=== PATIENT | female | born 1945 | race Caucasian/White ===

== ENCOUNTER 2017-02-19 12:04 | Inpatient (IN) ==
--- NOTE | 2017-02-19 13:15 | PROVIDER DOCUMENTATION ---
This chart was entered by Rosaura Norton Scribe, acting as scribe for Sanjeev Kaur MD. HPI-General Adult - General Chief Complaint: Fall Stated Complaint: ams Time Seen by Provider: 02/19/17 12:14 Source: patient Allergies/Adverse Reactions: Patient Allergies Allergy/AdvReac Type Severity Reaction Status Date / Time codeine AdvReac Unknown Verified 02/15/17 14:48 - History of Present Illness -Gen Adult Nature of Presenting Problems: Pt is 71 y/o F presents to the ED with fall. Pt denies pain. Pt's states she was on the side of the bed and slide off in to floor. Pt has hx of AMS for 6 mths to a year. Pt's states no LOC. Location of Pain/Injury: reports: none Pain Radiation: reports: no radiation Quality of Pain: reports: none Onset/Duration: reports: this morning Timing: reports: gone now Context/Activities at Onset: reports: light activity Modifying Factors: improves with: nothing Associated Symptoms: reports: denies symptoms Similar Symptoms Previously?: No Recently seen or treated by another doctor?: No Review of Systems - Adult - REVIEW OF SYSTEMS - ADULT Constitutional: reports: no symptoms reported Eyes: reports: no symptoms reported Ears, Nose, Mouth & Throat: reports: no symptoms reported Cardiovascular: reports: no symptoms reported Respiratory: reports: no symptoms reported Gastrointestinal: reports: no symptoms reported Genitourinary: reports: no symptoms reported Musculoskeletal: reports: no symptoms reported Integumentary: reports: no symptoms reported Neurological: reports: no symptoms reported Psychiatric: reports: no symptoms reported Endocrine: reports: no symptoms reported Hematologic/Lymphatic: reports: no symptoms reported Allergic/Immunologic: reports: no symptoms reported All Other Systems: Reviewed and Negative Past History - Adult - PAST MEDICAL HISTORY-ADULT Review of Records: reports: Nursing Assessment Review, Medications Reviewed, Social history reviewed & non-contributory. Major Childhood Illnesses: reports: denies history Cardiovascular: reports: HTN Respiratory: reports: sleep apnea Gastrointestinal: reports: denies history Obstetrical/Gynecological: reports: denies history Genitourinary: reports: kidney disease Musculoskeletal: reports: denies history Neurological: reports: dementia Endocrine/Immune: reports: Diabetes Other Conditions: reports: denies history - IMMUNIZATION STATUS Childhood Immunizations: See Nurse Assessment Flu Vaccine: See Nurse Assessment - FAMILY HISTORY Family History: reviewed, not pertinent Physical Exam-General - PHYSICAL EXAM-ADULT Initial Vital Signs Reviewed: Yes - CONSTITUTIONAL General Appearance: appears well, alert, no apparent distress - EYES Eyes: PERRL/EOMI, pink conjunctivae - HEAD, EARS, NOSE, MOUTH & THROAT HENMT: normocephalic/atraumatic, moist mucous membranes, normal ENT inspection, TMs normal, pharynx normal - NECK Neck: non-tender, full range of motion, supple, normal inspection - RESPIRATORY Respiratory: chest non-tender, lungs clear, normal breath sounds, no pleuratic chest pain, no respiratory distress, no accessory muscle use - CARDIOVASCULAR Cardiovascular: normal peripheral pulses, regular rate, rhythm, no edema, no gallop, no JVD, no murmur - GASTROINTESTINAL (ABDOMEN) Abdominal Exam: normal bowel sounds, non tender, soft, no organomegaly, no pulsatile mass - LYMPHATIC Lymphatic: no adenopathy - MUSCULOSKELETAL Back Exam: normal inspection, no CVA tenderness, no vertebral tenderness Extremity: normal range of motion, non-tender, normal gait, normal inspection, no pedal edema, no calf tenderness, normal capillary refill, pelvis stable - SKIN Integumentary: normal color, normal turgor, warm/dry - NEUROLOGIC Neurologic: grossly normal - PSYCHIATRIC Psych/Mental Status: normal mood/affect Progress - PLAN OF CARE/RESULTS Progress/Plan/Lab Results: Vital Signs - 8 hr 02/19/17 12:16 Temperature 98.1 F Pulse Rate 83 Respiratory Rate 18 Blood Pressure 135/82 O2 Sat by Pulse Oximetry 99 Departure - Departure Time of Disposition Decision: 13:15 DIAGNOSIS: Altered mental status, unspecified Disposition: HOME 01 Certified Medical Emergency: Emergent Condition: Stable This chart was documented by the indicated scribe, (Rosaura Norton Scribe) and accurately reflects the services I performed and decisions made by , Sanjeev Kaur MD, as attested by the provider's signature.
[2017-02-19 13:44] LABS: MANUAL DIFF NEEDED? NO
[2017-02-19 13:49] LABS: URINE SOURCE CATH
[2017-02-19 13:50] LABS: BASO% 0.2 % (0.0-0.8); EOS# 0.01 X1000 (0.0-0.7); EOS% 0.2 % (0.0-10.0); HEMATOCRIT 35.4 % (37.0-47.0); HEMOGLOBIN 12.5 g/dL (12.0-16.0); IMM GRAN# 0.02 X1000 (0.0-0.04); IMM GRAN% 0.4 % (0.0-0.5); LYMPH# 0.72 X1000 (1.2-3.4); LYMPH% 14.8 % (20.5-51.1); MCH 29.3 PG (27-31); MCHC 35.3 g/dL (33-37); MCV 83.1 FL (81-99); MONO# 0.31 X1000 (0.11-0.59); MONO% 6.4 % (1.7-9.3); MPV 9.9 FL (7.4-10.4); PLT 123 X1000 (130-400); RBC 4.26 XMIL (4.2-5.4)
[2017-02-19 13:55] LABS: BILIRUBIN URINE SMALL (NEGATIVE); BLOOD URINE NEGATIVE (NEGATIVE); COLOR YELLOW; GLUCOSE URINE NEGATIVE (NEGATIVE); LEUKOCYTES URINE MODERATE (NEGATIVE); NITRITE URINE NEGATIVE (NEGATIVE); PROTEIN URINE 30 mg/dL (NEGATIVE); SP GRAVITY URINE 1.019; TURBIDITY URINE CLEAR (CLEAR); URINE MICRO REVIEW NEEDED? YES; UROBILINOGEN URINE NORMAL (NORMAL)
[2017-02-19 13:58] LABS: UR EPITHELIAL CELLS >10 /HPF (<10); URINE BACTERIA NEGATIVE /HPF; URINE RBC <10 /HPF (<10); URINE WBC <10 /HPF (<10)
[2017-02-19 14:01] LABS: URINE CASTS GRANULAR PRESENT; URINE CRYSTALS NONE SEEN; URINE SMALL ROUND CELLS NONE SEEN
[2017-02-19 14:11] LABS: ALBUMIN 3.3 g/dL (3.5-5.0); CALCIUM 8.9 mg/dL (8.8-10.2); POTASSIUM 3.1 mmol/L (3.5-5.1); TOTAL BILIRUBIN 0.91 mg/dL (0.20-1.00); TOTAL PROTEIN 6.2 g/dL (6.3-8.3)
[2017-02-19 16:37] LABS: ALBUMIN 3.1 g/dL (3.5-5.0); CALCIUM 8.6 mg/dL (8.8-10.2); POTASSIUM 3.9 mmol/L (3.5-5.1); TOTAL BILIRUBIN 0.87 mg/dL (0.20-1.00)
[2017-02-19] MEDS ORDERED: NS 250 ML IV ONE (17:33)
[2017-02-19] MEDS ORDERED: TAZIDIME 1 GM in NS 50 ML IV ONE (20:00)
[2017-02-19] MEDS ORDERED: ZOFRAN IV PRN (20:37)
[2017-02-19 21:05] LABS: HEMOGLOBIN A1C 5.7 % (4.8-6.0)
--- NOTE | 2017-02-19 21:39 | HISTORY AND PHYSICAL ---
Patient of Dr. Perea. REASON FOR ADMISSION: 2-day history of confusion. HISTORY OF PRESENT ILLNESS: Ms. Diane Mccartney is a 71-year-old lady with past medical history of type 2 diabetes, chronic kidney disease stage 3B who has been followed by Dr. Finn regarding condition of chronic kidney disease, 2 days ago she had a peritoneal dialysis catheter placed in her abdomen by Dr. Fletcher Amezcua and since then reports that she has been cognitively declining. Prior to this the family reports that she has had a very slow progressive decline in her mentation but nothing compared to what she has now. They report that her appetite for the last 2 months has declined significantly up to the point that she has lost about 63 pounds. They report that she has also been having protracted nausea and occasional vomiting. Nothing in the last 12 hours. No reported diarrhea, no blood loss from any orifice. The patient is not able to give me any history because the patient's symptoms mildly diminished. She will follow commands however and she did answer my question as to whether she is in pain which she said no. Other than this no polyuria, polydipsia reported by the who patient lives with. No cardiorespiratory complaints the best of the 's knowledge. REVIEW OF SYSTEMS: Is very limited because of the patient's current sensorium. ALLERGIES: Patient allergic to codeine, sulfa, cortisone, Levaquin, SUSANNAH inhibitors, oxycodone. HOME MEDICATIONS: Not listed here or in her history and physical done 2 days ago. FAMILY HISTORY: Patient's family's noted who has myasthenia gravis, ALS, diabetes. No heart disease, cancer or kidney disease in first-degree relatives. SOCIAL HISTORY: Stopped smoking over 10 years ago. Lives with her , does not drink or use illicit drugs. SURGICAL HISTORY: Had bilateral knee surgeries and recent PD catheter placement, cholecystectomy, laparoscopic surgery. LABORATORY WORK: White count 4000, hemoglobin and hematocrit 12 and 35, platelets 123,000. Sodium is 134, bicarb is 17, anion gap 21, BUN is 35, creatinine 1.5, AST 49, ALT is 60, albumin is 3.1, protein is 30, ketones 20, leukocytes moderate with greater than 10 epithelial cells. PHYSICAL EXAMINATION: VITAL SIGNS: Blood pressure is 133/78, heart rate is 88, respirations 18, temperature 98 degrees, 97% on room air. GENERAL: She is an elderly woman who is laying in bed not in acute distress. She is slightly drowsy and only oriented to name, not to place or time. Is unable to recognize 1 of her sons. Her affect is somewhat flat and mood is difficult to assess. HEENT: Head is normocephalic, atraumatic. YAQUELIN EOMI. She is anicteric and not pale. ENT and oropharynx exam is grossly normal except for some mild oral thrush. No signs of cyanosis noted. NECK: Supple. No JVD or carotid bruit, thyromegaly. CHEST: Clear to auscultation. Good air entry all lung owens. CARDIOVASCULAR: First and sounds heard. No gallops, rubs. Rhythm is regular. ABDOMEN: Full, soft with minimal tenderness around the PermCath site which is on the right upper quadrant area. Dressings clean and dry. Bowel sounds are hypoactive. RECTAL: Deferred at this time. No mass is appreciated. EXTREMITIES: No edema, clubbing or cyanosis. NEURO: No focal deficits noted, power is about 4/5 in all extremities. No facial asymmetry. The patient has some degree of delay in responding to questions. It seems there is some mild degree of stupor. SKIN: Intact. No breakdown, lesion seen. MUSCULAR EXAM: Grossly normal. ASSESSMENT: 1. Metabolic encephalopathy ? dehydration cannot rule out underlying infection, very mild uremia. 2. Chronic kidney disease stage 3B. 3. Dehydration. 4. Type 2 diabetes. PLAN: This time will hydrate patient overnight. Dr. Perea was consulted by ER physician and he will see her tomorrow. The question is will this patient benefit from dialysis. It is to early too soon to say. However it would not hurt to at least give her 1 or 2 treatments to see if her sensorium improves. Family said this decline has been going on for 3-6 months but took a turn for the last 2 days. It is also possible that this patient has peritoneal dialysis catheter infection ? It is highly unlikely but all the same I would prudently treat her with a 1 time dose of Fortaz till a specimen can be collected by dialysis nurse tomorrow. If the patient improves with aggressive hydration overnight then part of her encephalopathy may be due to the dehydration. She is not on any documented medications, will do Accu-Cheks however and only treat blood sugars if they are less than 200 with 2 units. A1c has been ordered to see where diabetes stands at this point in time and if her dialysis fails to improve this patient's nausea and poor appetite alternative etiologies need to be explored. cc: Heather Perez MD
[2017-02-19] MEDS: HEPARIN SUBQ SCH (21:44)
[2017-02-19] MEDS: NS 1,000 ML IV SCH (21:44)
[2017-02-20] MEDS: MYCOSTATIN SUSP PO SCH ×5 (00:16→21:35)
[2017-02-20] MEDS: NS 1,000 ML IV SCH ×2 (06:30→17:51)
[2017-02-20] MEDS ORDERED: BLISTEX MEDICATED BERRY LIP BALM TOP PRN (06:57)
[2017-02-20 07:08] LABS: MANUAL DIFF NEEDED? NO
[2017-02-20 07:26] LABS: EOS# 0.04 X1000 (0.0-0.7); HEMATOCRIT 34.7 % (37.0-47.0); HEMOGLOBIN 12.1 g/dL (12.0-16.0); IMM GRAN# 0.02 X1000 (0.0-0.04); IMM GRAN% 0.5 % (0.0-0.5); LYMPH# 0.87 X1000 (1.2-3.4); LYMPH% 21.1 % (20.5-51.1); MCH 29.2 PG (27-31); MCHC 34.9 g/dL (33-37); MCV 83.8 FL (81-99); MONO# 0.21 X1000 (0.11-0.59); MONO% 5.1 % (1.7-9.3); MPV 9.9 FL (7.4-10.4); NEUT% 72.3 % (42.2-75.2); PLT 117 X1000 (130-400); RBC 4.14 XMIL (4.2-5.4)
[2017-02-20 07:37] LABS: ALBUMIN 3.1 g/dL (3.5-5.0); CALCIUM 8.6 mg/dL (8.8-10.2); POTASSIUM 2.9 mmol/L (3.5-5.1); TOTAL BILIRUBIN 0.87 mg/dL (0.20-1.00); TOTAL PROTEIN 5.9 g/dL (6.3-8.3)
[2017-02-20] MEDS: HEPARIN SUBQ SCH ×2 (09:40→21:34)
--- NOTE | 2017-02-20 11:53 | Diag Imaging Result Document ---
PROCEDURE NAME: HEAD W/O CONTRAST - 02/20/2017 CT OF THE HEAD: A CT dose reduction protocol was used. COMPARISON: None. FINDINGS: There is moderate diffuse atrophy. No intracranial mass or hemorrhage. The skull is intact. The sinuses, mastoids, and middle ears are clear. IMPRESSION: Moderate cerebral atrophy. No acute disease. MTDD
[2017-02-20 12:00] LABS: URINE CULTURE NEEDED? NO; URINE MICRO REVIEW NEEDED? NO; URINE SOURCE CATH
[2017-02-20 12:22] LABS: BILIRUBIN URINE SMALL (NEGATIVE); BLOOD URINE NEGATIVE (NEGATIVE); COLOR YELLOW; GLUCOSE URINE NEGATIVE (NEGATIVE); LEUKOCYTES URINE NEGATIVE (NEGATIVE); NITRITE URINE NEGATIVE (NEGATIVE); PROTEIN URINE 30 mg/dL (NEGATIVE); SP GRAVITY URINE 1.019; TURBIDITY URINE CLEAR (CLEAR); UROBILINOGEN URINE NORMAL (NORMAL)
[2017-02-20 12:23] LABS: UR EPITHELIAL CELLS <10 /HPF (<10); URINE BACTERIA NEGATIVE /HPF; URINE RBC <10 /HPF (<10); URINE WBC <10 /HPF (<10)
--- NOTE | 2017-02-20 13:00 | Diag Imaging Result Document ---
PROCEDURE NAME: US RENAL 2 (RETROPER) COMPLETE - 02/20/2017 RENAL ULTRASOUND: FINDINGS: Right kidney is 8.7 x 4.2 x 4.9 cm. The left is 10.1 x 4.9 x 4.6 cm. The left renal pelvis is somewhat distended. The resistive index is 0.73. This is slightly above the normal range. Compared to the previous study of 01/23/2017, dilatation of the renal pelvis was not previously present. There is some cortical scarring present on the right side particularly over the upper pole. The urinary bladder is unremarkable. IMPRESSION: Mild left hydronephrosis. Otherwise, stable since 01/23/2017.
[2017-02-20] MEDS: POTASSIUM CHLORIDE 20 MEQ/SWI 20 MEQ/100 ML IVPB IV SCH ×2 (15:33→17:51)
--- NOTE | 2017-02-20 15:55 | CONSULTATION ---
DATE OF CONSULTATION: 02/20/2017 REASON FOR CONSULTATION: Renal failure. HISTORY OF PRESENT ILLNESS: Ms. Mccartney is a 71-year-old white female who I have met on 2 occasions in my office. She was referred to me with several months of anorexia, nausea, weakness and a creatinine of 3.5. Her symptoms certainly sound uremic in origin. She underwent ultrasound as well as a 24-hour urine which disclosed a clearance of 15 mL/minute. She had asymmetrical kidneys suggestive of renal vascular disease. Having discussed her symptoms and her kidney disease, we decided to initiate peritoneal dialysis. She had a PD catheter placed on Monday. Since that time, she has had declining sensorium. She has been unable to ambulate without assistance and she has been progressively less interactive. She is currently lying in bed with eyes open but is not able to verbalize any answers to any questions. The family states that these symptoms have been somewhat progressive in nature since Monday evening. She had been able to walk on Monday but Monday she required assistance and then Monday morning she ended up on the floor having tried to get herself up while her was away at [employer] School. No shortness of breath. She has not vomited. She has had essentially no p.o. intake and she has also made essentially no urine over that period of time. PAST MEDICAL HISTORY: 1. Chronic kidney disease as above. 2. Hypertension. 3. Persistent nausea and vomiting. ALLERGIES: Sulfa, codeine, cortisone, Levaquin, SUSANNAH inhibitors. FAMILY HISTORY: Positive for diabetes, ALS. No kidney disease. SOCIAL: Former smoker. Lives with her who has some cognitive decline. PHYSICAL EXAMINATION: Vital Signs: Blood pressure 154/83, heart rate 82, respirations 16, afebrile. Generally: She is an elderly woman lying in bed. Eyes are open. She looks at me and did follow the command to protrude the tongue. Otherwise did not follow commands. Skin: Warm and dry. HEENT: Conjunctivae are pink. Pupils are equal. Extraocular movements appear intact. Tongue is midline. It is dry and beefy red. Neck: Supple. Trachea is midline. Neck veins are not visible. Heart: Regular with S4. No rubs. Lungs: Have equal breath sounds. No crackles or wheezes. Abdomen: Soft and mildly tender her incision site. Bowel sounds are normal. No organomegaly or masses. Extremities: Have no edema, clubbing, or cyanosis. LABORATORY DATA: Sodium 140, potassium 2.9, chloride 102, bicarbonate 20, BUN 31, creatinine 1.2. Hemoglobin 12.1. IMPRESSION: 1. Altered sensorium following surgery. Etiology is not obvious to me. Certainly postanesthesia effects in a patient with chronic kidney disease might cause these symptoms. However, her kidney function is improved at least based on her laboratory data. I am not sure what to think of this so I will ask Dr. Ty to see her. CT of the brain is ordered. 2. Nausea, vomiting, anorexia. Again this was attributed to uremia but her labs have improved. The family states she is making no urine at this time. We will go ahead and initiate PD with 1 L dwells and at the same time remeasure her kidney function. She will require Pham catheter. 3. Electrolytes: We will treat hypokalemia. 4. Acid-base acceptable. cc: Maulik Perea MD
[2017-02-20] MEDS ORDERED: POTASSIUM CHLORIDE 20 MEQ/SWI 20 MEQ/100 ML IVPB IV SCH (17:00)
--- NOTE | 2017-02-20 17:27 | CONSULTATION ---
DATE OF CONSULTATION: 02/20/2017 Ms. Mccartney is 71 years old. She has history of renal failure and had recent catheter placed to have peritoneal dialysis. Later in the day following that, family spoke with her by phone and found her to seem a little bit sluggish but nothing really remarkable at that point. Later, she seemed more sluggish and seemed to have trouble maintaining her attention. Mgoealiz-jm-let at the bedside reports noticing some forgetfulness for the last year, gradually worse, particularly more prominent over the last few months since Thanksgiving. There is no history of serious head injury, previous diagnosed stroke, seizure, ethanol abuse, illicit drug use. She has seemed a little bit sluggish from time to time but has never had current appearance in the past, according to the mqbvoosk-yp-nqr. Past history is remarkable for diabetes mellitus. Workup here includes lab showing creatinine has declined from 3.5 to 1.5 and then 1.2. BUN has been steady in the low 30s. Liver enzymes are mildly elevated. She has been afebrile. Systolic blood pressures have ranged 120s to 160s. Vmknjtvw-kb-vtw does not know patient's home medications. I do not find an up- to-date home medication list in the current chart. There was listed hydrocodone/acetaminophen 10/325 to use as needed for pain after her peritoneal dialysis catheter was placed 3 days ago. I do not know whether she has used that drug or not. Ofngbbrx-bn-byq reports patient had hallucinations associated with codeine in the past. Hyogjdlr-wa-jri reports patient recently returned from imaging which may have been CT scan of the head ordered without contrast earlier this morning. I do not have that CT report. On exam, Ms. Mccartney is asleep, easily awakened and she remained alert during the time that I vigorously rubbed her shoulder. When not stimulated vigorously, she seemed quickly back to sleep. When awake, she answered some questions appropriately but was very slow to respond verbally and often did not answer questions including identifying ukxpyiyd-nf-ois by name, naming the hospital, naming the day of the week. She did follow simple commands including commands which required right/left distinction and digit distinction. Her speech was limited, a little bit dysarthric but understandable. She has full visual field tested grossly by confrontational finger counting. Extraocular movements are full. Facial motility seems a little diminished bilaterally, but symmetric. Gag is intact. Tongue is midline. She has equal tone in the limbs. She demonstrated good power in each limb. Plantar response is extensor bilaterally. Reflexes are absent at the ankles, 1+ at the wrists bilaterally. She grumbled and withdrew each leg when I attempted to check reflexes at the knees bilaterally. She has bilateral leg scars consistent with previous knee replacements. She was not attentive to careful sensory testing over the limbs. I did not ask her to stand or walk. IMPRESSION: 1. Global encephalopathy, no definite focal findings, no definite evidence of increased intracranial pressure or central nervous system infection. I suspect this is a multifactorial encephalopathy with possible contribution from her relatively mild uremia. Her baseline cognitive impairment syndrome would predispose her to more significant and more protracted encephalopathy with relatively minor toxic or metabolic disturbance. I will check on the CT when that is reported. We might consider EEG and possibly LP. I do not think any of this is urgent. 2. Mild cognitive impairment versus dementia at baseline. We can consider cholinesterase inhibitor trial when practical, not urgent. Thanks for asking me to see Ms. Mccartney. cc: MD SAWYER Viera III
--- NOTE | 2017-02-20 19:36 | PROGRESS NOTE ---
DATE: 02/20/2017 SUBJECTIVE: Today I was able to see Ms Mccartney, the was in the room as well as a daughter and a friend. Briefly Ms. Mccartney has been having some nausea, vomiting for some time. This has been attributed to the fact that she has kidney disease however Neto she had a peritoneal dialysis catheter placed in and since then she has been going downhill, extremely weak, not drinking, just confused since yesterday. From what the daughter just told me after the Pham catheter was inserted in the bladder about 1000 mL of urine was removed. OBJECTIVE: Vital signs: Blood pressure is 145/94, pulse of 89, respirations 18 , temperature is 98.3 degrees. General: Ms. Mccartney 71-year-old female. She was in bed. She is extremely confused and looked dry mucus. HEENT: Anicteric and acyanotic. Neck : Supple. Chest: Good air entry bilateral. No crepitations. No rhonchi. Cardiovascular: Regular rate and rhythm. Abdomen: Soft. Mildly distended. There is no peritoneal irritation, guarding or rebound tenderness. There is a PD catheter in place and dialysis ongoing. Extremities: No pedal edema. DISTRICT RECRUITER: Patient is awake, get extremely confused and is very inattentive, keeps moving her arms all over. She does not really answer your question appropriately. She moves her extremities. LABORATORY DATA: WBC is 4.12, hemoglobin is 12.1, platelet count of 117,000. Sodium is 140, potassium is 2.9, chloride is 102, bicarb is 20, creatinine is down to 1.2, AST is 48, ALT is 59. An ultrasound of the abdomen which was done just this morning has shown mild left hydronephrosis otherwise stable. ASSESSMENT: 1. Altered mental status secondary to global encephalopathy. Patient continues to be delirious. I think the etiology is likely be a toxic metabolic encephalopathy from UTI. Neurology has been consulted. Will follow up with their further recommendations for now. Patient did have urine retention and I am concerned she probably has urinary tract infection. An ultrasound has shown a mild left hydronephrosis so I think she probably has a genuine urinary tract infection which is causing this altered mentation. I have started her on Zosyn renally dosed while we wait for urology further recommendations. 2. Mild left hydronephrosis. We have started the patient on antibiotics. We will do a renal stone search CT scan and we will consult urology to evaluate the patient. It is more concerning because patient only has a left kidney which partially functions. The right kidney is completely shut down. 3. Hypokalemia. We will replace this. Since patient is getting peritoneal dialysis we anticipate that she is going to lose more potassium so we will aggressively replace this. 4. Clinical dehydration. Patient is getting intravenous fluids. I think part of her problem of her altered mentation could also be from dehydration. 5. Mild transaminitis. Etiology is unclear. Patient is about 33.8 in body mass index. There is suspicion she could have steatohepatitis non-alcohol related. We will however do hepatitis panel to make sure there is no any underlying viral hepatitis. Whenever patient is stable enough we can do an ultrasound of the liver to have a better idea anatomical. 2. Kidney failure. Patient is currently getting 24 urine collection for better characterization of the kidney function. 3. High anion gap metabolic acidosis on presentation. This could be just all related to the infection as well as the kidney disease, with the hydration though this has slightly improved. We will continue to monitor. So in general Ms. Mccartney continues to be altered and delirious. I think this is due to a left hydronephrosis with urinary tract infection and bladder outlet obstruction disease. Pham has been inserted, has have very good urine output. We will get Urology also to see the patient because of the left hydronephrosis. Will start the patient on antibiotics and we will do a renal stone search. cc: Joel Alexander MD MTDD
[2017-02-20] MEDS: BENADRYL IV PRN (21:34)
[2017-02-20] MEDS: ZOSYN 2.25 GM/NS 2.25 GM/50 ML IVPB IV SCH (21:34)
[2017-02-21] MEDS: ZOSYN 2.25 GM/NS 2.25 GM/50 ML IVPB IV SCH ×4 (02:26→21:10)
[2017-02-21] MEDS: NS 1,000 ML IV SCH ×3 (06:53→17:36)
[2017-02-21 07:08] LABS: MANUAL DIFF NEEDED? NO
[2017-02-21 07:15] LABS: EOS# 0.04 X1000 (0.0-0.7); HEMATOCRIT 33.6 % (37.0-47.0); HEMOGLOBIN 11.5 g/dL (12.0-16.0); LYMPH# 0.68 X1000 (1.2-3.4); LYMPH% 16.8 % (20.5-51.1); MCH 28.7 PG (27-31); MCHC 34.2 g/dL (33-37); MCV 83.8 FL (81-99); MPV 9.8 FL (7.4-10.4); NEUT% 77.2 % (42.2-75.2); PLT 105 X1000 (130-400)
[2017-02-21 07:31] LABS: ALBUMIN 2.8 g/dL (3.5-5.0); CALCIUM 8.4 mg/dL (8.8-10.2); POTASSIUM 3.2 mmol/L (3.5-5.1)
[2017-02-21] MEDS: FLOMAX PO SCH (08:34)
[2017-02-21] MEDS: HEPARIN SUBQ SCH ×2 (08:34→21:11)
[2017-02-21] MEDS: MYCOSTATIN SUSP PO SCH ×4 (08:44→21:11)
[2017-02-21 10:18] LABS: INR 1.01; PROTIME 10.6 Seconds (9.2-11.7)
[2017-02-21 10:36] LABS: RBC 4.01 XMIL (4.2-5.4)
--- NOTE | 2017-02-21 11:45 | PROGRESS NOTE ---
DATE: 02/21/2017 Ms. Mccartney looks about the same to me. This morning, I met and son. They confirmed cjihsdyk-jh-szy's report that forgetfulness has been ongoing, worse in recent months. However, she has never had current appearance in the past. She took only 1 recent dose of her hydrocodone/acetaminophen for pain and that did not seem to have any adverse effects. She did have hallucinations and a period of agitation following codeine in the remote past. She has not had any other new medication. We reviewed discussion of possibility that her baseline cognitive impairment would predispose her to relatively protracted encephalopathy with any metabolic disturbance. Her recent laboratory work does not show significant uremia. ASSESSMENT AND PLAN: I am optimistic that she will improve with time. If not, we will consider further neurologic workup. Would consider adding cholinesterase inhibitor at some point, not urgent Thanks for asking me to see Ms. Mccartney. cc: Lefty Ty III, MD MTDD
--- NOTE | 2017-02-21 12:20 | PROGRESS NOTE ---
DATE: 02/21/2017 SUBJECTIVE: She is really about the same. Eyes are open, but she really does not fix on me. She does make some purposeful movement, but mostly thrashes. OBJECTIVE: Vital Signs: Blood pressure 144/77, heart rate 79, respirations 20, afebrile. Intake 100 mL. Output 3 L. General: On physical exam, no acute distress. Skin: Warm and dry. Eyes: Conjunctivae are pink. Pupils are equal. Neck: Neck veins are not visible. Trachea is midline. Heart: Regular. Lungs: Have equal breath sounds. No crackles or wheezes. Abdomen: Soft and nontender. Bowel sounds are present. Mildly tender at surgical sites. No guarding or rebound. Extremities: Have no edema, clubbing, or cyanosis. IMPRESSION: 1. Delirium. Etiology is not obvious. Appreciate the help of consultants. 2. Urinary retention. Improved with Pham catheter. 3. New left-sided hydronephrosis. Evaluated by Dr. Everett. CT results are pending. 4. Chronic kidney disease. Her kidney function is really excellent and we will not use any further peritoneal dialysis. cc: Maulik Perea MD
[2017-02-21 13:12] LABS: UR PROTEIN 30.7 mg/dL
--- NOTE | 2017-02-21 14:18 | PROGRESS NOTE ---
DATE: 02/21/3027 SUBJECTIVE: Today Ms. Mccartney continues to be the same. She is still altered and very fidgety and is extremely inattentive. OBJECTIVE: Vital signs: Blood pressure is 144/77, pulse of 79, respiration is 20, temperature is 97.9 degrees. General: Ms. Mccartney is a 71-year-old female. She was in bed. She did not seem to be in any distress. HEENT: Mucosa is dry. Anicteric. Chest: Clear. Cardiovascular: Regular rate and rhythm. Abdomen: Soft. There is a peritoneal dialysis catheter in place. Bowel sounds are present. INGOT STRIPPER: Patient is awake, but non focalizing and extremely inattentive. She is able to follow some basic commands but she continues to be confused. LABORATORY DATA: WBC is 4.04, hemoglobin is 11.5, platelet count of 105,000. Chemistry is reviewed. Sodium is 3.2, bicarb is 20, BUN is 22, creatinine is 1.1, phosphorus is 1.5, and calcium is 8.4. ASSESSMENT: 1. Acute altered mental status with no focalizing signs. I think this is probably a toxic metabolic encephalopathy from infection versus severe dehydration. Patient is getting treatment for both. 2. Clinical dehydration. We will continue on IV hydration. 3. Mild left hydronephrosis. Patient had a CT scan of the kidneys with stone search protocol, we are still pending the report on this, and Urology has also been consulted. We will continue the patient on the current IV antibiotics whereas we are awaiting the Urology recommendations and also the urine culture. 4. Hypokalemia. We will continue to replace this. 5. Steatohepatitis. So in general Ms. Mccartney remains the same. Mentation has not really improved and her hydration status continues to be poor. We would therefore continue with the IV fluids, the current antibiotics, and will be pending the CT report on the left hydronephrosis that was picked up on the ultrasound. I understand the peritoneal dialysis has been withheld for now. cc: Joel Alexander MD
--- NOTE | 2017-02-21 16:08 | Diag Imaging Result Document ---
PROCEDURE NAME: RENAL STONE SEARCH - 02/21/2017 CT UROGRAM WITHOUT CONTRAST: COMPARISON: There are no previous CT examinations FINDINGS: There is a tiny amount of pleural fluid present on the right. There is minimal atelectasis in the lung bases particularly the left posterior costophrenic sulcus. There is a small amount of ascites. The spleen is not enlarged. The adrenal glands are not enlarged. There has apparently been previous cholecystectomy. The pancreas is slightly atrophic in appearance. There is fullness in the left renal pelvis. There is considerable cortical scarring on the right side. The left ureter is not distended. There is no evidence of ureterolithiasis. There is a Pham catheter in the bladder which is completely empty. There are numerous pelvic phleboliths. There is a peritoneal dialysis catheter in the pelvis to the right of the urinary bladder. There is no evidence of bowel obstruction. There may be some mucosal thickening in the ascending colon. There are fairly large segments of the descending colon and sigmoid which are completely nondistended. No significant adenopathy is present. There is some gas around the point at which the peritoneal dialysis catheter penetrates the abdominal fascia anteriorly over the upper pelvis. The significance of this finding is not entirely clear. Otherwise, there is no evidence of free intra-abdominal gas. There is no evidence of appendicitis. 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 There are spondylotic changes in the lumbar spine. IMPRESSION: Possibility of right-sided colitis cannot be excluded. No evidence of obstructing lesion in the left ureter on this noncontrast study.
[2017-02-22] MEDS: NS 1,000 ML IV SCH (04:18)
[2017-02-22] MEDS: ZOSYN 2.25 GM/NS 2.25 GM/50 ML IVPB IV SCH ×4 (04:18→21:57)
[2017-02-22 06:50] LABS: HEMATOCRIT 33.1 % (37.0-47.0); HEMOGLOBIN 11.1 g/dL (12.0-16.0); MCH 28.5 PG (27-31); MCHC 33.5 g/dL (33-37); MCV 85.1 FL (81-99); MPV 9.4 FL (7.4-10.4); RBC 3.89 XMIL (4.2-5.4)
[2017-02-22 07:01] LABS: ALBUMIN 2.6 g/dL (3.5-5.0); CALCIUM 7.8 mg/dL (8.8-10.2); POTASSIUM 3.1 mmol/L (3.5-5.1); TOTAL BILIRUBIN 1.15 mg/dL (0.20-1.00)
[2017-02-22] MEDS: FLOMAX PO SCH (08:06)
[2017-02-22] MEDS: HEPARIN SUBQ SCH ×2 (08:06→21:57)
[2017-02-22] MEDS: MYCOSTATIN SUSP PO SCH ×3 (08:06→22:01)
[2017-02-22] MEDS: VITAMIN D PO SCH (08:07)
[2017-02-22] MEDS ORDERED: STERILE WATER IV SCH (10:38)
[2017-02-22] MEDS ORDERED: SODIUM BICARBONATE IV SCH (10:38)
--- NOTE | 2017-02-22 11:03 | PROGRESS NOTE ---
DATE: 02/22/2017 SUBJECTIVE: The patient is really unchanged with mentation. Her eyes are open. She does not make eye contact. The family is at the bedside and state that she has periods where she will focus in and communicate, and then she will kind of zone back out. She has been unable to eat. OBJECTIVE: Vital Signs: Temperature 99.2 degrees, pulse 71, respiratory rate 18, blood pressure 144/73, intake 800 mL, output 1 L. General: This is an elderly female, resting in bed. She is awake but is not oriented. She really makes no indication that she is aware that anyone is there except to painful stimuli. It appears that her legs are painful to touch. HEENT: Normocephalic, atraumatic. Her oral mucosa is very dry. YAQUELIN. Neck: Supple. There is no JVD. Cardiovascular: Regular rate and rhythm. There is no murmur appreciated. Pulmonary: She has equal excursion. She is clear. Abdomen: Soft, with positive bowel sounds. : She has a Pham catheter with yellow urine noted. Extremities: Perhaps trace pretibial edema. She does wince and moan to palpation of extremities. Integumentary: Skin is thin, warm, and dry. Laboratory Data: WBC of 3.5, hemoglobin 11.1. Sodium 136, potassium 3.1, CO2 19, BUN 17, creatinine 1.1, albumin 2.6, calcium 7.8. She had a 24 hour urine that indicated creatinine clearance of greater than 100% and 614 mg of proteinuria. She had a renal CT completed yesterday afternoon that indicated the possibility of right-sided colitis but no obstruction, lesion in the left ureter. She has minimal atelectasis. No other acute findings. ASSESSMENT AND PLAN: 1. Delirium. Again, unclear etiology. We have been able to rule out that her renal function is contributing to this at this point. Continue to follow with the help of the consultants. 2. Urinary retention, improved with Pham catheter with perhaps left-sided hydronephrosis shown on ultrasound. Dr. Everett consulted. 3. Chronic kidney disease. Her 24 hour urine indicated that she has normal renal function once her urinary retention has been eliminated. She will no longer need peritoneal dialysis. We will consider having this removed at an appropriate time. Seen, data reviewed, discussed with Chery Rios on 02/22/17. I agree with the above assessment and plan of care. rg Dictated by AMEENA Deal for Maulik Perea MD cc: Maulik Perea MD [facility]
--- NOTE | 2017-02-22 11:23 | PROGRESS NOTE ---
DATE: 02/22/2017 Ms. Mccartney is sleeping peacefully now. Family reports she had been more alert, responding more appropriately, saying some understandable words earlier today. She had seemed more alert and attentive in the night, and had greater volume of speaking but speech was mumbled and hard to understand overnight. I continue to believe this is a global encephalopathy, likely toxic/metabolic with baseline cognitive impairment as the reason for the protracted recovery. I do not have any new suggestion today. Thanks for allowing me to follow Ms. Mccartney. cc: Lefty Ty III, MD
[2017-02-22 11:24] LABS: HEPATITIS PROFILE ACUTE SEE COMMENTS
[2017-02-22] MEDS ORDERED: D50W SYRINGE ONE (11:44)
[2017-02-22] MEDS ORDERED: D50W SYRINGE IV PRN (11:47)
--- NOTE | 2017-02-22 11:50 | CONSULTATION ---
DATE OF CONSULTATION: 02/21/2017 CONSULTING PHYSICIAN: Dr. Alexander. REASON FOR CONSULTATION: Left hydronephrosis, urinary retention. HISTORY OF PRESENT ILLNESS: A 71-year-old female with previous urologic history of glomerulonephritis which reportedly caused significant scarring in the right kidney. She has chronic kidney disease and recently underwent peritoneal dialysis catheter placement by general surgery. She had performed dialysis per family for a couple of days without difficulties. The family then reported the patient has reported persistent nausea, vomiting, loss of taste, as well as altered mentation. She was brought into the emergency room and admitted. She reportedly has not voided in several days, and Pham catheter was placed with 1 L of urine return. She had renal ultrasound 02/20/2017 which showed mild left hydronephrosis. The patient is currently not responding; hence the history was obtained per family. PAST SURGICAL HISTORY: Bilateral knee replacements, cholecystectomy, peritoneal dialysis catheter placement. PAST MEDICAL HISTORY: Chronic kidney disease, diabetes mellitus. ALLERGIES: Codeine. SOCIAL HISTORY: Per family, former smoker, no alcohol or drug use. FAMILY HISTORY: No history of malignancies. REVIEW OF SYSTEMS: Unobtainable secondary to patient's mental status. PHYSICAL EXAMINATION: Vital Signs: T 97.6 degrees, P 84, BP 149/74. General: No acute distress. HEENT: Normocephalic, atraumatic. Cardiovascular: Regular rhythm. Abdomen: Nontender, nondistended. : Bladder is nontender to palpation. Lymphatic: No groin lymphadenopathy noted. Dermatologic: No obvious skin rashes. PERTINENT LABORATORY DATA: White cell count of 4000, hematocrit of 34, creatinine of 1.1. PERTINENT IMAGES: Renal ultrasound on 02/20/2017 revealing mild left hydronephrosis, CT of abdomen and pelvis and renal stone search on 02/21/2017 revealing cortical scarring of the right kidney and mild left hydronephrosis. ASSESSMENT: A 71-year-old female with chronic kidney disease, who recently underwent peritoneal dialysis, catheter placement, and is now admitted with significant alteration mental status. I have explained to the patient that her hydronephrosis was likely related to urinary retention. CT scan did not show evidence of stones or sizable lesions. We discussed conservative approach with keeping Pham catheter in for 2-3 days, and then repeat renal ultrasound at which point the hydronephrosis will likely decline or resolve. I am not quite certain why she had urinary retention, but it likely has something to do with her mental status alteration. PLAN: 1. Keep Pham catheter in to gravity drainage for now. 2. Will plan to repeat renal ultrasound in a couple of days. Thank you for the consultation. cc: Hilton Everett MD
[2017-02-22 12:06] LABS: ALLEN TEST YES; BE -1.2 mmoll (-3.0-3.0); BLOOD TYPE ARTERIAL; DRAW SITE R RADIAL; METHB 1.8 % (0.0-1.5); O2(CT) 15.7 mL/dL (15.0-23.0); PCO2(98.6) 25 mmHg (35-45); PO2(98.6) 92 mmHg (60-100); SAMPLE BLOOD; SAO2 99.3 % (95.0-100.0); THB 11.6 g/dL (11.5-17.4); pH(98.6) 7.52 (7.35-7.45)
[2017-02-22 12:07] LABS: MODALITY ROOM AIR
--- NOTE | 2017-02-22 17:36 | PROGRESS NOTE ---
DATE: 02/22/2017 SUBJECTIVE: Today, Ms. Mccartney continues to be the same to me; however, the son and the at the bedside think that she probably showed a little bit of improvement in terms of her responses and interactiveness. OBJECTIVE: Vital signs: Blood pressure is 143/67, pulse of 73, respirations 20, temperature 98.4 degrees. General: Ms. Mccartney is a 71-year-old female. She was in bed. She was not in any distress. HEENT: Mucosa is slightly dry. Anicteric and acyanotic. Neck: Supple. Chest: Good air entry bilaterally. No crepitations. Abdomen: Soft. There is a peritoneal dialysis catheter in place. Bowel sounds are present. ACTUARY: Patient seems to be drowsy, but easily arousable. Does not follow any commands. Will only move extremities. Extremities: Patient will also groan and moan and then go back to sleep. LABORATORY DATA: WBC is 3.53, hemoglobin is 11.1, platelet count is 77,000. Chemistry is reviewed. Sodium is 146, potassium is 3.1, chloride is 109, bicarb is 19, creatinine is 1.1. Patient's 24 urine collection was normal. ASSESSMENT: 1. Altered mental status with no focalizing signs. We think this is due to toxic metabolic encephalopathy on top of baseline cognitive decline, however, patient has not shown any remarkable improvement in the 24 hour period. I would therefore go ahead and investigate her more thoroughly, including doing B12, folate levels. We will also do RPR, human immunodeficiency virus. We will do antinuclear antibody and sedimentation rate, C-reactive protein for inflammatory etiologies. We will do a thyroid stimulating hormone and cortisol level for metabolic, endocrine, and I will order magnetic resonance imaging of the brain to be done tomorrow if there is no improvement. If all these investigations come out to be normal, I would go ahead and do a lumbar puncture since this seems to be acute onset. Patient is already on antibiotics. We will plan to continue with the same. 2. Clinical dehydration. We will continue with IV fluids. 3. Mild left hydronephrosis. A computed tomography scan was negative. Neurology has seen the patient and the thought process is probably from the urine retention which caused the mild hydronephrosis, and the plan is to repeat an ultrasound in a couple of days. 4. Urinary retention. The patient had a Pham catheter which was easily evacuated. In the context of urinary retention, altered mental status, there is always the concern for normal pressure hydrocephalus. However, a computed tomography scan did not show any enlargement of the ventricles. We would, however, do an magnetic resonance imaging tomorrow morning to give us a better detailed anatomy of the brain. 5. Hypokalemia, resolved. 6. Transaminitis, improving. We think it is probably related to steatohepatitis. When we are doing the renal ultrasound, we would actually do a complete abdomen to also capture the liver. PLAN: In general the blood cultures have been negative. Urine culture has been negative. To my evaluation, I do not think Ms. Mccartney has shown any remarkable sensorium improvement. She continues to be stuporous. I am now getting more concerned since there has not been any improvement. I will therefore investigate her further to rule out any endocrinopathy or any inflammatory noninfectious. We will do magnetic resonance imaging to have a better anatomy of the brain and the structures and will pursue a lumbar puncture if there is no any remarkable improvement. Because of the mild gap acidosis, we had changed the patient's fluid to actually D5 with bicarbonate. However, her arterial blood gas actually shows pH of 7.52 which is extremely alkalotic, so I would discontinue the bicarb part of the fluid and only put her on D5 half-normal saline and recheck on her labs for tomorrow morning. I did explain all these changes to the son and the father who were both in the room and they were in agreement. CRITICAL TIME SPENT: 45. cc: Joel Alexander MD
[2017-02-22] MEDS: D5 1/2 NS 1,000 ML IV SCH (22:00)
[2017-02-23] MEDS: ZOSYN 2.25 GM/NS 2.25 GM/50 ML IVPB IV SCH ×2 (04:42→10:16)
[2017-02-23 07:13] LABS: HEMATOCRIT 30.9 % (37.0-47.0); HEMOGLOBIN 10.3 g/dL (12.0-16.0); MCH 28.3 PG (27-31); MCHC 33.3 g/dL (33-37); MCV 84.9 FL (81-99); MPV 9.9 FL (7.4-10.4); PLT 63 X1000 (130-400); RBC 3.64 XMIL (4.2-5.4)
[2017-02-23 07:19] LABS: RETIC% 0.21 % (0.8-2.1); RETIC-HE 24.7 PG (28.2-36.6)
[2017-02-23 07:44] LABS: ALBUMIN 2.7 g/dL (3.5-5.0); CALCIUM 7.6 mg/dL (8.8-10.2); POTASSIUM 2.7 mmol/L (3.5-5.1)
[2017-02-23 07:51] LABS: TOTAL IRON 118 ug/dL (49-151); UNBOUND IRON < 10 ug/dL (112-346)
[2017-02-23 07:52] LABS: FERRITIN 320 ng/mL (13-150)
[2017-02-23] MEDS ORDERED: FOLIC ACID 1 MG in NS 50.0 ML IV ONE (09:00)
[2017-02-23] MEDS ORDERED: M.V.I.-12 10 ML, FOLIC ACID 1 MG, MAGNESIUM SULFATE 1 GM, THIAMINE 100 MG in NS 1,000 ML IV ONE (09:00)
--- NOTE | 2017-02-23 09:13 | Diag Imaging Result Document ---
PROCEDURE NAME: MRI BRAIN W W/O CONTRAST - 02/22/2017 MRI BRAIN WITHOUT AND WITH INTRAVENOUS CONTRAST: COMPARISON: Head CT 02/20/2017. FINDINGS: There is no area of restricted diffusion. At the superior right parietal lobe, there is a small minimally enhancing round nodule based at the dura mater. This measures about 8 mm maximally. This is isointense to noble matter. No intracranial hemorrhage. The pituitary is very atrophic. No abnormal signal within the brain matter itself. IMPRESSION: 1. Mild cerebral atrophy. 2. Small right superior parietal meningeal-based nodule compatible with a small meningioma. 3. Global atrophy of the pituitary.
[2017-02-23 09:21] LABS: LYMPHS 44 % (21-51); MONO 2 % (1-9)
[2017-02-23 09:35] LABS: INR 1.04; PROTIME 10.9 Seconds (9.2-11.7)
[2017-02-23] MEDS: VITAMIN D PO SCH (10:17)
[2017-02-23] MEDS: FLOMAX PO SCH (10:17)
[2017-02-23] MEDS: CYANOCOBALAMIN IM SCH (10:17)
--- NOTE | 2017-02-23 11:00 | PROGRESS NOTE ---
DATE: 02/23/2017 SUBJECTIVE: Ms. Mccartney has continued to be a little bit more alert and attentive for brief periods of time day by day in the last few days. Son at the bedside reports for 10 or 15 minutes overnight, she communicated and spoke in words that could be understood, but not clear that she was responding to what was said to her. Also, son reports that just after her period of increased alertness, she grabbed the bed rails and had some shaking diffusely for several minutes. That shaking gradually improved in the night and has not happened this morning. She has had further workup including brain MRI reported to show mild cerebral atrophy, pituitary atrophy, small right parietal extraaxial nodule consistent with meningioma measuring 8 mm. LABORATORY WORK: Today sed rate is 84, cortisol 21.5, RPR nonreactive. Creatinine is down to 1.0. B12 is borderline at 214 with no previous B12 levels reported for comparison. MCV has consistently been 83-85 range this admission. Her anemia has been gradually worse, hemoglobin 13.2 last week, 10.3 today. Hepatitis profile was all nonreactive a few days ago. Vital signs: She continues afebrile. Blood pressures have ranged 120s to 150s systolic over the last several days. ASSESSMENT AND PLAN: I do not have any new thoughts from neurologic standpoint. She has baseline cognitive impairment and a protracted global encephalopathy showing some evidence of recovery in recent days. cc: Lefty Ty III, MD [facility]
--- NOTE | 2017-02-23 13:09 | PROGRESS NOTE ---
DATE: 02/23/2017 SUBJECTIVE: Today, Ms. Mccartney continues to be altered. According to the son, there are episodes where she seems to be a little bit more lucid and she has been having these jerky intermittent movements every now and then. As a matter of fact, during the encounter, there was an episode where I witnessed it myself. It lasted for less than a minute, where she was just shaking the right-sided upper extremity. During the episode, she was not able to respond and then, after the convulsive episode, she would just go to sleep in a postictal fashion, and I think this is a seizure. OBJECTIVE: Vital Signs: Blood pressure is 121/68, pulse of 73, respirations 18, temperature is 98.7 degrees. General: Ms Mccartney is a is a 71-year-old female. She is in bed. She is not in any distress. HEENT: Mucosa is slightly dry, but anicteric and acyanotic. Neck: Supple. Chest: Good air entry bilaterally. Cardiovascular: Regular rate and rhythm. Abdomen: Soft. Extremities: No pedal edema. Central Nervous System: Patient is extremely drowsy, will groan and moan to painful stimulation, and will move extremities on painful stimulation. LABORATORY DATA: WBC is 3.17, hemoglobin is 10.3, platelet count of 63,000. Chemistry: Sodium is 143, potassium is 2.9, chloride is 104, bicarbonate is 21, creatinine is 1.0, phosphorus is 1.6, calcium 7.6. Vitamin D is 5. B12 is 214. Folate is 2.0. C-reactive protein is high. ASSESSMENT: 1. Altered mental status with no focal signs. This is likely due to global encephalopathy. Etiology is not clear. The patient has high inflammatory markers and I am not sure if there is any inflammatory noninfectious etiology or a subacute or chronic type of infection that is driving her altered mentation. We would go ahead and order a lumbar puncture since the MRI was not very convincing. 2. Multivitamin and mineral deficiencies. The patient is extremely deficient in B12, folate, and vitamin D. We will replace all these, since this can also compound whatever she is going through now. Of note, her TSH and cortisol levels were normal. 3. Hypokalemia. We will replace this. 4. Clinical seizures. The patient has been having intermittent jerky movements. There was an episode that I witnessed myself that lasted less than a minute where the right side was just going with a rhythmic jerking movement. The patient was nonresponsive during the episode and, immediately after, she was just out of it and sleeping. I think this is a form of seizure, but I am not sure that is what is driving her to come to the hospital. I think there might be something underlying which is causing her medical problem and seizure just happens to be part of the whole syndrome. We will, however, load her with Keppra 1000 mg and schedule her b.i.d. Neurology is also on board and will follow up with their further recommendations. 5. Mild left hydronephrosis. This has been taken care of. 6. Urinary retention. Patient has Pham catheter and she is doing a whole lot better. 7. Transaminitis, also improving. 8. Pancytopenia, likely nutritional. We will keep a very close eye on this. We might end up having to consult Heme/Onc, but we will wait on that for today. So, in general, I think Ms. Mccartney continues to be stable, but with no clear diagnosis. We are still pending evaluation from Neurology and Nephrology today. We are going to do an LP. We are going to correct all her nutritional deficiencies and we will start the patient on IV Keppra until she is evaluated by Neurology. We will also order tests on the CSF. I have already spoken with Dr. Brewer on the LP request. I have spoken extensively to the son and the of the patient, who were both in the room at the time of the encounter. cc: Joel Alexander MD
--- NOTE | 2017-02-23 13:28 | Diag Imaging Result Document ---
PROCEDURE NAME: LUMBAR PUNCT W/FLURO GUIDE - 02/23/2017 FLUOROSCOPIC GUIDED LUMBAR PUNCTURE: COMPARISON: None. TECHNIQUE: The patient was placed prone on the fluoroscopy table. Overlying skin was prepped and draped in sterile fashion. Anesthesia was achieved with injection of 5 mL of 1% lidocaine. Using intermittent fluoroscopic guidance, the spinal needle was advanced at the L2-L3 space. Finally, some clear CSF was visible. However, there was profound CSF hypotension, and the only way CSF could be obtained was with gentle syringe aspiration. In an attempt to obtain greater CSF flow, the needle was advanced somewhat, and there was some bleeding as a result. One fairly clear and 2 very bloody tubes of CSF were obtained. The needle was withdrawn intact. The patient reported no symptoms from the procedure and was observed to be in the same condition as prior to the procedure. IMPRESSION: Successful fluoroscopic-guided lumbar puncture. There is profound CSF hypotension, with no discernible opening pressure.
[2017-02-23] MEDS: KEPPRA 1,000 MG in NS 100 ML IV SCH ×2 (13:50→23:27)
[2017-02-23 13:55] LABS: GLUCOSE CSF 53 mg/dL (39-75)
[2017-02-23 14:10] LABS: APPEARANCE RED
[2017-02-23 14:11] LABS: DIFF NEEDED? YES; RBC BF 5340 /cumm; WBC BF 15 /cumm
[2017-02-23] MEDS ORDERED: NS 250 ML ONE (15:06)
--- NOTE | 2017-02-23 16:20 | PROGRESS NOTE ---
DATE: 02/23/2017 SUBJECTIVE: The patient continues with altered mental status. Apparently, she had an episode that appeared to be a seizure previously today with some postictal drowsiness witnessed by the primary. OBJECTIVE: Vital Signs: Temperature 98.7 degrees, pulse 76, respiratory rate 18, blood pressure 121/68, intake 900 mL, output 1.8 L. General: This is a elderly female, resting in bed. Her eyes are open, but she does not really interact to anything aside from painful stimuli. She again had an episode of jerking, immediately followed by and significant decrease in mental status and drowsiness. HEENT: Normocephalic, atraumatic. Her oral mucosa is dry. Neck: Supple. Trachea midline. Cardiovascular: Regular rate and rhythm. There is no murmur or gallop appreciated. Pulmonary: She has equal excursion. She is on 2 L nasal cannula. Abdomen: Soft, positive bowel sounds. : She has a Pham catheter. Extremities: No pretibial edema. Does withdraw to pain. LABORATORY DATA: WBC 3.1, hemoglobin 10.3, hematocrit 30.9, platelet count of 63,000. Sodium 143, potassium 2.7, chloride 104. CO2 21, BUN 14, creatinine 1. She had an elevated CRP of 62.4. ASSESSMENT AND PLAN: 1. Altered mental status secondary to global encephalopathy with unclear etiology. The patient to undergo a lumbar puncture today. Those results are not available yet. She is being followed by Primary and Neurology. 2. Previous acute kidney injury, acute renal failure requiring dialysis. Patient has no longer required dialysis since she has had a Pham catheter placed and after she has had an episode of dialysis. We will leave her peritoneal dialysis catheter in place unless it becomes apparent that this needs to be removed. We will continue to follow along on a daily basis if we can be of further assistance. Seen, data reviewed, discussed with Chery Rios on 02/24/16. I agree with the above assessment and plan of care. rg Dictated by AMEENA Deal for Maulik Perea MD cc: Maulik Perea MD [facility]
[2017-02-23] MEDS: POTASSIUM CHLORIDE 20 MEQ/SWI 20 MEQ/100 ML IVPB IV SCH ×2 (16:28→18:44)
[2017-02-23 16:53] LABS: MONOS 58 %; POLYS 42 %
--- NOTE | 2017-02-23 18:27 | PROGRESS NOTE ---
DATE: 02/23/2017 ADDENDUM: The patient had some more episodes of shaking. Son took a bedside cell phone video and I viewed that with him this afternoon. This shows apparent partial seizure with right hemisphere features, left arm jerking, head turned, groaning rhythmically for less than a minute with spontaneous resolution. Son reports this behavior is similar to what he had witnessed overnight. Her EEG this afternoon shows generalized slowing with nothing definitely focal and no definite epileptiform discharge. Her MRI this morning was unremarkable. She has been started on levetiracetam 1000 mg IV q.12 hours. I discussed with family the possibility that she has had seizures and, in that case, we can hope that seizure medicine will be effective and that whatever part of her trouble is due to seizure, both ictal and postictal state, will improve. I encouraged him to continue to be patient. Further plans will depend on her clinical course. Thanks for allowing me to follow Ms. Mccartney. cc: Lefty Ty III, MD
[2017-02-23] MEDS: D5 1/2 NS 1,000 ML IV SCH (20:38)
[2017-02-23] MEDS: ZOSYN 4.5 GM/NS 4.5 GM/100 ML IVPB IV SCH ×2 (20:39→23:26)
--- NOTE | 2017-02-23 22:16 | EEG REPORT ---
DATE: 02/23/2017 EEG #[id number] COMMENT: This is a digitally recorded EEG on a 71-year-old patient with baseline dementia, persistent poor responsiveness, recent behavior raising question of seizure. FINDINGS: The record is composed of polymorphic and rhythmic theta and delta activity occurring symmetrically across the frontal and central regions. There is poorly sustained 6-8 Hz. rhythm centrally and posteriorly, but no posterior dominant rhythm identified. There is some movement artifact and some response to photic stimulation but there was no definite epileptiform discharge identified. There was no spontaneous variation to correlate with drowsing and sleep. INTERPRETATION: Abnormal EEG because of generalized slowing. CORRELATION: This is indicative of a diffuse encephalopathy and is nonspecific. The absence of epileptiform discharges on a single EEG does not exclude a clinical diagnosis of seizures. cc: MD Joel Viera III, MD
[2017-02-24] MEDS: TYLENOL PO PRN ×2 (00:41→06:46)
[2017-02-24] MEDS: ZOSYN 4.5 GM/NS 4.5 GM/100 ML IVPB IV SCH ×4 (04:00→22:24)
[2017-02-24 07:45] LABS: AGAP 13; ALBUMIN 2.4 g/dL (3.5-5.0); BUN 15 mg/dL (8-22); CALCIUM 7.7 mg/dL (8.8-10.2); CHLORIDE 107 mmol/L (98-107); COSMO 286; SODIUM 143 mmol/L (136-145); TCO2 23 mmol/L (25-35)
[2017-02-24 07:46] LABS: ALBUMIN 2.6 g/dL (3.5-5.0); DIRECT BILIRUBIN 0.5 mg/dL (0.00-0.20); TOTAL BILIRUBIN 0.99 mg/dL (0.20-1.00); TOTAL PROTEIN 4.5 g/dL (6.3-8.3)
[2017-02-24 08:14] LABS: HEMATOCRIT 29.3 % (37.0-47.0); HEMOGLOBIN 9.9 g/dL (12.0-16.0); MCH 28.5 PG (27-31); MCHC 33.8 g/dL (33-37); MCV 84.4 FL (81-99); MPV 10.2 FL (7.4-10.4); RBC 3.47 XMIL (4.2-5.4)
[2017-02-24] MEDS: CYANOCOBALAMIN IM SCH (08:26)
[2017-02-24] MEDS: VITAMIN D PO SCH (08:27)
[2017-02-24] MEDS: FLOMAX PO SCH (08:27)
[2017-02-24 10:02] LABS: HIV ANTIBODY SCREEN SEE COMMENTS
[2017-02-24] MEDS: KEPPRA 1,000 MG in NS 100 ML IV SCH ×2 (10:45→23:39)
--- NOTE | 2017-02-24 12:57 | PROGRESS NOTE ---
DATE: 02/24/2017 Ms. Mccartney is much more awake and alert. She has had some more appropriate conversation with family. She seems to be tolerating levetiracetam. She has not had definite recognized clinical seizure since starting levetiracetam. I do not have any new suggestion today from a neurologic standpoint. Thanks for asking me to see Ms. Mccartney. cc: Lefty Ty III, MD
[2017-02-24] MEDS: D5 1/2 NS 1,000 ML IV SCH (13:44)
[2017-02-24] MEDS: POTASSIUM CHLORIDE 20 MEQ/SWI 20 MEQ/100 ML IVPB IV SCH ×2 (13:45→15:41)
--- NOTE | 2017-02-24 13:45 | PROGRESS NOTE ---
DATE: 02/24/2017 SUBJECTIVE: She is more alert today. She does interact with the family and follows simple commands. OBJECTIVE: Vital Signs: Blood pressure 139/6, heart rate 73, respirations 18, and afebrile. Intake 1.7 L, output 900 mL. General: An elderly woman in no distress. Skin: Warm and dry. She has some ecchymosis on her abdomen. HEENT: The pupils are equal. The conjunctivae are pink. Neck: The neck veins are not distended. Heart: Regular, without gallops. Lungs: Equal breath sounds without crackles. Abdomen: Obese and soft. Bowel sounds are present. Extremities: No edema, clubbing or cyanosis. ASSESSMENT AND PLAN: 1. Acute delirium. Improved. She has been thoroughly evaluated without a clear cause other than dementia. She was treated with low-dose Keppra last evening and is better today. We will allow Dr. Ty to help us decide what her needs are going forward. 2. Chronic kidney disease. Her creatinine is now 0.9. I discussed catheter removal with the family. I would rather wait and let her acute illness resolve before we consider putting her back through another operation. cc: Maulik Perea MD
[2017-02-24] MEDS: FOLIC ACID 1 MG in NS 50 ML IV SCH (15:32)
--- NOTE | 2017-02-24 16:15 | PROGRESS NOTE ---
DATE: 02/24/2017 Today Ms. Mccartney refers to be doing a little better. According to the and the son in the room they say she is responding a little bit more and her sensorium is improving. OBJECTIVE: Vital signs: Blood pressure is 139/63, pulse of 73, respirations 18, temperature is 98.4 degrees. General: Ms. Mccartney is a 71-year-old female. She is in bed, not in any remarkable distress. HEENT: Mucosa is pink and moist. Anicteric. Acyanotic. Neck: Supple. Chest: Good air entry bilaterally. No crepitations. No rhonchi. Cardiovascular: Regular rate and rhythm. Abdomen: Soft, nontender. Extremities: No pedal edema. TRANSACTION PROCESSOR: Patient is more alert. She is more conversational. Every now and then she will be inattentive but she will follow some basic commands. LABORATORY DATA: WBC is. 4.94, hemoglobin is 9.3, platelet count of 53,000. Chemistries reviewed and potassium is 3.0. Phosphorus is 2.0. Calcium is 7.7. Vitamin D is ridiculously low. Transaminitis is improved. ASSESSMENT: 1. Altered mental status. No focal signs (delirium likely on top of dementia). So far all investigations have been have been negative including the LP was non suggestive of anything. There was a little bit of proteins in the LP however patient's tap was slightly traumatic and this could easily explain the findings of protein as well. 2. Multivitamin and mineral deficiencies (vitamin B12, folate and vitamin D deficiency). All have been replaced. Patient is doing a little better. 3. Hypokalemia. Will continue to replace this. 4. Seizures. The patient has not had any more seizures since Keppra was started. Neurology is following. The EGD was nonconclusive. 5. Mild left hydronephrosis. 6. Urine retention on admission. This has been resolved with Pham catheter. 7. Pancytopenia likely nutritional. Platelets have gone even lower. We did consult Dr. Morrissey from Heme-Onc standpoint to evaluate the patient. So in general I think Ms. Mccartney is gradually improving. We really do not know what might have caused her acute altered mentation however I think this is delirium on top of dementia. We will give her some time to see if she would recover. Blood cultures and everything has been negative. If by tomorrow there is no growth anywhere in terms of infectious perez I would discontinue the antibiotics. We will continue aggressively to replenish all her vitamin and mineral deficiencies. Job#: cc: Joel Alexander MD
--- NOTE | 2017-02-24 16:35 | CONSULTATION ---
DATE OF CONSULTATION: 02/24/2017 REQUESTING PHYSICIAN: Dr. Alexander. REASON FOR CONSULTATION: Pancytopenia. CHIEF COMPLAINT/HISTORY OF PRESENT ILLNESS: Patient is a 71-year-old female, with change in mental status, unable to provide history. History is obtained from her family members and from the chart. I have been consulted for pancytopenia. She was in her usual state of health until a week prior to admission. Apparently she had a peritoneal dialysis catheter placed and the very next day she started to have change in mental status. At admission her hemoglobin and white count was normal. Platelets were 123. Zosyn was started on that day. During the course her platelets have trended down and are currently 53,000. White count trended down a little, however is normal today. Hemoglobin has trended down to 9.9. No evidence of bleeding. Her ESR and C-reactive protein are significantly elevated and her reticulocyte count is very poor. Zosyn has been adjusted to her creatinine clearance. PAST MEDICAL HISTORY: Chronic kidney disease, diabetes. PAST SURGICAL HISTORY: Peritoneal dialysis catheter placement, cholecystectomy , bilateral knee surgery. SOCIAL HISTORY: Patient lives with her . She quit smoking over 10 years ago. Denies alcohol or substance abuse. FAMILY HISTORY: Positive for myasthenia gravis, diabetes, and ALS. ALLERGIES: Positive for codeine, sulfa, Levaquin, SUSANNAH inhibitors, oxycodone. CURRENT MEDICATIONS: B12, vitamin D, Keppra, Zofran, Zosyn, Flomax. She received multiple vitamin and folic acid yesterday. REVIEW OF SYSTEMS: Could not be obtained. PHYSICAL EXAMINATION: General Appearance: Patient is an elderly female who is confused. Vital Signs: Temperature 98.4 degrees, pulse 73, blood pressure 139/63. HEENT: Eyes : EOMI. PERRLA. Anicteric. Mucous membranes are slightly moist. Cardiac Exam: Regular rate and rhythm. Normal S1, S2. Chest: Clear to auscultation. Abdomen: Protuberant, soft, nontender , without hepatosplenomegaly or masses. Extremities: edema mild. Neurological: Moving all 4 extremities. No focal neurological deficit. She is awake but not oriented. She appears confused. Lymph node survey: Negative. LABORATORY DATA: White count 4.9, hemoglobin 9.9, hematocrit 29, MCV 84, platelets 53,000, MPV 10. Last ANC 3.1. ALC 0.68. ESR 84. Retic count 0.2. PT 10.9. D-dimer 1.36. Fibrinogen 391. BUN 15, creatinine 0.9. Ferritin 320, percent sat less than 10. LFTs were abnormal but now normalized. C-reactive protein 62. Folate less than 2, B12 214. Hepatitis and HIV profile negative. ASSESSMENT AND PLAN: 1. Pancytopenia: It appears that she had mild thrombocytopenia on admission. However during the admission thrombocytopenia has worsened and she developed worsening anemia. For a short time, she developed leukopenia which has recovered at this time. She has significant B12 and folic acid deficiency. Replete these. Reticulocyte count is very low, suggesting a decreased production/suppression type of a process. I will continue to follow with you. 2. Change in mental status: Infectious versus metabolic. She is on Zosyn since admission. 3. Chronic kidney disease: She recently had peritoneal dialysis placed. cc: Terrell Morrissey MD MTDD
[2017-02-24] MEDS ORDERED: M.V.I.-12 10 ML, FOLIC ACID 1 MG, MAGNESIUM SULFATE 1 GM, THIAMINE 100 MG in NS 1,000 ML IV ONE (20:00)
[2017-02-24] MEDS: TYLENOL PR PRN (22:34)
[2017-02-24] MEDS: BENADRYL IV PRN (23:44)
[2017-02-25] MEDS: ZOSYN 4.5 GM/NS 4.5 GM/100 ML IVPB IV SCH ×4 (03:27→20:59)
[2017-02-25 06:40] LABS: MANUAL DIFF NEEDED? NO
[2017-02-25 06:47] LABS: EOS# 0.17 X1000 (0.0-0.7); EOS% 2.8 % (0.0-10.0); HEMATOCRIT 31.5 % (37.0-47.0); HEMOGLOBIN 10.5 g/dL (12.0-16.0); LYMPH# 1.27 X1000 (1.2-3.4); LYMPH% 20.9 % (20.5-51.1); MCH 28.2 PG (27-31); MCHC 33.3 g/dL (33-37); MCV 84.7 FL (81-99); MONO# 0.39 X1000 (0.11-0.59); MONO% 6.4 % (1.7-9.3); MPV 10.5 FL (7.4-10.4); NEUT% 69.9 % (42.2-75.2); PLT 50 X1000 (130-400); RBC 3.72 XMIL (4.2-5.4)
[2017-02-25 07:05] LABS: ALBUMIN 2.6 g/dL (3.5-5.0); CALCIUM 8.4 mg/dL (8.8-10.2); POTASSIUM 3.1 mmol/L (3.5-5.1)
[2017-02-25] MEDS: VITAMIN D PO SCH (09:38)
[2017-02-25] MEDS: D5W 1,000 ML IV SCH (09:38)
[2017-02-25] MEDS: CYANOCOBALAMIN IM SCH (09:38)
[2017-02-25] MEDS: FLOMAX PO SCH (09:38)
[2017-02-25] MEDS: KEPPRA 1,000 MG in NS 100 ML IV SCH ×2 (10:58→22:24)
[2017-02-25] MEDS: LEXAPRO PO SCH ×2 (11:46→21:06)
[2017-02-25] MEDS ORDERED: POTASSIUM PHOSPHATE 20 MMOL in NS 250 ML IV ONE (12:00)
--- NOTE | 2017-02-25 12:06 | PROGRESS NOTE ---
DATE: 02/25/2017 SUBJECTIVE: Today Ms. Mccartney continues to be the same. According to the family members, she has not been interacting as much as yesterday. OBJECTIVE: Vital signs: Blood pressure is 116/30, pulse of 99. General exam: Ms. Mccartney is a 71-year-old, female. She is in bed, looks very dazed and nonfocalizing. HEENT: Mucosa is slightly dry. Anicteric. Acyanotic. Neck: Supple. Chest: Good air entry bilateral. No crepitations. No rhonchi. Cardiovascular: Regular rate and rhythm. Abdomen: Soft. GENERAL MERCHANDISE MANAGER: Patient is alert, is nonfocalizing. Extremities: Moves extremities equally, but does not respond. LABORATORY DATA: 1. WBC is 6.07, hemoglobin is 10.5, platelet count of 50. 2. Chemistry is reviewed. Sodium is 141, potassium is 3.1, chloride is 100, bicarbonate is 23, creatinine is 1.0. ASSESSMENT: 1. Altered mental status. No focalizing signs. I think this is delirium on top of baseline cognitive impairment. The patient so far had lumbar puncture studies that have completely been negative. 2. Multivitamin and mineral deficiencies (B 12, folate and vitamin D). Will continue replacing this. 3. Hypokalemia/hypophosphatemia. Will replace that. 4. Seizures the patient has been on Keppra. Has not had any more convulsive picture. 5. Mild left hydronephrosis. Urology has evaluated the patient. 6. Urine retention on admission. Folate is in place. 7. Pancytopenia, likely nutritional. Patient has been evaluated by Hematology/ Oncology. 8. Hypernatremia. I think this is from the fluid, so will change it to D 5 for just free water needs. 9. Depression. PLAN: Today I had an extensive conversation with the 2 brothers and then the . According to them, the patient has been declining to eat for some time, and there is the concern that she probably could be having major depression, which I think it is possible taking into consideration that most of the studies for organic dysfunction have been completely negative. I will start the patient on mirtazapine, which is an antidepressive that will help with her appetite and also escitalopram. We will continue replacing her electrolytes and mineral deficiencies, and consult psych on Monday for evaluation. cc: Joel Alexander MD MTDD
[2017-02-25] MEDS: FOLIC ACID 1 MG in NS 50 ML IV SCH (13:38)
--- NOTE | 2017-02-25 16:07 | PROGRESS NOTE ---
DATE: 02/25/2017 SUBJECTIVE: She is really not any better. She does open her eyes occasionally but she is nonverbal. The family states that she was more verbal yesterday but she has also been very agitated through the night. OBJECTIVE: Vital Signs: Blood pressure 116/30, heart rate 99, respiration 18, afebrile. Intake and output: Intake 600 mL. Output 500 mL. General: No acute distress. Skin: Warm and dry. HEENT: Conjunctivae are pink. Heart: Regular. Lungs: Clear. Abdomen: Soft. Bowel sounds are present. Extremities: Have no edema, clubbing, or cyanosis. LABORATORY DATA: Sodium 146, potassium 3.1, chloride 111, bicarbonate 23, BUN 11, creatinine 1.0. IMPRESSION: Chronic kidney disease. Excellent kidney function at baseline. Unfortunately I do not have anything else to add. I will follow peripherally. cc: Maulik Perea MD
--- NOTE | 2017-02-25 18:06 | PROGRESS NOTE ---
DATE: 02/25/2017 SUBJECTIVE: Ms. Mccartney's family reports she is marginally better while listening to gospel music but otherwise there is no change in her mental condition. She is still nonresponsive on my rounds. OBJECTIVE: Vital Signs: T 98 degrees, P 99, BP 116/30. General: No acute distress. Abdomen: Nontender, nondistended. Pulmonary: Bilateral breath sounds. Genitourinary: Pham catheter in place draining straw-colored urine. PERTINENT LABS: Hematocrit is 32, creatinine is 1.0. ASSESSMENT: This is a 71-year-old female with poorly functioning right kidney who has hydronephrosis of left kidney which is likely due to urinary retention. I discussed with the family continuing Pham catheter for another couple of days and then perform a renal ultrasound with the catheter in to see if the hydronephrosis has resolved which I expect it will. There are no other urologic issues at this time. PLAN: 1. Keep Pham catheter in to gravity drainage for now. 2. We will plan on ordering a renal ultrasound on 02/27/2017 to assess for hydronephrosis status. 3. We will follow. cc: Hilton Everett MD
[2017-02-25] MEDS: REMERON PO SCH (21:05)
[2017-02-25] MEDS: MELATONIN PO SCH (21:06)
[2017-02-26] MEDS: ZOSYN 4.5 GM/NS 4.5 GM/100 ML IVPB IV SCH (04:25)
[2017-02-26] MEDS: D5W 1,000 ML IV SCH ×2 (04:25→16:49)
--- NOTE | 2017-02-26 08:48 | PROGRESS NOTE ---
DATE: 02/26/2017 SUBJECTIVE: Ms. Mccartney is reportedly doing about the same per family. PHYSICAL EXAMINATION: Vital Signs: T 98.3 degrees, P 91, BP 129/93. General: No acute distress. Abdomen: Nontender, nondistended. : Pham catheter in place draining straw-colored urine. PERTINENT LABORATORY DATA: White cell count of 6000. Creatinine is 1 from yesterday. ASSESSMENT AND PLAN: A 71-year-old female with poorly functioning right kidney and left hydronephrosis, likely due to retention. PLAN: 1. Continue Pham catheter to gravity drainage for now. 2. We will order renal ultrasound for tomorrow to evaluate hydronephrosis status. cc: Hilton Everett MD
[2017-02-26] MEDS: FLOMAX PO SCH (09:52)
[2017-02-26] MEDS: VITAMIN D PO SCH (09:52)
[2017-02-26] MEDS: LEXAPRO PO SCH (09:52)
[2017-02-26 10:10] LABS: HEMATOCRIT 33.6 % (37.0-47.0); HEMOGLOBIN 11.4 g/dL (12.0-16.0); MCH 28.4 PG (27-31); MCHC 33.9 g/dL (33-37); MCV 83.8 FL (81-99); MPV 10.6 FL (7.4-10.4); RBC 4.01 XMIL (4.2-5.4)
[2017-02-26] MEDS: KEPPRA 1,000 MG in NS 100 ML IV SCH ×2 (10:37→22:26)
[2017-02-26 10:59] LABS: POTASSIUM 3.3 mmol/L (3.5-5.1)
--- NOTE | 2017-02-26 11:47 | PROGRESS NOTE ---
DATE: 02/26/2017 CHIEF COMPLAINT/HISTORY OF PRESENT ILLNESS: Family reports that the patient has not been waking up. Continued mental status changes. The only difference over the last day is that she is not pulling her clothes off. OBJECTIVE: Vital signs: Afebrile, pulse 101, blood pressure 145/87. HEENT: Mucous membranes appear moist. Cardiac Exam: Regular rate and rhythm. Normal S1, S2. Chest: Clear to auscultation. Abdomen: Protuberant. Mild tenderness in the right lower quadrant. Extremities: Without edema. She is moving all 4 extremities. LABS: White count 8.7, hemoglobin 11.4, platelets 53,000, MPV 10.6. HIT antibody is negative. ASSESSMENT AND PLAN: 1. Pancytopenia: The patient's white count has normalized. Hemoglobin is trending up. Platelet counts are stable at this time. Continue B12 and folic acid supplementation. HIT antibody is negative. Anticipate this coming week, her platelet should improve. 2. Change in mental status: Infectious versus metabolic. She continues on antibiotics. 3. Chronic kidney disease: Status post peritoneal dialysis placement. 4. Deep vein thrombosis prophylaxis: Place on SCDs. cc: Terrell Morrissey MD
[2017-02-26] MEDS: POTASSIUM CHLORIDE 20 MEQ/SWI 20 MEQ/100 ML IVPB IV SCH ×2 (13:41→15:47)
[2017-02-26] MEDS: FOLIC ACID 1 MG in NS 50 ML IV SCH (13:41)
--- NOTE | 2017-02-26 13:41 | PROGRESS NOTE ---
DATE: 02/26/2017 SUBJECTIVE: Today Ms. Mccartney continues to be stable. She is actually not very communicative today. She slept most of the day yesterday and this morning has also been sleeping. From the family members, she has actually not been taking her p.o. medications and not very cooperative either. OBJECTIVE: Vital signs: Blood pressure is 145/87, pulse of 101, respirations 20, temperature 97.1 degrees. Patient is saturating 100% on room air. General: Ms. Mccartney is a 71-year-old female. She is in bed, not seemingly distressed. HEENT: Mucosa is pink and moist. Anicteric. Acyanotic. Neck: Supple. Chest: Good air entry bilaterally. No crepitations. No rhonchi. Cardiovascular: Regular rate and rhythm. Abdomen: Soft, nontender. No hepatosplenomegaly. MANAGER REHAB: Patient is sleepy, easily arousable. Not focalizing and very inattentive. Moves all extremities. LABORATORY DATA: WBC is 8.73, hemoglobin is 11.5, platelet count is 53,000, slightly improved from yesterday. Chemistry: Sodium is 141, potassium is 3.3, chloride is 105, bicarb is 21, creatinine is 1.1. ASSESSMENT: 1. Altered mental status. No focalizing signs. We think this is delirium on top of baseline cognitive impairment. So far all studies have been negative. We think there is an underlying severe depression. We will consult psych to evaluate the patient. 2. Multivitamin and mineral deficiencies. We will continue replacing this. 3. Hypokalemia. We will replace that. 4. Seizures. The patient is on Keppra and there has not been any more clinical convulsive episodes. 5. Mild left hydronephrosis. Urology is on board. Will do a repeat ultrasound tomorrow to follow up on that. 6. Pancytopenia, likely nutritional. Continue with adequate nutritional support. 7. Hypernatremia. The patient is currently on D5 and this has been corrected. 8. Severe depression. I think the patient probably has an underlying psychiatric issue. We will therefore consult psychiatry to evaluate the patient. We have her now on mirtazapine and escitalopram. However, she is not taking any oral medications. I am not quite sure if she would benefit from electroconvulsive therapy. cc: Joel Alexander MD MTDD
[2017-02-26] MEDS: REMERON PO SCH (22:27)
[2017-02-27] MEDS: MELATONIN PO SCH ×2 (01:42→22:08)
[2017-02-27] MEDS: REMERON PO SCH ×2 (01:43→22:07)
[2017-02-27 06:33] LABS: MANUAL DIFF NEEDED? NO
[2017-02-27] MEDS: D5W 1,000 ML IV SCH (06:33)
[2017-02-27 06:56] LABS: BASO% 0.1 % (0.0-0.8); EOS# 0.15 X1000 (0.0-0.7); EOS% 1.8 % (0.0-10.0); HEMATOCRIT 32.7 % (37.0-47.0); HEMOGLOBIN 10.9 g/dL (12.0-16.0); IMM GRAN# 0.08 X1000 (0.0-0.04); LYMPH% 19.6 % (20.5-51.1); MCH 28.1 PG (27-31); MCHC 33.3 g/dL (33-37); MCV 84.3 FL (81-99); MONO# 0.75 X1000 (0.11-0.59); MONO% 9.2 % (1.7-9.3); MPV 12.1 FL (7.4-10.4); NEUT% 68.3 % (42.2-75.2); PLT 66 X1000 (130-400); RBC 3.88 XMIL (4.2-5.4)
[2017-02-27 07:08] LABS: ALBUMIN 2.4 g/dL (3.5-5.0); CALCIUM 9.1 mg/dL (8.8-10.2); POTASSIUM 3.4 mmol/L (3.5-5.1); TOTAL BILIRUBIN 0.47 mg/dL (0.20-1.00); TOTAL PROTEIN 4.9 g/dL (6.3-8.3)
[2017-02-27] MEDS: VITAMIN D PO SCH (10:00)
[2017-02-27] MEDS: FLOMAX PO SCH (10:00)
[2017-02-27] MEDS: LEXAPRO PO SCH (10:00)
[2017-02-27] MEDS: POTASSIUM CHLORIDE 20 MEQ/SWI 20 MEQ/100 ML IVPB IV SCH ×2 (10:13→12:12)
[2017-02-27] MEDS: KEPPRA 1,000 MG in NS 100 ML IV SCH ×2 (14:08→22:07)
--- NOTE | 2017-02-27 14:42 | Diag Imaging Result Document ---
PROCEDURE NAME: US RENAL 2 (RETROPER) COMPLETE - 02/27/2017 BILATERAL RENAL ULTRASOUND: COMPARISON: 02/20/2017. FINDINGS: Right kidney measures 8.4 x 3.1 x 3.7 cm in size. There is apparent mild cortical scarring or thinning on the right. The left kidney measures 11.7 x 4.3 x 4.9 cm in size. There is no hydronephrosis identified. The mild left hydronephrosis which was seen on the previous exam is not seen on this exam. There is no renal mass or renal stone identified. The urinary bladder is decompressed by a Pham catheter, but shows no obvious lesion. IMPRESSION: Mild cortical scarring or thinning on the right. No other visible renal abnormality. The mild left hydronephrosis which was seen on the previous exam appears to have resolved.
--- NOTE | 2017-02-27 15:33 | PROGRESS NOTE ---
DATE: 02/27/2017 SUBJECTIVE: Today, Ms. Mccartney continues to be the same. Actually, she is less responsive than yesterday. I think she seems to understand what is going on. She just does not feel like responding. She would move very actively to painful to painful stimulation. OBJECTIVE: Vital signs: Blood pressure is 130/61, pulse 99, respirations 18, temperature 97.9 degrees. General: Ms. Mccartney is a 71-year-old female. She is in bed, not seemingly distressed. HEENT: Mucosa is slightly dry. Anicteric. Acyanotic. Neck: Supple. Chest: Clear. Cardiovascular: Regular rate and rhythm. No murmurs, no rubs. No gallops. Abdomen: Soft. Extremities: No pedal edema. Central Nervous System: Patient has the eyes closed. She will open it to painful stimulation. She does not focalize. She would try to shy her eyes away from us. She would move very actively to painful stimulation in both lower extremities. LABORATORY DATA: WBC is 8.16, hemoglobin is 10.9, platelet count is 66,000, which is coming up. Sodium is 139, potassium is 3.4, chloride is 105, bicarbonate is 19. Creatinine is 1.1. ASSESSMENT AND PLAN: 1. Altered mental status. No focalizing sign. So far, MRI and all other workup has been completely negative. I think patient does have some underlying severe depression. We consulted [facility]. 2. Multivitamin and mineral deficiencies. (Vitamin B12, vitamin D, and folate all deficient.) Will continue to replace this accordingly. 3. Hypokalemia. We will replace this. 4. Suspected seizures. The patient is on Keppra. There have not been any more rhythmic convulsive movements since the patient was started on Keppra. 5. Mild left hydronephrosis. An ultrasound has been done today. We are still pending the official report. However, the patient does not have any white count, so we did discontinue the antibiotics. 6. Pancytopenia, likely nutritional. This is gradually improving. 7. Suspected severe depression. I actually spoke with the interviewer from [facility] today, and they plan to come and see her and give us some recommendations. I think at this point, Ms. Mccartney is actually not wanting to respond. She will open her eyes when you stroke her feet bottoms for Babinski, and then she would immediately close her eyes and go back to sleep. I think she is severely depressed, but she does not want to take the p.o. medications either. We will try and see if we can get an NG tube down for her medications, and also for nutritional purposes, since she has not had anything eating since she got admitted. If we are unsuccessful to put in an NG tube, then we might have to start her on some peripheral nutrition. cc: Joel Alexander MD
[2017-02-27] MEDS: FOLIC ACID 1 MG in NS 50 ML IV SCH (15:45)
--- NOTE | 2017-02-27 17:41 | Diag Imaging Result Document ---
PROCEDURE NAME: CHEST/ABD TUBE PLACEMENT - 02/27/2017 PORTABLE EXAM FOR FEEDING TUBE PLACEMENT: TIME: 1645 hours FINDINGS: The tip of the feeding tube is at the expected location of the mid stomach. IMPRESSION: Tip of feeding tube at mid stomach.
--- NOTE | 2017-02-27 18:37 | PROGRESS NOTE ---
DATE: 02/27/2017 SUBJECTIVE: Per family, Ms. Mccartney's mental status is unchanged. She does not appear to be in obvious distress. OBJECTIVE: Vital Signs: Temperature 97.9 degrees, pulse 99, blood pressure 130/61, she had recorded urine output of 750 mL. General: No acute distress. Abdomen: Nontender, nondistended. : Pham draining straw-colored urine. PERTINENT LABORATORY DATA: White cell count of 8000. Creatinine is 1.1 which is stable. PERTINENT IMAGES: Renal ultrasound obtained today revealed resolution of her left hydronephrosis. ASSESSMENT: A 71-year-old female with urinary retention, poorly functioning right kidney, left hydronephrosis due to retention, which has now improved after decompressing the bladder. I have discussed with the patient's family that she would benefit from Pham catheter while her mental status is such. I have discussed with them the slightly increased risk of urinary infections with indwelling Pham catheter as well as a decreased risk of kidney deterioration if she stayed in urinary retention. PLAN: 1. Keep Pham catheter in for now. 2. Catheter may be removed per family wishes or primary team as there is a better disposition for the patient. 3. Please call if questions. cc: Hilton Everett MD
--- NOTE | 2017-02-27 18:57 | PROGRESS NOTE ---
DATE: 02/27/2017 SUBJECTIVE: Ms. Mccartney was transiently much more alert and attentive following starting levetiracetam 3 days ago. After that, she seemed more inattentive at times. now reports she has had some periods of agitation. She was very alert, according to , when NG was placed. She has had some tremulousness, but has not witnessed a elier seizure. I do not have any new suggestion today. We might consider increasing the levetiracetam dose if she does not improve. That decision will be easier if she has elier seizure. Also, we might consider repeating her electroencephalogram later and we might consider prolonged electroencephalogram. Thanks for allowing me to follow Ms. Mccartney. cc: Lefty Ty III, MD
[2017-02-27] MEDS: TYLENOL PR PRN (22:07)
[2017-02-27] MEDS: BENADRYL IV PRN (22:07)
[2017-02-27] MEDS ORDERED: STERILE WATER INJ. INJ PRN (22:44)
[2017-02-27] MEDS: GEODON IM PRN (23:11)
[2017-02-28] MEDS: ATIVAN IV PRN ×2 (01:10→21:25)
[2017-02-28 06:21] LABS: MANUAL DIFF NEEDED? NO
[2017-02-28 06:36] LABS: BASO% 0.1 % (0.0-0.8); EOS# 0.05 X1000 (0.0-0.7); EOS% 0.7 % (0.0-10.0); HEMATOCRIT 29.3 % (37.0-47.0); HEMOGLOBIN 9.7 g/dL (12.0-16.0); IMM GRAN# 0.09 X1000 (0.0-0.04); IMM GRAN% 1.2 % (0.0-0.5); LYMPH# 1.35 X1000 (1.2-3.4); LYMPH% 17.6 % (20.5-51.1); MCH 28.1 PG (27-31); MCHC 33.1 g/dL (33-37); MCV 84.9 FL (81-99); MONO# 0.77 X1000 (0.11-0.59); MONO% 10.1 % (1.7-9.3); MPV 11.8 FL (7.4-10.4); NEUT% 70.3 % (42.2-75.2); PLT 83 X1000 (130-400); RBC 3.45 XMIL (4.2-5.4)
[2017-02-28 06:44] LABS: MAGNESIUM 1.3 mg/dL (1.5-2.7); POTASSIUM 3.3 mmol/L (3.5-5.1)
--- NOTE | 2017-02-28 08:26 | Diag Imaging Result Document ---
PROCEDURE NAME: CHEST/ABD TUBE PLACEMENT - 02/28/2017 PORTABLE CHEST AND ABDOMEN: COMPARISON: 02/27/2017. FINDINGS: The nasogastric tube has been pulled back. The tip now overlies the mid chest. It does not extend into the stomach. The lungs remain clear. IMPRESSION: Nasogastric tube is malpositioned. The result of this was called to the patient's nurse at 7:42 a.m..
[2017-02-28] MEDS: FLOMAX PO SCH (11:20)
[2017-02-28] MEDS: VITAMIN D PO SCH (11:21)
[2017-02-28] MEDS: LEXAPRO PO SCH (11:21)
[2017-02-28] MEDS: KEPPRA 1,000 MG in NS 100 ML IV SCH ×2 (11:44→23:14)
[2017-02-28] MEDS: CLINIMIX E 4.25%-5% SOLUTION 1,000 ML IV SCH ×2 (11:58→21:20)
[2017-02-28] MEDS: GEODON IM PRN (12:37)
--- NOTE | 2017-02-28 14:56 | PROGRESS NOTE ---
DATE: 02/28/2017 Ms. Mccartney is restless right now, restrained at the wrists, moving her arms and legs, turning her head left and right, grumbling but not communicating otherwise. When I put my hand on her shoulder and held her hand with my other hand, she was still and seemed to pay attention, but she did not follow commands or communicate. IMPRESSION: 1. Baseline cognitive impairment, well compensated before recent illness. This predisposes her to relatively more prominent and more protracted toxic or metabolic encephalopathy. 2. Behavior last week consistent with seizure, improved, possibly stopped after adding levetiracetam. 3. Recent dehydration and renal failure. Her chemistry profile looks remarkably good now. Residual metabolic encephalopathy may still be present, but I would have expected better recovery if there is no other problem. I think it would be reasonable to consider giving her a cholinesterase inhibitor , but that is not urgent and any benefit will likely not occur right away. Next thought would be to add low-dose neuroleptic medicine to see if we can help keep her more calm. I believe that [facility] has been consulted and I will defer neuroleptic decision. Regarding possible seizure, I would continue levetiracetam but consider switching to a different drug if she seems to be having any adverse personality effect with levetiracetam. If she has clinical evidence of seizure , we can consider switching to a different seizure medicine. Thanks for allowing me to follow Ms. Mccartney. cc: MD SAWYER Viera III
[2017-02-28] MEDS: LIPOSYN 20% 250 ML IV SCH (15:26)
[2017-02-28] MEDS: FOLIC ACID 1 MG in NS 50 ML IV SCH (15:27)
[2017-02-28] MEDS ORDERED: HALDOL IV PRN (16:14)
[2017-02-28] MEDS ORDERED: MAGNESIUM SULFATE 2 GM/S.W.I. 2 GM/50 ML IVPB IV ONE (16:30)
--- NOTE | 2017-02-28 16:39 | PROGRESS NOTE ---
DATE: 02/28/2017 Today Ms. Mccartney continues to be pretty much altered. I understand she had a lot of agitation yesterday. Continues to kind of close her eyes very tight and does not want to interact. OBJECTIVE: Vital signs: Blood pressure is 147/79, pulse is 113, respiration 18, temperature is 97.9 degrees. General: Ms. Mccartney is a 71-year-old female. She is in bed. She did not seem to be in any distress. HEENT: Mucosa is slightly dry. Anicteric. Acyanotic. Neck: Supple. Chest: Good air entry bilaterally. No crepitations. Cardiovascular: Regular rate and rhythm. Abdomen: Soft. FARMER CASH GRAIN: Patient continues to have the eyes closed. She will move all her extremities very actively but will not open her eyes. She would do it very intermittently and just shy away. LABORATORY DATA: WBC 7.66, hemoglobin is 9.7, platelet count is 83,000, which is progressively improving. Chemistry is reviewed, completely unremarkable except for potassium of 3.3, magnesium is 1.3. Will replace that. ASSESSMENT: 1. Altered mental status. No focalizing sign. MRI, LP and all other studies have been unremarkable. Patient does have an underlying cognitive decline. 2. Multivitamin and mineral deficiency (vitamin B12, vitamin D and folate deficient). 3. Hypokalemia and hypomagnesemia. Will replace. 4. Seizures. Patient is on Keppra. This seems to have improved. 5. Mild left hydronephrosis on presentation. This was evaluated by Urology. A followup ultrasound yesterday has actually shown that this is resolved. 6. Pancytopenia likely due to nutritional deficiencies. 7. Suspected severe depression. Patient has been evaluated by [facility] and I understand that they do not plan to admit her there because the patient has so many comorbidities and they would prefer the patient goes to a different institution where she would have that complexity of care taken care of. We will be making arrangement to see if we can get her to a different place.. 8. Nutritional needs. The patient removed her NG tube. We will therefore have to for now do a peripheral type of nutrition with Clinimix and lipid infusion. cc: Joel Alexander MD
[2017-02-28] MEDS: D5W 1,000 ML IV SCH ×3 (17:05→23:14)
[2017-02-28] MEDS: POTASSIUM CHLORIDE 20 MEQ/SWI 20 MEQ/100 ML IVPB IV SCH ×2 (21:20→23:14)
[2017-02-28] MEDS: REMERON PO SCH (21:21)
[2017-02-28] MEDS: MELATONIN PO SCH (21:23)
[2017-02-28] MEDS: BENADRYL IV PRN (21:25)
[2017-03-01] MEDS: CLINIMIX E 4.25%-5% SOLUTION 1,000 ML IV SCH ×2 (06:25→17:26)
[2017-03-01 07:26] LABS: MANUAL DIFF NEEDED? NO
[2017-03-01 08:06] LABS: ALBUMIN 2.4 g/dL (3.5-5.0); CALCIUM 9.1 mg/dL (8.8-10.2); MAGNESIUM 1.9 mg/dL (1.5-2.7); POTASSIUM 3.9 mmol/L (3.5-5.1); TOTAL BILIRUBIN 0.4 mg/dL (0.20-1.00); TOTAL PROTEIN 4.7 g/dL (6.3-8.3)
--- NOTE | 2017-03-01 08:32 | PROGRESS NOTE ---
DATE: 03/01/2017 Ms. Mccartney is more animated this morning, still restless, moving all limbs, turning her head [id number]. When I called her name, she paused, regarded me, spoke to me with some dysarthric speech, but I could understand some of her words. She did not follow commands. I do not have any new thoughts or new suggestions. I would consider adding low- dose neuroleptic medicine but, again, will defer that to [facility] team. She does seem a little bit less agitated, a little bit more attentive, maybe just a little bit improved overall today. Thanks for allowing me to follow Ms. Mccartney. cc: MD SAWYER Viera III
[2017-03-01] MEDS: LEXAPRO PO SCH (08:36)
[2017-03-01] MEDS: FLOMAX PO SCH (08:36)
[2017-03-01] MEDS: VITAMIN D PO SCH (08:37)
[2017-03-01 08:52] LABS: BASO% 0.1 % (0.0-0.8); EOS% 1.5 % (0.0-10.0); HEMOGLOBIN 9.9 g/dL (12.0-16.0); IMM GRAN# 0.05 X1000 (0.0-0.04); IMM GRAN% 0.7 % (0.0-0.5); LYMPH# 1.04 X1000 (1.2-3.4); LYMPH% 15.2 % (20.5-51.1); MCH 28.3 PG (27-31); MCV 85.7 FL (81-99); MONO# 0.68 X1000 (0.11-0.59); MONO% 9.9 % (1.7-9.3); MPV 11.1 FL (7.4-10.4); NEUT% 72.6 % (42.2-75.2); PLT 144 X1000 (130-400)
[2017-03-01] MEDS: LIPOSYN 20% 250 ML IV SCH (14:28)
[2017-03-01] MEDS: KEPPRA 1,000 MG in NS 100 ML IV SCH ×2 (14:31→22:01)
[2017-03-01] MEDS: HALDOL IV PRN ×2 (15:09→22:08)
[2017-03-01] MEDS: FOLIC ACID 1 MG in NS 50 ML IV SCH (16:03)
[2017-03-01] MEDS: GEODON IM PRN (16:08)
--- NOTE | 2017-03-01 16:20 | PROGRESS NOTE ---
DATE: 03/01/2017 SUBJECTIVE: Today Ms. Mccartney to me has really not changed in any way. She continues to be completely altered. Every now and then she will be slightly boisterous and fidgety, but she is completely nonfocalizing and she is not responding to any verbal commands. OBJECTIVE: Vital signs: Blood pressure is 141/74, pulse of 94, respirations 18 , temperature 97.6 degrees. General: Ms. Mccartney is a 71-year-old female. She is in bed. She is not in any distress. HEENT: Mucosa is pink and moist. Anicteric. Acyanotic. Neck: Supple. Chest: Good air entry bilateral. No crepitations. Cardiovascular: Regular rate and rhythm. Abdomen: Soft, nontender. Bowel sounds are present. Extremities: No pedal edema. MACHINE INKER : Patient is awake, but has the eyes closed. Will open when you stimulate her. She will continue moving all her extremities. She will not focalize on you and she will not respond to anything that you say. LABORATORY DATA: WBC 6.86, hemoglobin is 9.9, platelet count of 144. Sodium is 143, potassium is 3.9, chloride is 108, bicarbonate is 20, creatinine is 1.0. ASSESSMENT: 1. Altered mental status. No focalizing sign. It seems like an acute delirium. So far, MRI, lumbar puncture and all electrolyte cultures have all been negative. 2. Multivitamin and mineral deficiencies (B 12, vitamin D and folate deficiency) . We will continue giving intravenous folate. The patient had 3 injections back-to- back of vitamin B 12, so I think she is Pham repleted. There is no way we will be able to replace her vitamin D since she is not taking anything by mouth. 3. Hypokalemia, hypomagnesemia. This has been repleted. 4. Seizures. The patient is currently on Keppra and has not had any more seizures. 5. Pancytopenia likely due to nutritional deficiencies. This has resolved. 6. Suspected severe depression. [facility] actually saw the patient through their screeners, and the recommendation of the staff with Dr. Michele is that patient has a lot of issues going on and they will not be able to take her in [facility]. I tried reaching out to [place] early on today. Dr. Jacobs is apparently the psychiatrist commercial litigation paralegal , and he will not even allow that I talked to him. The reason is they do not do inpatient to inpatient; they will rather have the patient in the emergency room and then have them consulted. I reached out to [facility]. The inpatient female psych is on diversion. We will continue looking for places for inpatient psych to admit the patient. 7. Nutritional needs: We will continue using the PICC line for Clinimix with lipid infusion. PLAN: So, in general, Ms. Mccartney continues to be altered. To me, she has not shown any remarkable improvement after 10 days in the hospital. She continues to be boisterous, nonresponsive to verbal commands. Occasionally I understand from the family that she would say 1 or 2 things, but then she just goes back like the memory wax and wane, very typical with delirium. We would continue looking for psych inpatient institution that will be able to evaluate her and cater for her psych needs. Until then we will continue following recommendations from neurology on board. cc: Joel Alexander MD MTDD
[2017-03-01] MEDS: M.V.I.-12 10 ML, FOLIC ACID 1 MG, MAGNESIUM SULFATE 1 GM, THIAMINE 100 MG in NS 1,000 ML IV SCH (17:05)
[2017-03-01] MEDS: MELATONIN PO SCH (22:02)
[2017-03-01] MEDS: REMERON PO SCH (22:02)
[2017-03-01] MEDS: ATIVAN IV PRN (22:48)
[2017-03-02] MEDS: GEODON IM PRN (01:41)
[2017-03-02] MEDS: CLINIMIX E 4.25%-5% SOLUTION 1,000 ML IV SCH ×3 (01:42→13:44)
[2017-03-02 07:23] LABS: MANUAL DIFF NEEDED? NO
[2017-03-02 07:36] LABS: BASO% 0.1 % (0.0-0.8); EOS# 0.09 X1000 (0.0-0.7); EOS% 1.3 % (0.0-10.0); HEMATOCRIT 26.2 % (37.0-47.0); HEMOGLOBIN 8.7 g/dL (12.0-16.0); IMM GRAN# 0.03 X1000 (0.0-0.04); IMM GRAN% 0.4 % (0.0-0.5); LYMPH# 0.71 X1000 (1.2-3.4); LYMPH% 10.5 % (20.5-51.1); MCH 28.6 PG (27-31); MCHC 33.2 g/dL (33-37); MCV 86.2 FL (81-99); MONO# 0.55 X1000 (0.11-0.59); MONO% 8.1 % (1.7-9.3); NEUT% 79.6 % (42.2-75.2); PLT 180 X1000 (130-400); RBC 3.04 XMIL (4.2-5.4)
[2017-03-02] MEDS: HALDOL IV PRN ×2 (07:39→21:01)
[2017-03-02 07:59] LABS: AGAP 12; BUN 26 mg/dL (8-22); CALCIUM 8.7 mg/dL (8.8-10.2); CHLORIDE 109 mmol/L (98-107); COSMO 293; POTASSIUM 4.2 mmol/L (3.5-5.1); SODIUM 143 mmol/L (136-145); TCO2 22 mmol/L (25-35)
--- NOTE | 2017-03-02 08:08 | PROGRESS NOTE ---
DATE: 03/02/2017 Ms. Mccartney continues restless, spontaneously moving all limbs, pulling at her wrist restraints, turning head left and right, grumbling and moaning but not communicating otherwise. When I held her hand and rubbed her forehead, she was quiet, still, calm. She has had some low doses of lorazepam and ziprasidone, and has just now received haloperidol. This is in attempt to control her restless agitation. I discussed at length with family concerns for sedation and possibility that there will not be satisfactory medication for this condition. They have been very patient. I do not have any new suggestion today. cc: Lefty Ty III, MD
[2017-03-02] MEDS: LEXAPRO PO SCH (11:41)
[2017-03-02] MEDS: VITAMIN D PO SCH (11:41)
[2017-03-02] MEDS: KEPPRA 1,000 MG in NS 100 ML IV SCH (12:49)
[2017-03-02] MEDS: LIPOSYN 20% 250 ML IV SCH (12:49)
[2017-03-02] MEDS: FOLIC ACID 1 MG in NS 50 ML IV SCH (13:45)
--- NOTE | 2017-03-02 16:03 | PROGRESS NOTE ---
DATE: 03/02/2017 SUBJECTIVE: Today, Ms. Mccartney continues to be the same. I did not actually see any improvement. She continues to be nonverbal and completely agitated and noninteractive. OBJECTIVE: Vital signs: Blood pressure is 163/94, pulse of 115, respirations 16, temperature 97.6 degrees. General: Ms. Mccartney is a 71-year-old, female. She is in bed. She does not seem to be in any distress. HEENT: Mucosa is pink and slightly dry. Anicteric. Acyanotic. Neck: Supple. Chest: Good air entry bilateral. No crepitations. Cardiovascular: Regular rate and rhythm. Abdomen: Soft. Extremities: No pedal edema. Central Nervous System: Patient is awake. She will clench her eyes very closely together so I open it. She is very agitated moving side to side and nonverbal. LABORATORY DATA: WBC is 6.79, hemoglobin is 8.7, platelet count is 180,000. Resolved. Chemistry completely normal. ASSESSMENT: 1. Altered mental status with no focalizing sign. So far investigations have been unremarkable. 2. Multivitamin and mineral deficiencies (B12, vitamin D and folate), we will continue replacing this. 3. Seizures. This was witnessed in the hospital. Patient is on Keppra. There have not been any more seizures since. 4. Pancytopenia likely due to nutritional deficiencies. This has improved remarkably. 5. Suspected severe depression. PLAN: This morning I spoke extensively with her and son on the phone about Ms. Mccartney and the fact that we do not seem to be getting anywhere. They did give me a number to call for possible transfer and that number was [phone]. This was a senior treatment program in [place]. I did call. They were happy to review Ms. Mccartney, however, they did ask if Ms. Mccartney had Power of Physician Allergist Immunologist. If not, then she will not be able to cross state lines because this is considered involuntary admission. I went to discuss his with the day and apparently they do not have any Power of Physician Allergist Immunologist so we cannot use that facility. I also got a number to call, [facility] at [phone], which I did call but this unit will only take people less than 65 years old. They do not cater to senior citizens. I was given a number for [facility] at [phone]. I did call and the nurse brazer controlled atmospheric furnace did ask me to call Ms. Zamora. I tried a number they gave me for Ms. Zamora several times, , and nobody would pick of the phone, it goes straight to a fax line. As it stands we still do not have any clear disposition for Ms. Mccartney. We are going to titrate up her Haldol to see if we can get her a little bit more calm so she does not hurt herself in the restraints. cc: Joel Alexander MD MTDD
[2017-03-02] MEDS: M.V.I.-12 10 ML, FOLIC ACID 1 MG, MAGNESIUM SULFATE 1 GM, THIAMINE 100 MG in NS 1,000 ML IV SCH (17:00)
[2017-03-02] MEDS: REMERON PO SCH (20:59)
[2017-03-02] MEDS: MELATONIN PO SCH (20:59)
[2017-03-03] MEDS: KEPPRA 1,000 MG in NS 100 ML IV SCH ×3 (00:20→22:17)
[2017-03-03] MEDS: CLINIMIX E 4.25%-5% SOLUTION 1,000 ML IV SCH ×3 (00:20→22:16)
[2017-03-03] MEDS: ATIVAN IV PRN ×3 (01:40→22:24)
[2017-03-03] MEDS: GEODON IM PRN (03:49)
[2017-03-03 06:29] LABS: MANUAL DIFF NEEDED? NO
[2017-03-03 06:43] LABS: BASO% 0.1 % (0.0-0.8); EOS# 0.07 X1000 (0.0-0.7); HEMATOCRIT 26.3 % (37.0-47.0); HEMOGLOBIN 8.5 g/dL (12.0-16.0); IMM GRAN# 0.04 X1000 (0.0-0.04); IMM GRAN% 0.6 % (0.0-0.5); LYMPH# 0.65 X1000 (1.2-3.4); LYMPH% 9.5 % (20.5-51.1); MCH 27.9 PG (27-31); MCHC 32.3 g/dL (33-37); MCV 86.2 FL (81-99); MONO% 10.2 % (1.7-9.3); MPV 10.5 FL (7.4-10.4); NEUT% 78.6 % (42.2-75.2); PLT 220 X1000 (130-400); RBC 3.05 XMIL (4.2-5.4)
[2017-03-03 07:02] LABS: AGAP 13; ALBUMIN 2.5 g/dL (3.5-5.0); ALKALINE PHOSPHATASE 91 U/L (32-104); BUN 28 mg/dL (8-22); CALCIUM 8.9 mg/dL (8.8-10.2); CHLORIDE 109 mmol/L (98-107); COSMO 292; GOT 13 U/L (10-30); GPT 24 U/L (10-36); POTASSIUM 4.1 mmol/L (3.5-5.1); SODIUM 143 mmol/L (136-145); TCO2 21 mmol/L (25-35); TOTAL BILIRUBIN 0.43 mg/dL (0.20-1.00); TOTAL PROTEIN 4.8 g/dL (6.3-8.3)
--- NOTE | 2017-03-03 09:48 | PROGRESS NOTE ---
DATE: 03/03/2017 Ms. Mccartney is squirming, moving all limbs, moaning and groaning but not communicating. She did not follow simple commands. She did cease her movement and groaning briefly when stimulated tactilely. I do not see anything new neurologically. I had lengthy discussion with family at the bedside and then in the hallway regarding uncertain diagnosis. There is clear history of forgetfulness going on for at least a year , more likely a few years. She has a past history of major depression and that may have been more prominent in recent months. We discussed the concept of cerebral reserve and the likelihood that her baseline cognitive impairment predisposes her to more protracted and more significant encephalopathy with any toxic or metabolic disturbance. She has seemed to get temporary benefit with haloperidol, recent 5 mg dose. We discussed the possibility that this dose, if repeated, might eventually be associated with excessive sedation and we will be careful with that. Again, we might consider cholinesterase inhibitor trial electively. I reviewed the results of workup thus far with family. I do not think we need to repeat any of her neurologic workup. We might consider repeating EEG and brain imaging later. We might consider empirically increasing her levetiracetam dose, but current behavior does not look like seizure and is certainly not what we had seen on the cell phone video earlier this admission. That more typical seizure behavior stopped immediately after levetiracetam was added. No new suggestions today. Thanks for allowing me to follow Ms. Mccartney. cc: MD SAWYER Viera III
[2017-03-03] MEDS: LEXAPRO PO SCH (10:47)
[2017-03-03] MEDS: VITAMIN D PO SCH (10:48)
[2017-03-03] MEDS: LIPOSYN 20% 250 ML IV SCH (12:00)
[2017-03-03] MEDS: FOLIC ACID 1 MG in NS 50 ML IV SCH (14:15)
[2017-03-03] MEDS: M.V.I.-12 10 ML, FOLIC ACID 1 MG, MAGNESIUM SULFATE 1 GM, THIAMINE 100 MG in NS 1,000 ML IV SCH (16:49)
--- NOTE | 2017-03-03 17:36 | PROGRESS NOTE ---
DATE: 03/03/2017 SUBJECTIVE: Today Ms. Mccartney continues to be the same. I did not really see any remarkable improvement. OBJECTIVE: Vital signs: Blood pressure is 139/98, pulse of 111, respiration is 16, temperature is 98.2 degrees. General: Ms. Mccartney 71-year-old female. She is in bed. HEENT: Mucosa is slightly dry. Anicteric. Acyanotic. Cardiovascular: Regular rate and rhythm. Abdomen: Soft. Extremities: No pedal edema. MATCHER OFFBEARER: Patient is alert, is boisterous, is inattentive, agitated. She is in 2-point restraint. She will not follow any commands. LABORATORY DATA: WBC 6.83, hemoglobin is 8.5, platelet count of 222,000. Chemistries reviewed. Completely unremarkable. ASSESSMENT: 1. Altered sensorium with no focalizing signs. Investigations so far including MRI, EEG, blood cultures all have been completely negative. 2. Multivitamin and mineral deficiencies (vitamin B12, vitamin D and folate). Will continue replacing this. 3. Seizures. This was witnessed in hospital. Patient is on Keppra. Has not had any more seizures at least no convulsive seizure. 4. Pancytopenia on presentation likely due to nutritional deficiency. This is improved. 5. Suspected severe depression with agitation and behavioral disturbances. We have been trying every day to get the patient to inpatient psych however every effort has been futile. So this morning I spoke again extensively with the son and the who were at the bedside with the patient. They gave me a number to reach out to Dr. Estrella who is a psychiatrist in [place]. I did call him. We spoke at length. At the end of the conversation he said from his evaluation Ms. Mccartney was not qualify to their inpatient services. They do only voluntary admission and it sounds like Ms. Mccartney would be an involuntary admission. Also he did mention that there is no bed available at this point. I called very early this morning to [facility] again to see of we will be able to get the patient to get admitted on hospitalist service so that psych can be consulted. However the launch operator told me point blank that the hospitalist would not take the patient because is psych. I insisted I wanted to talk to the hospitalist crew person, about 20 minutes later the operated called me back and told me that Dr. Sher who is crew person will not take the patient and will not talk to me because the patient has nothing medical they could offer and all that the patient needs is psych and they will not take the patient for psych. I did reach out again to [facility] at [phone], spoke with the nurse crew person, she did request certain documents to be faxed to her including history and physical, progress notes, labs, LP results, culture results, MRI report and list of current medications to be faxed with attention to Christin. I communicated this to the oncology social work and she is currently working on that. At this point I do not really know what will be the way going forward since everywhere seems to refuse the patient. I have been in constant communication with patient advocate Ms. Nunez and Vanessa Zamora with regards to the patient and her disposition as well. cc: Joel Alexander MD MTDD
[2017-03-04] MEDS: REMERON PO SCH ×2 (03:00→23:28)
[2017-03-04] MEDS: MELATONIN PO SCH ×2 (03:00→23:28)
[2017-03-04] MEDS: LIPOSYN 20% 250 ML IV SCH ×3 (04:12→19:02)
[2017-03-04 06:41] LABS: BASO% 0.4 % (0.0-0.8); EOS# 0.08 X1000 (0.0-0.7); EOS% 1.2 % (0.0-10.0); HEMOGLOBIN 8.2 g/dL (12.0-16.0); IMM GRAN# 0.03 X1000 (0.0-0.04); IMM GRAN% 0.4 % (0.0-0.5); LYMPH% 10.4 % (20.5-51.1); MANUAL DIFF NEEDED? YES; MCH 28.4 PG (27-31); MCHC 32.8 g/dL (33-37); MCV 86.5 FL (81-99); MONO# 0.77 X1000 (0.11-0.59); MONO% 11.4 % (1.7-9.3); MPV 10.1 FL (7.4-10.4); NEUT% 76.2 % (42.2-75.2); PLT 252 X1000 (130-400); RBC 2.89 XMIL (4.2-5.4)
[2017-03-04 06:51] LABS: LYMPHS 16 % (21-51); MONO 8 % (1-9)
[2017-03-04 06:55] LABS: AGAP 12; BUN 29 mg/dL (8-22); CALCIUM 8.5 mg/dL (8.8-10.2); CHLORIDE 107 mmol/L (98-107); COSMO 287; MAGNESIUM 2.1 mg/dL (1.5-2.7); POTASSIUM 4.1 mmol/L (3.5-5.1); SODIUM 140 mmol/L (136-145); TCO2 21 mmol/L (25-35)
[2017-03-04] MEDS: LEXAPRO PO SCH (08:20)
[2017-03-04] MEDS: VITAMIN D PO SCH (08:20)
[2017-03-04] MEDS: CLINIMIX E 4.25%-5% SOLUTION 1,000 ML IV SCH ×2 (08:20→16:13)
[2017-03-04] MEDS: KEPPRA 1,000 MG in NS 100 ML IV SCH ×2 (11:28→22:15)
[2017-03-04] MEDS: ATIVAN IV PRN ×3 (11:28→22:00)
--- NOTE | 2017-03-04 12:35 | Diag Imaging Result Document ---
PROCEDURE NAME: CHEST-PORTABLE - 03/04/2017 SINGLE FRONTAL RADIOGRAPH OF THE CHEST: COMPARISON: 02/28/2017. FINDINGS: The left PICC line is stable. The malpositioned NG tube seen on the previous study has been removed. No new consolidations are appreciated. There is no definite pleural fluid collection. Cardiac silhouette is stable. IMPRESSION: Interval removal of the NG tube. Otherwise, the lungs are clear with no definite acute pathology.
[2017-03-04 13:07] LABS: URINE MICRO REVIEW NEEDED? NO; URINE SOURCE CATH
[2017-03-04 13:09] LABS: BILIRUBIN URINE NEGATIVE (NEGATIVE); BLOOD URINE SMALL (NEGATIVE); COLOR YELLOW; GLUCOSE URINE NEGATIVE (NEGATIVE); LEUKOCYTES URINE LARGE (NEGATIVE); NITRITE URINE NEGATIVE (NEGATIVE); PH URINE 6.5; PROTEIN URINE TRACE mg/dL (NEGATIVE); SP GRAVITY URINE 1.011; TURBIDITY URINE HAZY (CLEAR); UROBILINOGEN URINE NORMAL (NORMAL)
[2017-03-04 13:11] LABS: UR EPITHELIAL CELLS <10 /HPF (<10); URINE BACTERIA 4+ /HPF; URINE WBC TNTC /HPF (<10)
--- NOTE | 2017-03-04 15:30 | PROGRESS NOTE ---
DATE: 03/04/2017 SUBJECTIVE: Today, Ms. Mccartney continues to be completely agitated and non-interactive. OBJECTIVE: Vital Signs: Blood pressure is 132/45, pulse of 94, respiration is 16, temperature is 99.4 degrees. The patient had a temperature of a 100.2 degrees yesterday at about 2120. General: Ms. Mccartney is a 71-year-old female. She is in bed, continues to be very boisterous and inattentive, non cooperative. Chest was clear. Cardiovascular: Regular rate and rhythm. Abdomen is soft. Extremities: No pedal edema. COMMUNITY AMBASSADOR: The patient is stuporous. She will open her eyes to very painful stimulation but then will just go back to sleep, not very cooperative. LABORATORY DATA: WBC is 6.79, hemoglobin is 8.2, platelet count of 252,000. Chemistries reviewed and completely unremarkable. We did a urinalysis because of the fever. So far, it shows large leukocytes, numerous WBC, about 10-20. RBC 10-20. There is also 4+ bacteria. The urine has been daily. Of course, the patient has a catheter. ASSESSMENT: 1. Continue altered mentation with no focalizing signs. We will continue with symptomatic therapy. 2. Multivitamin and mineral deficiencies (vitamin B12 or folate and vitamin D). We will continue to replace. 3. Seizures, witnessed in the hospital. The patient is on Keppra. There has not been anymore convulsive episodes. 4. Pancytopenia, improved. 5. Suspected severe depression with agitation and behavioral disturbances. We will be using Haldol and other antipsychotic for symptoms control. 6. Abnormal urinalysis. I am not quite sure if this is significant for any infection because the patient continues to be altered. We will go ahead and start her on ceftriaxone to cover for possible urinary tract infections. 7. Of note, chest x-ray has been completely normal. 8. Diarrhea. The patient continues to have significant diarrhea. Her Clostridium difficile on 03/01/2017 was completely negative. We will order stool cultures and repeat the Clostridium difficile today. cc: Joel Alexander MD
[2017-03-04] MEDS: FOLIC ACID 1 MG in NS 50 ML IV SCH (16:08)
[2017-03-04] MEDS: ROCEPHIN 1 GM/NS 1 GM/50 ML IVPB IV SCH (16:49)
[2017-03-04] MEDS: M.V.I.-12 10 ML, FOLIC ACID 1 MG, MAGNESIUM SULFATE 1 GM, THIAMINE 100 MG in NS 1,000 ML IV SCH (16:59)
[2017-03-05] MEDS: CLINIMIX E 4.25%-5% SOLUTION 1,000 ML IV SCH ×2 (03:46→14:07)
[2017-03-05] MEDS: ATIVAN IV PRN (05:32)
[2017-03-05 08:03] LABS: AGAP 11; ALKALINE PHOSPHATASE 96 U/L (32-104); BUN 31 mg/dL (8-22); CALCIUM 8.7 mg/dL (8.8-10.2); CHLORIDE 109 mmol/L (98-107); COSMO 287; GOT 13 U/L (10-30); GPT 17 U/L (10-36); LIPASE 40 U/L (13-60); MAGNESIUM 2.2 mg/dL (1.5-2.7); POTASSIUM 4.1 mmol/L (3.5-5.1); SODIUM 140 mmol/L (136-145); TCO2 20 mmol/L (25-35); TOTAL BILIRUBIN 0.41 mg/dL (0.20-1.00); TOTAL PROTEIN 5.2 g/dL (6.3-8.3)
[2017-03-05 08:05] LABS: BASO% 1.1 % (0.0-0.8); EOS# 0.17 X1000 (0.0-0.7); EOS% 2.8 % (0.0-10.0); HEMATOCRIT 25.6 % (37.0-47.0); HEMOGLOBIN 8.2 g/dL (12.0-16.0); IMM GRAN# 0.02 X1000 (0.0-0.04); IMM GRAN% 0.3 % (0.0-0.5); LYMPH# 1.14 X1000 (1.2-3.4); LYMPH% 18.4 % (20.5-51.1); MANUAL DIFF NEEDED? YES; MCH 28.1 PG (27-31); MCV 87.7 FL (81-99); MONO# 0.79 X1000 (0.11-0.59); MONO% 12.8 % (1.7-9.3); MPV 10.4 FL (7.4-10.4); NEUT% 64.6 % (42.2-75.2); PLT 284 X1000 (130-400); RBC 2.92 XMIL (4.2-5.4)
[2017-03-05 08:44] LABS: EOS 2 % (1-10); LYMPHS 16 % (21-51); MONO 10 % (1-9)
[2017-03-05] MEDS ORDERED: BENADRYL IV ONE (10:52)
[2017-03-05] MEDS ORDERED: HALDOL IV ONE (10:52)
[2017-03-05] MEDS: LEXAPRO PO SCH (11:13)
[2017-03-05] MEDS: VITAMIN D PO SCH (11:13)
[2017-03-05] MEDS: KEPPRA 1,000 MG in NS 100 ML IV SCH ×2 (11:13→22:19)
[2017-03-05] MEDS: FOLIC ACID 1 MG in NS 50 ML IV SCH (14:07)
--- NOTE | 2017-03-05 15:24 | PROGRESS NOTE ---
DATE: 03/05/2017 SUBJECTIVE: Today Ms. Mccartney continues to be the same. No significant improvement in her medical condition. OBJECTIVE: Vital signs: Blood pressure is 129/59, pulse of 103, respirations temperature is 98.9 degrees. General: Ms. Mccartney 71-year-old female. She is in bed, continues to be very boisterous she is in 2-point restraint. HEENT: Mucosa is slightly dry. Anicteric. Acyanotic. Neck: Supple. Chest: Clear. Cardiovascular: Regular rate and rhythm. Abdomen: Soft. There is a peritoneal catheter in place. Extremities: No pedal edema. MAINTENANCE PAINTER: Patient is extremely stuporous, nonverbal and extremely inattentive, keeps moving from side to side. Does not follow any commands. LABORATORY DATA: 1. WBC is 6.18, hemoglobin is 8.2, platelet count is 284,000. There are no bands on the peripheral smear. Chemistry is reviewed. Completely unremarkable. 2. Microbiology: Urine culture yesterday started to grow a gram-negative angy. Patient is already on IV ceftriaxone. ASSESSMENT: 1. Altered mental status with no focalizing signs (delirium on top of possible Alzheimer's). The patient continues to be extremely boisterous and confused. We will use Haldol 4 mg stat and 4 mg q.6 as needed for agitation. 2. Multivitamin and mineral deficiencies (vitamin B 12, folate, and vitamin D). We will continue replacing that. 3. Seizures witnessed in hospital. Patient is on Keppra. There have not been any more convulsive episodes. 4. Suspect severe depression with agitation and behavioral disturbances. We will use Haldol. 5. Gram-negative angy urinary tract infection. Patient is already on ceftriaxone. We are going to discontinue the Pham catheter. 6. Diarrhea, improved, so far the stool white blood cell count is few, Clostridium difficile is negative. PLAN: So in general, Ms. Mccartney continues to be the same. There have not been any changes in her medical condition. We are going to discontinue the Pham catheter. We are going to continue with the current ceftriaxone. We will be pending a gram-negative angy in the urine, Infectious Disease and sensitivity. We will be awaiting the family members to see if they have any other place they would want her to go. cc: Joel Alexander MD
[2017-03-05] MEDS: M.V.I.-12 10 ML, FOLIC ACID 1 MG, MAGNESIUM SULFATE 1 GM, THIAMINE 100 MG in NS 1,000 ML IV SCH (18:16)
[2017-03-05] MEDS: ROCEPHIN 1 GM/NS 1 GM/50 ML IVPB IV SCH (18:19)
[2017-03-05] MEDS: LIPOSYN 20% 250 ML IV SCH (19:44)
[2017-03-05] MEDS: REMERON PO SCH (22:19)
[2017-03-05] MEDS: MELATONIN PO SCH (22:20)
[2017-03-05] MEDS: HALDOL IV PRN (23:25)
[2017-03-06] MEDS: CLINIMIX E 4.25%-5% SOLUTION 1,000 ML IV SCH ×2 (00:05→08:58)
[2017-03-06] MEDS ORDERED: ATIVAN IV ONE (03:39)
[2017-03-06] MEDS ORDERED: HALDOL IV ONE (07:53)
--- NOTE | 2017-03-06 08:19 | PROGRESS NOTE ---
DATE: 03/06/2017 Ms. Mccartney looks about the same. She is turning her head left and right, pulling at her wrist restraints, moaning and groaning, not interacting with family, not attentive to me, not following commands, not speaking. I do not see definite focal neurologic feature. There is no meningismus. Review of workup shows that she had generalized slowing on EEG on 02/23/2017. Brain MRI on 02/22/2017 with and without contrast showed some atrophy, previously known small right superior parietal meningioma but no evidence of infarction, no bleeding, nothing focal. Family had cell phone video typical of seizure and she was started on levetiracetam. She seems to be tolerating levetiracetam 1000 mg IV q.12 hours. She has not had any more clinical behavior typical of seizure. Her agitation has been temporarily improved with lorazepam and with haloperidol. I will order her another dose of haloperidol 5 mg IV this morning, which has been the dose she received recently. I discussed again with family difficulty managing delirium, agitated confusion in the setting of pre-existing dementia. I hope she will improve. cc: MD SAWYER Viera III
[2017-03-06] MEDS: VITAMIN D PO SCH (08:43)
[2017-03-06] MEDS: LEXAPRO PO SCH (08:43)
[2017-03-06] MEDS: KEPPRA 1,000 MG in NS 100 ML IV SCH ×2 (11:29→23:28)
[2017-03-06] MEDS: FOLIC ACID 1 MG in NS 50 ML IV SCH (13:23)
[2017-03-06] MEDS: HALDOL IV PRN (14:50)
[2017-03-06 15:29] LABS: CHLORIDE 105 mmol/L (98-107); POTASSIUM 4.1 mmol/L (3.5-5.1); SODIUM 137 mmol/L (136-145)
[2017-03-06 15:45] LABS: AGAP 16; BUN 34 mg/dL (8-22); COSMO 286; TCO2 17 mmol/L (25-35)
[2017-03-06 15:46] LABS: GOT 17 U/L (10-30); MAGNESIUM 2.1 mg/dL (1.5-2.7); PREALBUMIN 10.4 mg/dL (20-40); TRIGLYCERIDES 96 mg/dL (35-135)
[2017-03-06] MEDS: LIPOSYN 20% 500 ML IV SCH (17:19)
[2017-03-06] MEDS: TPN ELECTROLYTES 20 ML, MAGNESIUM SULFATE 4 MEQ, POTASSIUM CHLORIDE 30 MEQ, SODIUM PHOS... IV SCH ×8 (17:19)
[2017-03-06] MEDS: ROCEPHIN 1 GM/NS 1 GM/50 ML IVPB IV SCH (17:26)
--- NOTE | 2017-03-06 21:20 | PROGRESS NOTE ---
DATE: 03/06/2017 SUBJECTIVE: I saw Ms. Mccartney early in the morning about 9:00 in the morning. The son was there, the daughter in law was there, the was there and a very close [employer] member was also in the room. Ms. Mccartney continued to be completely delirious and nonfocalizing and nonverbal. OBJECTIVE: Vital signs: Her blood pressure is 160/134, pulse 114, temperature is 98.1, respirations 21. General: Ms. Mccartney is a 71-year-old female. She was in bed. Very agitated. No distress. Mucosa is slightly dry. Anicteric and acyanotic. Neck: Neck is supple. Chest: Good air entry bilaterally. No crepitations. No rhonchi. Abdomen: Soft. There is peritoneal catheter in place. CRANE MAN: Patient continues to be extremely stuporous, boisterous, nonverbal and combative. She is in 2-point restraint. However, occasionally when the bapt[employer] member talks to her, she will be calm and be attentive, but continues to be nonverbal. She would do this only with the baptist member, not even the son or the or the daughter in law. LABORATORY DATA: Chemistry: Sodium is 137, potassium is 4.1, chloride is 105, bicarb is 17, chloride is 116, BUN is 34, creatinine is fine. Glucose is okay. ASSESSMENT: 1. Acute delirium with possible underlying cognitive decline. Patient has been very delirious since she came to the hospital. She has been here for 15 days. Workup has included MRI, CT scan, lumbar puncture which have been completely normal. We have not had any success in trying to get her anywhere with psychiatric inpatient. 2. Multivitamin and mineral deficiency. We will continue to replace vitamin B12 , folate, and vitamin D. 3. Seizures witnessed in hospital. The patient is on Keppra. We will continue with this. There have not been any more convulsive episodes in the hospital. 4. Escherichia coli urinary tract infection. This just came up just about 3 days ago and I think it was because patient had a Pham catheter in so long, so we had to remove the catheter and we are going to continue with the current IV ceftriaxone. 5. Diarrhea. This is improved. All the cultures have been negative and Clostridium difficile is negative. 6. Suspected severe depression with agitation and behavioral disturbance. We will continue with the Haldol and Ativan. PLAN: So in general, Ms. Mccartney got admitted to the hospital on 02/19/2017 apparently because she was having she was having some confusion, some nausea and vomiting. From the history, Ms. Mccartney had stopped eating about 2 weeks prior. She had recently gotten a peritoneal dialysis catheter because they thought she probably has some kidney disease that was contributing to her altered mentation. However, during the hospital course, patient has had every test done and everything is normal, relatively unremarkable to explain her altered mentation. We have consulted [facility] but they would not take her because the patient is not ambulatory and it is the same story with all the other places that we have consulted, even in [place]. Patient is non ambulatory, they will not take her. Today the family members wanted a another Neurology opinion, so I consulted Dr. Toney, the new neurologist who will also review the patient and her investigations and see if she can give us some different recommendations. Right from day 1, patient has been seen by Neurology, Dr. Ty. I think the plan going forward now is get LTAC to review the patient and see if they will admit her because she is still getting IV antibiotics for the urinary tract infection and total parenteral nutrition. I think in the LTAC the patient might be able to get a psychiatric evaluation or if they deem she needs to be inpatient, patient can be sent to [facility] or any other facility with inpatient psychiatric. This has been a very tough case. Administration, Case Management and Patient Advocate have all been involved in the care. cc: MD SAWYER Clark
[2017-03-06] MEDS: MELATONIN PO SCH (23:28)
[2017-03-06] MEDS: REMERON PO SCH (23:28)
[2017-03-07] MEDS: HALDOL IV PRN (00:36)
[2017-03-07] MEDS: GEODON IM PRN (03:23)
[2017-03-07 06:56] LABS: CALCIUM 9.3 mg/dL (8.8-10.2); MAGNESIUM 2.2 mg/dL (1.5-2.7)
[2017-03-07] MEDS: LEXAPRO PO SCH (09:03)
[2017-03-07] MEDS: VITAMIN D PO SCH (09:03)
[2017-03-07] MEDS: KEPPRA 1,000 MG in NS 100 ML IV SCH ×2 (10:29→23:26)
--- NOTE | 2017-03-07 13:49 | CONSULTATION ---
DATE OF CONSULTATION: 03/06/2017 REASON FOR CONSULTATION: The patient is seen in consultation at the request of Dr. Alexander for a second neurologic opinion regarding altered mental status. HISTORY OF PRESENT ILLNESS: The patient is a 71-year-old female with a history of type 2 diabetes, renal disease, and kidney disease, who was admitted on 02/19/2017 for altered mental status. The history is taken from the family, who are all at bedside, as the patient is unable to provide this history. The overall picture they have given to me is that for the last year or so the patient has been forgetful and telling the same story more than once over a weekend and minor things with her memory that they all noticed but did not think much of it. Other than this, around Thanks she was still otherwise normal. Her sister did pass away just after Thanks which was stressful. Around Christmastime last year the patient began to lose her appetite. Because of her history of chronic renal issues for many years the family thought it was related to this. In October she was actually referred to a psychiatric therapist for the 1st time. During this time the patient's was also hospitalized with sepsis. The family reports that at the beginning of November all of the patient' s medications were discontinued and they report this was because they needed to be discontinued for 2 weeks before some kidney testing was performed. The patient never restarted her home medications since this time. It sounds like there was some confusion about when she was to restart her home medications after testing and she never started them. The last couple of months have been the worst for the patient. She has essentially stopped eating altogether, has not felt well, has had a significant weight loss , has had dizziness and her confusion has notably worsened. She underwent peritoneal dialysis catheter placement and two days later she was found on the floor next to her bed with a glazed over look to her face. She was not attentive to the person who had discovered her there. Rather she was looking off and seemingly talking with her aunt. She was taken to the hospital at this time and admitted. Since admission the family reports there was an attempt at peritoneal dialysis to see if this would help her altered mental status, but they report that the procedure was aborted and she has not had it since. On admission her BUN was 35 and her creatinine was 1.5. During her hospitalization her BUN and creatinine have been either normal or only very mildly elevated. She has been evaluated for mild left hydronephrosis, which was felt to be secondary to urinary retention and a Pham catheter was placed. She was also evaluated for pancytopenia and it was noted that she had mild thrombocytopenia on admission but worsened during the admission initially and she developed a worsening anemia as well, as well as transiently developing leukopenia. She was noted to be deficient in B12 and folic acid and repleted. Her reticulocyte count was low. Head CT on admission was negative for acute findings but showed moderate atrophy. MRI with and without contrast on 02/22 showed mild atrophy and a small right superior parietal meningeal based nodule compatible with a small meningioma. It also showed global atrophy of the pituitary per report. She had an EEG showing generalized theta delta slowing. She has had a lumbar puncture on 02/23. Per the family, on 02/22 she started to have periods of shaking. One of the events was captured on cell phone and I have reviewed this video. The family says it would last maybe 10 or 15 seconds and that she had numerous of those events within a short period of time, maybe a couple of hours. She got a 1st dose of Keppra and within a couple of hours she woke up, per the family, and this was the most awake they had seen her since the day of admission. She was able to eat small bites of food. She was talking to her family and they thought that this was what the issue was and that they would be discharged in the next couple of days. Unfortunately, she gradually worsened over the evening and continued to worsen until she has plateaued at her current state now since this past . Her current state consists of writhing, moaning, turning her head side to side, not talking to the family. They say she does this almost constantly but tires out and falls asleep. They say that having dirty diapers increases her agitation. She was evaluated by [facility] via telemedicine video and they reportedly thought this was extreme depression and that she needed psychiatric care and possibly ECT, per the family. Dr. Ty has been seeing the patient since admission has felt that she likely has had an undiagnosed at least mild cognitive impairment for the last 2 years and possibly Alzheimer's dementia over the last year and that she has an agitated delirium in the setting of her dementia. However, it seems as though her mental status would have cleared by now. Around early February she had received low doses of Ativan and ziprasidone and around March 02 Haldol was started. This is because she was so agitated. It looks like on 02/25 Remeron and escitalopram were also started. The family states that they do not notice a huge change with these medications but perhaps there is a tiny bit of improvement. PAST MEDICAL HISTORY: 1. In the the patient apparently had depression and possible hospitalization for treatment. The details are not clear to the family even. 2. Scarlet fever reported by the family. 3. Type 2 diabetes. They reported she was on metformin they believe before her medications were discontinued. 4. Recurrent UTIs. 5. Bilateral knee replacement. 6. Kidney disease with recent peritoneal dialysis catheter placement just prior to admission. 7. No history of head injury. 8. Normal per the family that they know of. 9. No known family history of seizures or strokes. No seizures previously herself. 10. Cholecystectomy SOCIAL HISTORY: She is . Lives with her . Her son has lived with her. She has a son and [id number] who live in [place] who are here visiting. She stopped smoking over 10 years ago. No alcohol or illicit drug use. FAMILY HISTORY: No history of strokes or seizures. Positive for diabetes. ALLERGIES: To codeine, sulfa, cortisone, Levaquin, SUSANNAH inhibitors, and oxycodone per the chart. MEDICATIONS: Current, reviewed in the chart. Notable for ceftriaxone, escitalopram, Haldol, Keppra 1 g IV q.12 hours, mirtazapine, Zofran, ziprasidone, folic acid. REVIEW OF SYSTEMS: Could not be obtained due to patient's mental status change. PHYSICAL EXAMINATION: Vital Signs: Reviewed in the chart. General: She is clearly agitated, lying in bed, with wrist restraints. Her head is turning side to side. She is writhing, moving all extremities, and moaning loudly. HEENT: Normocephalic. Anicteric. Dry mucous membranes. Neck: Supple. She moans loudly anytime I manipulate any of her extremities or her neck. Cardiovascular: Slightly tachycardic rate. Regular rhythm. No murmur appreciated. Lungs: Appeared to be clear anteriorly. Abdomen: Soft. Multiple bandages are present. Neurologic: Mental status: She is awake. She is not oriented, not attentive. She is writhing and moaning and turning her head side to side. When I initially approached her closely and called her name, her face which had tensed up appeared to relax briefly and her writhing briefly reduced for a moment. Cranial nerves: Her pupils are equal, round, reactive to light, 3.5 to 2 OU. Her face was symmetric. Could not appreciate dolls eyes but very difficult to assess. She was not resisting passive eye opening, though she was moaning more when I was performing this. Motor exam: Normal bulk and tone. She is at least against gravity in all of her extremities. The tone exam was somewhat limited because she would actively tense up at times when manipulating her extremities. Reflexes: There is no clonus. There is no Orellana's. It appeared her plantar responses were flexor bilaterally, although she withdrew quite a bit on testing. Her reflexes were reduced and unobtainable in the lower extremities. In the upper extremities, her right upper extremity was reduced compared to her left upper extremity throughout. Coordination, cerebellar, and gait testing was unable to assess due to patient's mental status. Sensory exam: She withdrew to pain in all 4 extremities, though it was delayed. PERTINENT DIAGNOSTICS: Head CT 02/20: No acute findings. Moderate atrophy was reported. MRI with and without contrast 02/22 reported mild atrophy, a small right superior parietal meningeal- based nodule compatible with a small meningioma, global atrophy of the pituitary. I am unable to see these pictures of the head CT or MRI at this time. EEG showed generalized theta delta slowing. Renal ultrasound showed mild left hydronephrosis. B12 was 214. Folate was less than 2. TSH and cortisol were normal. BUN has been normal to up to mid 30s. Creatinine has been normal to around 1.5. Her white blood cell count was transiently low. She did develop anemia as well as thrombocytopenia. CSF studies showed a white cell count 15, red blood cells 5,340, PMN 42%, mononuclear cells 58%. Glucose 53, protein 440. CSF AFB was negative. Oligoclonal banding was sent out to [facility] and the interpretation was that the serum bands were 7, the CSF bands were 9, and the interpretation was a difference of 2; normal is less than 4. This was deemed a negative study. VDRL was negative. HSV 1 and 2 were negative. Lactate was 68. One milliliter thin prep of her CSF was sent for cytology and read as negative. Also of note, her JOSE MIGUEL was negative. Complement was normal. HIV was negative. Hepatitis panel negative. Serum RPR was negative. Her AST and ALT are within normal limits. Alkaline phosphatase within normal limits. Ammonia within normal limits. CRP on 02/23 was 62 and high. A new urinalysis shows current UTI which is felt to be due to the Pham catheter placement. ASSESSMENT AND PLAN: This is a 71-year-old female with a history of chronic kidney disease, type 2 diabetes, and possibly a remote history of inpatient admission for depression many years ago who was admitted after being found down on the floor confused on 02/19. Family has reported at least 1 year or so of memory and recall issues that they felt were mild. They report loss of appetite since [place] which has gradually worsened especially in the last couple of months to where she is barely eating anything. There has been a weight loss noted as well. She had a peritoneal dialysis catheter placed 2 days prior to admission as this mental status change and loss of appetite was felt to be related to uremia. Since admission she has had new onset of possible seizures and her mental status apparently improved significantly after administration of Keppra, though this was only a transient improvement and since that time has continued to significantly decline. 1. Encephalopathy. Specific cause is unclear. Her home medications need to be cleared up because family all report she has stopped them all since early November. She has had extensive workup thus far. Notably: brain imaging has not revealed any acute process though mild atrophy and a small meningioma in the right superior parietal region was noted; CSF is not clearly normal: it has 15 whites in setting of 5340 reds, lymphocytic predominance, notably elevated protein of 440. I have spoken to the lab. A second cell count and diff was not performed. There is no remaining CSF in the lab for testing. She has had only one mild fever 03/03/17 but otherwise normal. More recently she has been started on psychiatric medications to control the agitation; family thinks it might help slightly. Notably, she may have developed new onset seizures and is being treated with keppra, though the seizures are not definitely confirmed. I do agree with Dr. Ty that this could be a previously undiagnosed dementia such as AD over the last couple of years in a patient that now has an agitated delirium protracted due to her lower reserve, though the extent it has been ongoing is concerning. I think other medical etiologies should be excluded first. A few things come to mind- I suggest further evaluation for ATHLETIC AGENT infection to include viral etiologies. Her age along with her h/o appetite loss and weight loss are concerning for underlying malignancy. She is older, but an autoimmune encephalitis is in the differential. These possible new onset seizures since hospitalized are also concerning for underlying medical illness in light of her protracted and progressive encephalopathy. Suggest asking ID to evaluate her further, in particular, her CSF studies, and get their thoughts. A repeat LP with large volume to reevaluate basic studies including obtaining cell count and diff in both tubes 1 and 4, protein, glucose , viral studies (enterovirus, arboviruses, VZV, CMV, EBV), listeria, lyme. Consider CSF cytology and flow cytometry. Consider CSF paraneoplastic panel and CSF NMDA-receptor antibodies, AMPA-receptor antibodies. Serum paraneoplastic panel, serum NMDA and AMPA. If felt indicated, consider cancer evaluation. Consider holding the psychiatric medications if no major improvement has been seen using them. If all results are still unrevealing, then I suppose this could be psychiatric as [facility] has reportedly suggested, and perhaps the previous "seizures" were non-epileptic events. I cannot tell with confidence from the video presented. Thank you for this consultation. cc: Myra Toney MD [facility]
[2017-03-07] MEDS: LIPOSYN 20% 500 ML IV SCH (14:38)
[2017-03-07] MEDS: TPN ELECTROLYTES 20 ML, MAGNESIUM SULFATE 4 MEQ, POTASSIUM CHLORIDE 30 MEQ, SODIUM PHOS... IV SCH ×8 (14:38)
[2017-03-07] MEDS: FOLIC ACID 1 MG in NS 50 ML IV SCH (14:38)
[2017-03-07] MEDS: ROCEPHIN 1 GM/NS 1 GM/50 ML IVPB IV SCH (15:31)
--- NOTE | 2017-03-07 16:03 | PROGRESS NOTE ---
DATE: 03/07/2017 SUBJECTIVE: Ms. Diane Mccartney is a 71-year-old female who is currently very agitated and has right wrist restraints in, is nonverbal. She moans and groans and does not follow commands. She will focus on who is speaking. OBJECTIVE: Vital Signs: Temperature is 98.1 degrees, heart rate 106, respiratory rate is 21, blood pressure 121/87, O2 saturation 98% on room air. General: Ms. Diane Mccartney is a 71-year- old female, very agitated and is nonverbal. Cardiovascular: S1, S2. Tachycardic rate and rhythm. No rubs, gallops, murmurs. Pulmonary: Clear to auscultation. Bilateral breath sounds. No accessory muscle use or work of breathing noted. GI: Soft, nontender, nondistended. Positive bowel sounds x4. Extremities: Lower extremities trace edema. There are +2 dorsalis and radial pulses. Neurologic: Will not follow commands but will open eyes to verbal stimuli and focus on speaker. She mumbles and grumbles and moves all extremities equally. LABORATORY DATA: No current CBC. Sodium is 138, potassium 4.0, BUN 30, creatinine is 1.0, glucose 144, phosphorus is 4.1, magnesium 2.2. IMAGING: None. ASSESSMENT AND PLAN: 1. Acute delirium with possible underlying cognitive decline. She has been very delirious since she has been to the hospital and has been here for 16 days now. MRI, CAT scan, lumbar puncture have all been normal. A 2nd opinion neurology consult has been obtained with diagnosis of encephalopathy with unclear calls with recommendations of having ID re-evaluate CSF studies. Consider holding psych medications. 2. Encephalopathy, unknown cause. 3. Vitamin and mineral deficiency. Continue with vitamin B12, folate, and vitamin D. 4. Seizures, witnessed in the hospital. Continue on Keppra. Neurology considered this to be possibly progression in encephalopathy. 5. Escherichia coli urinary tract infection. Pham catheter had been removed. Continue ceftriaxone. 6. Diarrhea which has improved. Negative for Clostridium difficile. 7. Suspected severe depression with agitation and behavioral disturbance. She has been on Haldol and Ativan for this. Dictated by AMEENA Alvarado for Javy Hollis MD cc: AMEENA Alvarado MD
--- NOTE | 2017-03-07 16:54 | PROGRESS NOTE ---
DATE: 03/07/2017 SUBJECTIVE: Ms. Mccartney was admitted on 02/19/2007. She is a 71 year old with a 2-day history of confusion, type 2 diabetes mellitus, chronic kidney disease stage III-B, being followed by Dr. Perea regarding condition of chronic kidney disease. Two days ago had peritoneal dialysis and a catheter placed in abdomen by Dr. Amezcua. The patient reports she has been cognitively declining prior to that. Family reports she has a very slow progress, progressive decline in her mentation, but nothing compared to what she is doing now. Reported that her appetite for the last 2 months declined significantly up to the point that she lost 63 pounds. They report that she has been having protracted nausea, occasional vomiting, but nothing in the last 12 hours. During admission, no reported diarrhea, no blood loss from any orifice. The patient was not able to give much history. 1. The patient was admitted for metabolic encephalopathy, chronic kidney disease stage III-B, dehydration, and type 2 diabetes. She has been here since that time. She has had a renal ultrasound and, where we are at the present time is that her encephalopathy is really not improved, still has delirium, still agitated. She has required restraints. They have done MRI, CT scan, lumbar puncture with unremarkable findings. 2. Multivitamin, mineral deficiency, and they are replacing vitamin B 12, folate, and vitamin D 3. 3. Seizure witnessed in the hospital. Patient put on Keppra. The EEG was unremarkable, except diffuse slowing which is nonspecific, but empirically she is on Keppra. 4. Escherichia coli urinary tract infection. This came up just about 3 days ago. The patient has a Pham catheter in, so we are treating her with ceftriaxone. 5. Diarrhea or loose stool, negative for Clostridium. 6. Suspected severe depression and behavior disturbance. She is admitted to the hospital on 02/19/2017. Apparently the patient has been having trouble having some confusion and nausea and vomiting. From the history, Ms. Mccartney stopped eating about 2 weeks ago, recently gotten peritoneal dialysis catheter because they thought she probably had some kidney disease with the kidney disease contributing to her altered mental status. However, during the hospital course the patient had every test done and everything was normal relative to the unremarkable explained altered mentation. [facility], but they would not take her because patient is not ambulatory and the same story with the other places, even in [place]. Because the patient is not ambulatory, nobody will take her. Yesterday family members wanted a second neurology opinion. The plan is to try and get her to LTAC. Review her medications at the present time. I am going to stop the serotonin medication. At this point, I think we need to get her off of anything that may be causing some confusion. We will stop the Remeron. We will stop the melatonin and see if we see any significant improvement. cc: Javy Hollis MD
--- NOTE | 2017-03-07 17:57 | CONSULTATION ---
DATE OF CONSULTATION: 03/07/2017 CONCLUSION: I have been asked to see the patient. She has an altered mental status and she does have a leukocytosis. The etiology of these findings is uncertain to me. She does have an E. coli urinary tract infection, but I do not think it was severe enough to be causing her to have an altered mental status. She did have a spinal tap. The spinal fluid did not grow anything. I did not see the results of protein and AFB smears and cryptococcal antigens. Possibly the fluid was not sent for them. RECOMMENDATIONS: At this time, I do not have any recommendations from an infectious disease point of view. The Rocephin she is on should cover the E. coli that is growing in her urine. I think if the 1st spinal fluid drawn was not sent for things like cell count, protein, glucose, AFB studies, cryptococcal antigen and fungal cultures, it might be reasonable to repeat the LP and sending it off for more tests. DISCUSSION: The patient is unable provide a history. According to her in the past 2 months she has lost her appetite. She is very weak and tired. She is eating very little. She does not have any fever, chills or coughing or vomiting, and she was not complaining of any pain to her . Laboratory studies thus far show a CBC with a white count of 16,180, hemoglobin 8.2 and platelet count 284,000. Creatinine is 1. GFR is 55. Urine culture grew Escherichia coli. Stool for Clostridium difficile and stool for culture both were negative. Cerebral spinal fluid culture was negative. Chest x-ray showed clear lung owens. PAST MEDICAL HISTORY/REVIEW OF SYSTEMS: General: The patient has declined quite a bit. She is weak. She is lethargic. She has a depressed level of consciousness. She had not been complaining of any chest pain, abdominal pain, diarrhea, dysuria, headache, stiff neck, loss of vision, loss of hearing, skin rashes. I do not have anything further to add as far as review of systems. 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 She has had a tubal ligation and hysterectomy. PREVIOUS HOSPITALIZATIONS AND OPERATIONS: She has had a cholecystectomy and placement of a dialysis catheter. MEDICAL DISEASES: Positive for diabetes mellitus, hypertension. INFECTIOUS DISEASE HISTORY: Positive for UTI. FAMILY HISTORY: Positive for diabetes mellitus and stroke. SOCIAL HISTORY: [place] She is . She stopped smoking cigarettes 40 years ago. She has a dog as a pet. She does not smoke cigarettes, drink alcoholic beverages or abuse drugs. ALLERGIES: She is allergic to codeine and Benadryl. HOME MEDICATIONS: Metformin, losartan, pravastatin, Reglan, bisoprolol, diclofenac and nitrofurantoin. PHYSICAL EXAMINATION: Vital Signs: Temperature is 98.1 degrees, pulse 106, respirations 21, blood pressure 132/104. Patient's weight is listed as 214 pounds. General: This is an obese, elderly female. She has a depressed level of consciousness. Head, eyes, ears, nose, and throat: She did not respond to verbal stimuli. Her eyes were closed. There was no drainage from her nose or ears. Neck: No meningismus. Thorax: No increased AP diameter of the chest. Lungs: Clear to auscultation. Cardiovascular: Heart rate is regular. I did not hear a murmur. Abdomen: Soft and nontender. Neurologic: Patient is obtunded. There is no tremor. She did not follow request to move her extremities. There was no drainage from the nose or ears. Thank you for consult. cc: Larry Kendall MD
[2017-03-08] MEDS: TYLENOL PR PRN ×3 (03:34→15:31)
[2017-03-08] MEDS: HALDOL IV PRN (03:34)
[2017-03-08 06:17] LABS: CALCIUM 8.9 mg/dL (8.8-10.2); POTASSIUM 4.4 mmol/L (3.5-5.1)
[2017-03-08] MEDS: VITAMIN D PO SCH (09:36)
[2017-03-08] MEDS: KEPPRA 1,000 MG in NS 100 ML IV SCH ×2 (11:32→23:09)
[2017-03-08] MEDS: FOLIC ACID 1 MG in NS 50 ML IV SCH (13:34)
[2017-03-08 14:06] LABS: URINE SOURCE CATH
[2017-03-08 14:10] LABS: BILIRUBIN URINE NEGATIVE (NEGATIVE); BLOOD URINE SMALL (NEGATIVE); COLOR ORANGE; GLUCOSE URINE NEGATIVE (NEGATIVE); LEUKOCYTES URINE LARGE (NEGATIVE); NITRITE URINE NEGATIVE (NEGATIVE); PH URINE 5.5; PROTEIN URINE 30 mg/dL (NEGATIVE); SP GRAVITY URINE 1.016; TURBIDITY URINE TURBID (CLEAR); UR EPITHELIAL CELLS <10 /HPF (<10); URINE BACTERIA NEGATIVE /HPF; URINE MICRO REVIEW NEEDED? YES; URINE RBC 20-40 /HPF (<10); URINE WBC TNTC /HPF (<10); UROBILINOGEN URINE NORMAL (NORMAL)
[2017-03-08 14:34] LABS: URINE CASTS NONE SEEN
--- NOTE | 2017-03-08 14:35 | Diag Imaging Result Document ---
PROCEDURE NAME: CHEST-PORTABLE - 03/08/2017 PORTABLE CHEST: COMPARISON: 03/04/2017. FINDINGS: No change in the left sided PICC Line. Poor inspiratory effort. The heart is not enlarged. The vessels are not distended. No pneumonia. No pleural effusions identified. IMPRESSION: No pneumonia.
[2017-03-08] MEDS: LIPOSYN 20% 500 ML IV SCH (14:54)
[2017-03-08] MEDS: TPN ELECTROLYTES 20 ML, MAGNESIUM SULFATE 4 MEQ, POTASSIUM CHLORIDE 30 MEQ, SODIUM PHOS... IV SCH ×8 (14:54)
[2017-03-08] MEDS: ROCEPHIN 1 GM/NS 1 GM/50 ML IVPB IV SCH (14:55)
[2017-03-08] MEDS ORDERED: STERILE WATER INJ. INJ ONE ×2 (15:48→19:24)
[2017-03-08] MEDS ORDERED: CATHFLO IV ONE ×2 (15:48→19:24)
--- NOTE | 2017-03-08 18:11 | PROGRESS NOTE ---
DATE: 03/08/2017 PRESENT ILLNESS: The patient has been febrile and she has had a marked altered mental status. The exact etiology of this is uncertain to me. MEDICATIONS: The patient has been receiving Rocephin. PHYSICAL EXAMINATION: Vital Signs: Temperature maximum was 101.4. Currently it is 100.4, pulse is 130, respirations 20, blood pressure 149/60. General: This is an ill- appearing, elderly female who is moaning and in bed and kind of thrashing around. Lungs: Clear to auscultation. Cardiovascular: Regular heart rate. Abdomen: Soft in the upper part. In the lower part of the abdomen where she had recently a peritoneal dialysis catheter, there is induration and some actually hard nodular lesions. Neurologic: As mentioned above, the patient is delirious. She is thrashing around in bed and a crying like noise she is making. ASSESSMENT AND PLAN: I am concerned that the patient may have an intra- abdominal infection, even though she has had a renal CT scan and renal ultrasound. I have discontinued Rocephin and placed the patient on a combination of daptomycin and Zosyn. Also, I have ordered a noncontrasted CT scan of the abdomen and pelvis. COMORBIDITIES: She does have diabetes and she recently had surgery on her abdomen which consisted of putting in a peritoneal dialysis catheter. LAB AND X-RAY: The patient had a creatinine today. It was 1 and the GFR was 55. A chest x-ray showed no pneumonia. cc: Larry Kendall MD MTDD
[2017-03-08] MEDS ORDERED: CUBICIN (FOR INPATIENT USE) 600 MG in NS 100 ML IV SCH (18:30)
--- NOTE | 2017-03-08 18:35 | PROGRESS NOTE ---
DATE: 03/08/2017 SUBJECTIVE: The felt like she is a little better this morning, but this afternoon she again is crying out. She is moving. She appears to be hyper autonomic. She is restless. Going back over her history again, the son said that the day of the catheter, she seemed to do fine. The next day they noticed a little more confusion and this progressed the next 3 days, and that is when they brought her to the emergency room. They did not report any fever or chills, but just felt like she was very uncomfortable. She continues to have confusion. No focal deficit that I can appreciate. There was a questionable seizure witnessed on the phone, but the EEG showed nonspecific diffuse slowing consistent with just nonspecific encephalopathy. She has spiked a temperature 101.4. I had them obtain some blood cultures. We did another chest x-ray and urine. EXAM: General: She is moving all extremities. She requires 4 point restraints. VITAL SIGNS: Temp was 100.4 recently. Pulse 130, respirations 20, blood pressures have been between 102 to 149/52 to 111. Neck: CVP is less than 6 cm. Lungs: Clear anterolateral. Abdomen: I do not see any distention. No obvious signs of tenderness, but it is difficult to tell. Extremities: She is very restless, no edema. LAB: White count reviewed from the 7th. CBC reviewed from the 7th. Chemistry today: Sodium 140, potassium 4.4, chloride 108, BUN 30, creatinine 1.0. Blood sugar 170, 153, 168, 157. We did a chest x-ray today. The report was no infiltrate. No pneumonia. She has a left-sided PICC line. ASSESSMENT AND PLAN: 1. General nonspecific metabolic encephalopathy that appears to be almost a toxic encephalopathy. She is very agitated. She has a combination of altered sensorium. She has hyperautonomic function. I do not pick and shovel man any myoclonus. No focal deficits. We have stopped all medications, especially serotonin medications that would increase the serotonin. 2. The timing of this, she has fever, question on whether this is infection. Consider peritonitis or intraabdominal infection. We will cover for gram-negative, cover for gram- positive and she has recently had her peritoneal catheter placed. 3. Underlying dementia. Aware. 4. Questionable seizure disorder. She is on Keppra. I am going to try and avoid Haldol or Geodon or any of the neuroleptics and we will simply use IV Ativan. Will continue her antibiotics and see if we can make any progress. I have reviewed all her labs. I think I am going to recheck some of this lab again. B12, folate, T4, TSH, ammonia level, electrolytes, magnesium. Will get a sedimentation rate. cc: Javy Hollis MD
[2017-03-08] MEDS: ATIVAN IV PRN (21:49)
[2017-03-08] MEDS: ZOSYN 3.375 GM/NS 3.375 GM/50 ML IVPB IV SCH (21:50)
[2017-03-09] MEDS: ZOSYN 3.375 GM/NS 3.375 GM/50 ML IVPB IV SCH ×3 (05:21→18:01)
[2017-03-09 06:58] LABS: MANUAL DIFF NEEDED? NO
[2017-03-09 07:05] LABS: BASO% 0.3 % (0.0-0.8); EOS% 4.3 % (0.0-10.0); HEMATOCRIT 26.4 % (37.0-47.0); HEMOGLOBIN 8.4 g/dL (12.0-16.0); IMM GRAN# 0.02 X1000 (0.0-0.04); IMM GRAN% 0.3 % (0.0-0.5); LYMPH# 1.04 X1000 (1.2-3.4); LYMPH% 14.9 % (20.5-51.1); MCH 27.9 PG (27-31); MCHC 31.8 g/dL (33-37); MCV 87.7 FL (81-99); MONO# 0.91 X1000 (0.11-0.59); MONO% 13.1 % (1.7-9.3); MPV 10.1 FL (7.4-10.4); NEUT% 67.1 % (42.2-75.2); PLT 314 X1000 (130-400); RBC 3.01 XMIL (4.2-5.4)
[2017-03-09 07:17] LABS: ALBUMIN 2.5 g/dL (3.5-5.0); CALCIUM 9.2 mg/dL (8.8-10.2); MAGNESIUM 2.1 mg/dL (1.5-2.7); TOTAL BILIRUBIN 0.28 mg/dL (0.20-1.00)
[2017-03-09 07:29] LABS: FREE T4 1.74 ng/dL (0.93-1.70)
[2017-03-09 08:09] LABS: SED RATE 131 mm/hr (0-20)
--- NOTE | 2017-03-09 09:12 | Diag Imaging Result Document ---
PROCEDURE NAME: ABDOMEN/PELVIS W/O CONTRAST - 03/09/2017 CT UROGRAM WITHOUT CONTRAST: FINDINGS: The fluid collections, both in the pleural spaces and in the peroneal space has diminished since the previous examination of 02/21/2015. The peroneal dialysis catheter remains anteriorly on the right side of the pelvis adjacent to the urinary bladder. The urinary bladder is markedly distended. The Pham catheter, which was present previously, is no longer demonstrated. The bladder extends to the sacral promontory and slightly above. There is no evidence of bowel obstruction. There is bilateral hydronephrosis. This is probably secondary to distention of the bladder. Marked cortical scarring is present again in the right kidney, which may be due to previous pyelonephritis and/or reflux nephropathy. The gallbladder is not distended. There are spondylotic changes in the lumbar spine. No apparent change has occurred since the previous study, with regard to the regional skeleton. There are a few areas of sclerosis present in the T12 and L1 vertebral bodies of uncertain significance. IMPRESSION: Obstructive uropathy, apparently due to massive distention of the urinary bladder. Findings were discussed with Dr. Larry Kendall by telephone at 0850 hours. [facility]ERS[facility]
[2017-03-09] MEDS: KEPPRA 1,000 MG in NS 100 ML IV SCH ×2 (10:58→23:02)
[2017-03-09] MEDS: TYLENOL PR PRN (13:57)
[2017-03-09] MEDS: LIPOSYN 20% 500 ML IV SCH (14:00)
[2017-03-09] MEDS: FOLIC ACID 1 MG in NS 50 ML IV SCH (14:00)
[2017-03-09] MEDS: TPN ELECTROLYTES 20 ML, MAGNESIUM SULFATE 4 MEQ, POTASSIUM CHLORIDE 30 MEQ, SODIUM PHOS... IV SCH ×8 (14:00)
--- NOTE | 2017-03-09 17:39 | PROGRESS NOTE ---
DATE: 03/09/2017 SUBJECTIVE: She is lethargic, sleepy, but appears comfortable. Still requires restraints. She has remained afebrile last night. The day before, she spiked temperature to 101 4. EXAM: Vital Signs: This morning, temperature 99.7, pulse 120, respirations 22, blood pressure 129/59. Lungs: Clear anterolateral. Cardiovascular: Regular rhythm and rate without murmur or S3. Abdomen: Soft. Skin: Warm and dry. ASSESSMENT AND PLAN: 1. We did an abdominal pelvic CT and she has obstructive uropathy apparently due to massive distention of the urinary bladder. Findings discussed with Dr. Kendall to put a Pham catheter in. Did not find anything in the abdomen, but the bladder extended from the sacral promontory slightly above. No evidence of bowel obstruction. 2. General nonspecific metabolic encephalopathy. Dr. Ty is following. I have taken away from medications, and chose the ones that might elevate serotonin. She has less hyper- autonomic symptomatology. We are using Ativan for sedation and only benzodiazepines. Seems to be doing a little better. 3. The timing of her confusion, we do not see any evidence of intraabdominal infection, but have her on empiric antibiotics for this. Cover gram-positive and gram-negative. 4. Underlying dementia. 5. Questionable history of seizures. She was put on Keppra. Not sure whether this has helped. It did seem like it helped her the day after. So I am going to leave that alone for now. Apparently, there was a seizure that was witnessed although the EEG was nonspecific. She is getting total parenteral nutrition. She is on daptomycin and she is getting levetiracetam 1000 mg q.12 hours and Zosyn 3.375 mg IV q.6. cc: Javy Hollis MD
--- NOTE | 2017-03-09 17:42 | PROGRESS NOTE ---
DATE: 03/09/2017 ADDENDUM REPORT: The patient is unable to take oral medication. Therefore, I discontinued Ditropan and instead put her on B O suppositories every 6 hours. cc: Larry Kendall MD
--- NOTE | 2017-03-09 17:49 | PROGRESS NOTE ---
DATE: 03/09/2017 PRESENT ILLNESS: The patient has had fever and altered mental status. On CT scan today she had diffuse distention of the bladder and bilateral hydronephrosis, all indicating an obstruction to her urine. MEDICATIONS: The patient has been on daptomycin and Zosyn starting yesterday. PHYSICAL EXAMINATION: Vital Signs: Temperature is 99.7 degrees, pulse 122, respiration 22, blood pressure 129/59. General: This is an ill-appearing, elderly female. She moans quite a bit. She appears to be very uncomfortable. Lungs: Clear to auscultation. Cardiovascular: Regular heart rate. Abdomen: There was no distention. No masses were appreciated. Neurologic: The patient is moaning. She is delirious. ASSESSMENT AND PLAN: Patient appeared to have an obstruction to her urinary tract infection and a Pham catheter has been put in. Now she is still moaning and we are concerned that maybe she is having bladder spasms from the catheter. The plan would be to start her on a medicine for bladder spasm, specifically the medication is Ditropan in a dose of 5 mg p.o. b.i.d. I have discontinued daptomycin but will continue Zosyn to treat her urinary tract infection, plus if there is any other infection in the abdomen in view of the fact that she recently had a peritoneal dialysis catheter placed in there. COMORBIDITIES: She is elderly. She recently had surgery, installing a peritoneal dialysis catheter. LAB AND X-RAY: The CT scan showed distention of the bladder and bilateral hydronephrosis. Patient's CBC showed a white count of 6960, hemoglobin 8.4, and platelet count 314,000. Creatinine is 1.1. GFR is 49. Liver function studies are normal. cc: Larry Kendall MD
[2017-03-09] MEDS: B & O 15A SUPP PR SCH (17:55)
[2017-03-09] MEDS ORDERED: DITROPAN PO SCH (20:00)
[2017-03-09] MEDS: HALDOL IV PRN (21:51)
[2017-03-09] MEDS: ATIVAN IV PRN (23:01)
[2017-03-10] MEDS: ZOSYN 3.375 GM/NS 3.375 GM/50 ML IVPB IV SCH ×5 (00:21→23:39)
[2017-03-10] MEDS: B & O 15A SUPP PR SCH ×4 (00:21→18:05)
[2017-03-10 07:40] LABS: HEMATOCRIT 24.4 % (37.0-47.0); HEMOGLOBIN 7.7 g/dL (12.0-16.0); MCH 28.3 PG (27-31); MCHC 31.6 g/dL (33-37); MCV 89.7 FL (81-99); MPV 9.8 FL (7.4-10.4); RBC 2.72 XMIL (4.2-5.4)
[2017-03-10 07:42] LABS: CALCIUM 8.8 mg/dL (8.8-10.2); MAGNESIUM 1.9 mg/dL (1.5-2.7); POTASSIUM 4.2 mmol/L (3.5-5.1)
[2017-03-10] MEDS: ATIVAN IV PRN ×2 (11:13→22:01)
[2017-03-10] MEDS ORDERED: HEPARIN ONE (11:23)
--- NOTE | 2017-03-10 13:02 | PROGRESS NOTE ---
DATE: 03/10/2017 PRESENT ILLNESS: The patient appears to be delirious. She continually moans. She also went into urinary retention and required placement of a Pham catheter. Thus far, we have been unable to ascertain the etiology of her illness. MEDICATIONS: The patient is on Zosyn. She also has been getting B and O Suppositories for what we think are bladder spasms. PHYSICAL EXAMINATION: Vital Signs: Temperature is 98.2 degrees, pulse 94, respirations 17, blood pressure 126/55. General: This is an ill-appearing, elderly female. As mentioned above, she periodically moans as if she is experiencing some type of pain. She has a Pham catheter in place. LABORATORY AND IMAGING STUDIES: Her CBC today shows a white count of 5100, hemoglobin 7.7, and platelet count 225,000. The patient had 2 blood cultures drawn yesterday. One is negative. The other grew a coagulase-negative Staphylococcus. The patient's creatinine is 1.0 with a GFR of 55. The patient's liver function studies are normal. The alkaline phosphatase is only 114, which is barely elevated. There is no new radiographic study. ASSESSMENT AND PLAN: The patient has an altered mental status and urinary retention. The cause of her altered mental status is uncertain. Our plan is to continue the B and O Suppositories, and also I want to continue her Zosyn over the weekend. COMORBIDITIES: Include the fact that she is elderly and she recently had a surgical procedure, mainly putting in a peritoneal dialysis catheter. cc: Larry Kendall MD
--- NOTE | 2017-03-10 13:02 | PROGRESS NOTE ---
DATE: 03/10/2017 Ms. Mccartney had a few pretty good days, more calm, less apparent agitation. This morning, she is groaning with each breath, squirming, moving all limbs, not attentive to me. She did pause her squirming and seemed very calm for a few minutes while I was at the bedside talking to her and holding her hand. I agree with plans to reduce medications n the hospital. The medicine record shows she has been getting lorazepam 1 mg averaging 1 daily and haloperidol 5 mg averaging 1 dose daily. Eventually, we might consider stopping her levetiracetam and we might consider further workup. Thanks for allowing me to follow Ms. Mccartney. cc: Lefty Ty III, MD MTDD
[2017-03-10] MEDS: KEPPRA 1,000 MG in NS 100 ML IV SCH ×2 (15:45→22:01)
[2017-03-10] MEDS: TPN ELECTROLYTES 20 ML, MAGNESIUM SULFATE 4 MEQ, POTASSIUM CHLORIDE 25 MEQ, SODIUM PHOS... IV SCH ×8 (15:46)
[2017-03-10] MEDS: LIPOSYN 20% 500 ML IV SCH (15:46)
[2017-03-10] MEDS: FOLIC ACID 1 MG in NS 50 ML IV SCH (16:01)
--- NOTE | 2017-03-10 16:30 | PROGRESS NOTE ---
DATE: 03/10/2017 SUBJECTIVE: The patient remains very confused and delirious. She is not in wrist restraints today. She has continuous periods of agitation. OBJECTIVE: Vital Signs: Temperature 98 degrees, blood pressure 126/55, heart rate 94, respiration 17, O2 saturations 96% on room air. General: This is an elderly female, lying in bed, in no acute distress. Head: Normocephalic, atraumatic. Heart: S1, S2. Tachycardic. Lungs: Clear to auscultation bilaterally. No wheezing, no rales. No rhonchi. Abdomen: Positive bowel sounds. Soft, nontender, nondistended. Extremities: No edema. No cyanosis. No calf tenderness. Neurologic: The patient is markedly confused and agitated. She is able to move all 4 extremities. LABS: White blood cell count 5.1, hemoglobin 7.7, hematocrit 24, platelets 225,000, sodium 144, potassium 4.2, chloride 101, CO2 23, BUN 27, creatinine 1, glucose 139, phosphorus 4.6, magnesium 1.9. ASSESSMENT AND PLAN: 1. Global encephalopathy with delirium. The patient remains confused. She has had an extensive workup with no obvious source for the patient's confusion. We will continue to monitor closely for improvement. 2. Urinary retention. Continue with the Pham catheter. 3. Urinary tract infection secondary to Escherichia coli. The patient is currently on Zosyn. 4. Acute kidney injury. Resolved. 5. Severe protein calorie malnutrition. The patient is currently receiving TPN. We may eventually have to discuss with the family consideration of a feeding tube if the patient's mental status does not improve enough for her to be able to take oral intake. 6. Diabetes mellitus type 2. Continue on sliding scale insulin. 7. Hypertension. Controlled. 8. The plan of care was discussed with the patient's at the bedside. cc: Brandee Rhodes MD
[2017-03-10 18:04] LABS: URINE SOURCE CATH
[2017-03-10 18:11] LABS: BILIRUBIN URINE NEGATIVE (NEGATIVE); BLOOD URINE MODERATE (NEGATIVE); COLOR YELLOW; GLUCOSE URINE NEGATIVE (NEGATIVE); LEUKOCYTES URINE LARGE (NEGATIVE); NITRITE URINE NEGATIVE (NEGATIVE); PH URINE 5.5; PROTEIN URINE 70 mg/dL (NEGATIVE); TURBIDITY URINE HAZY (CLEAR); UROBILINOGEN URINE NORMAL (NORMAL)
[2017-03-10 18:33] LABS: UR EPITHELIAL CELLS <10 /HPF (<10); URINE BACTERIA NEGATIVE /HPF; URINE MICRO REVIEW NEEDED? YES; URINE RBC TNTC /HPF (<10); URINE WBC TNTC /HPF (<10)
[2017-03-10 18:49] LABS: URINE CASTS NONE SEEN
[2017-03-10] MEDS: LOVENOX SUBQ SCH (18:49)
[2017-03-11] MEDS: B & O 15A SUPP PR SCH ×5 (01:07→23:53)
[2017-03-11 07:57] LABS: MANUAL DIFF NEEDED? NO
[2017-03-11 08:28] LABS: BASO% 0.3 % (0.0-0.8); EOS# 0.25 X1000 (0.0-0.7); EOS% 6.7 % (0.0-10.0); HEMATOCRIT 24.9 % (37.0-47.0); HEMOGLOBIN 7.7 g/dL (12.0-16.0); IMM GRAN# 0.03 X1000 (0.0-0.04); IMM GRAN% 0.8 % (0.0-0.5); LYMPH# 0.93 X1000 (1.2-3.4); MCH 27.4 PG (27-31); MCHC 30.9 g/dL (33-37); MCV 88.6 FL (81-99); MONO# 0.54 X1000 (0.11-0.59); MONO% 14.5 % (1.7-9.3); MPV 10.3 FL (7.4-10.4); NEUT% 52.7 % (42.2-75.2); PLT 229 X1000 (130-400); RBC 2.81 XMIL (4.2-5.4)
[2017-03-11 08:41] LABS: CALCIUM 8.5 mg/dL (8.8-10.2); MAGNESIUM 1.8 mg/dL (1.5-2.7); PREALBUMIN 11.1 mg/dL (20-40)
[2017-03-11] MEDS: KEPPRA 1,000 MG in NS 100 ML IV SCH ×2 (12:30→23:21)
[2017-03-11] MEDS: ZOSYN 3.375 GM/NS 3.375 GM/50 ML IVPB IV SCH ×4 (13:14→23:21)
[2017-03-11] MEDS: FOLIC ACID 1 MG in NS 50 ML IV SCH (14:18)
--- NOTE | 2017-03-11 15:46 | PROGRESS NOTE ---
DATE: 03/11/2017 SUBJECTIVE: The patient did receive Ativan last night at 10 p.m., but has not received anything all day so far. She is resting comfortably, with her at the bedside. OBJECTIVE: Vital Signs: Temperature 96 degrees, blood pressure 131/51, heart rate 100, respirations 22, O2 saturation is 98% on room air. General: This is an elderly female, lying in bed in no acute distress. HEENT: Head normocephalic, atraumatic. Heart: S1 and S2 normal. Tachycardic. Lungs: Clear to auscultation bilaterally. No crackles. No rales. Abdomen: Positive bowel sounds. Soft, nontender, nondistended. Extremities: No edema. No cyanosis. No calf tenderness. Neurologic: The patient is awake, but confused, and does not follow commands. LABS: White blood cell count 3.7, hemoglobin 7.7, hematocrit 24, platelets 229, 000. Sodium 142, potassium 4, chloride 108, CO2 of 23, BUN 25, creatinine 1, glucose 126, calcium 8.5, magnesium 1.8, phosphorus 4.1, AST 66. ASSESSMENT AND PLAN: 1. Encephalopathy with delirium. The patient is currently resting comfortably at this time. She still does not follow commands and she is currently n.p.o. at this time. We will continue to monitor the patient closely for improvement. 2. Urinary tract infection secondary to Escherichia coli. The repeat urine culture is growing yeast. 3. Urinary retention. Continue with the Pham catheter. 4. Severe protein calorie malnutrition. The patient remains on TPN because she is not awake enough to eat. 5. Chronic kidney disease. Stable. The peritoneal dialysis catheter will be removed on Monday. 6. Diabetes mellitus, type 2. Continue on sliding scale insulin. 7. Hypertension. Controlled. 8. The plan of care was discussed with the patient's at the bedside. 9. Disposition.We will attempt to have the patient transferred to the LTAC in [place]. cc: Brandee Rhodes MD MTDD
[2017-03-11] MEDS: TPN ELECTROLYTES 20 ML, MAGNESIUM SULFATE 4 MEQ, POTASSIUM CHLORIDE 25 MEQ, SODIUM PHOS... IV SCH ×8 (16:34)
[2017-03-11] MEDS: LIPOSYN 20% 500 ML IV SCH (16:35)
[2017-03-11] MEDS: LOVENOX SUBQ SCH (18:27)
[2017-03-11] MEDS: HALDOL IV PRN (21:25)
[2017-03-11] MEDS: ATIVAN IV PRN (23:21)
[2017-03-12] MEDS: ZOSYN 3.375 GM/NS 3.375 GM/50 ML IVPB IV SCH ×3 (05:27→18:26)
[2017-03-12] MEDS: B & O 15A SUPP PR SCH ×3 (06:05→21:01)
[2017-03-12 06:18] LABS: MANUAL DIFF NEEDED? NO
[2017-03-12 06:22] LABS: BASO% 0.5 % (0.0-0.8); EOS# 0.26 X1000 (0.0-0.7); EOS% 6.4 % (0.0-10.0); HEMATOCRIT 25.8 % (37.0-47.0); HEMOGLOBIN 8.3 g/dL (12.0-16.0); IMM GRAN# 0.03 X1000 (0.0-0.04); IMM GRAN% 0.7 % (0.0-0.5); LYMPH# 0.96 X1000 (1.2-3.4); LYMPH% 23.5 % (20.5-51.1); MCH 28.2 PG (27-31); MCHC 32.2 g/dL (33-37); MCV 87.8 FL (81-99); MONO# 0.52 X1000 (0.11-0.59); MONO% 12.7 % (1.7-9.3); MPV 9.8 FL (7.4-10.4); NEUT% 56.2 % (42.2-75.2); PLT 237 X1000 (130-400); RBC 2.94 XMIL (4.2-5.4)
[2017-03-12 06:38] LABS: ALBUMIN 2.3 g/dL (3.5-5.0)
[2017-03-12] MEDS: KEPPRA 1,000 MG in NS 100 ML IV SCH ×2 (11:01→23:45)
[2017-03-12] MEDS: DIFLUCAN 100 MG/NS 100 MG/50 ML IVPB IV SCH (13:14)
[2017-03-12] MEDS: FOLIC ACID 1 MG in NS 50 ML IV SCH (13:55)
[2017-03-12] MEDS: LIPOSYN 20% 500 ML IV SCH (16:17)
[2017-03-12] MEDS: TPN ELECTROLYTES 20 ML, MAGNESIUM SULFATE 4 MEQ, POTASSIUM CHLORIDE 25 MEQ, SODIUM PHOS... IV SCH ×8 (16:17)
--- NOTE | 2017-03-12 17:26 | PROGRESS NOTE ---
DATE: 03/12/2017 SUBJECTIVE: The patient is a little agitated this morning. No acute events noted overnight. The patient remains on TPN. The patient is scheduled to have peritoneal dialysis catheter removed tomorrow. OBJECTIVE: Vital Signs: Temperature 97.9 degrees, blood pressure 128/59, heart rate 93, respirations 18, O2 saturation 92% on room air. General: This is a chronically ill-appearing, elderly female, lying in bed, in no acute distress. Head: Normocephalic, atraumatic. Heart: S1, S2. Normal. Regular rate and rhythm. Lungs: Clear to auscultation bilaterally. No wheezing. No rales. No rhonchi. Abdomen: Positive bowel sounds. Soft, obese , nontender, nondistended. Extremities: No edema. No cyanosis. Neurologic: The patient is very restless and does not follow commands. LABORATORY: White blood cell count 4, hemoglobin 8.3, hematocrit 25, platelets 237,000. Sodium 142, potassium 4, chloride 108, CO2 23, BUN 23, creatinine 1, glucose 114. ASSESSMENT AND PLAN: 1. Encephalopathy with delirium. Unchanged. Neurology is following. 2. Urinary tract infection secondary to yeast. The patient is on Diflucan. 3. Severe protein calorie malnutrition. Continue on total parenteral nutrition. 4. Chronic kidney disease. Stable. 5. Diabetes mellitus type 2. Continue on sliding scale insulin. 6. Hypertension. Controlled. 7. The patient will have the peritoneal dialysis catheter removed tomorrow. 8. The plan of care was discussed with the patient's at the bedside. 9. Disposition. We will attempt to have the patient transfered to the LTAC in [place]. cc: Brandee Rhodes MD [facility]
[2017-03-12] MEDS: LOVENOX SUBQ SCH (18:27)
[2017-03-12] MEDS: ATIVAN IV PRN (23:45)
[2017-03-13] MEDS: ZOSYN 3.375 GM/NS 3.375 GM/50 ML IVPB IV SCH ×3 (00:17→12:25)
[2017-03-13] MEDS: B & O 15A SUPP PR SCH ×3 (02:39→17:37)
[2017-03-13] MEDS: HALDOL IV PRN (03:01)
[2017-03-13 06:23] LABS: MANUAL DIFF NEEDED? NO
[2017-03-13 06:25] LABS: BASO% 0.2 % (0.0-0.8); EOS# 0.13 X1000 (0.0-0.7); EOS% 2.3 % (0.0-10.0); HEMATOCRIT 29.6 % (37.0-47.0); HEMOGLOBIN 9.5 g/dL (12.0-16.0); IMM GRAN# 0.06 X1000 (0.0-0.04); LYMPH# 0.55 X1000 (1.2-3.4); LYMPH% 9.6 % (20.5-51.1); MCH 28.5 PG (27-31); MCHC 32.1 g/dL (33-37); MCV 88.9 FL (81-99); MONO% 3.5 % (1.7-9.3); MPV 10.2 FL (7.4-10.4); NEUT% 83.4 % (42.2-75.2); PLT 187 X1000 (130-400); RBC 3.33 XMIL (4.2-5.4)
[2017-03-13 06:38] LABS: CALCIUM 8.6 mg/dL (8.8-10.2); POTASSIUM 4.2 mmol/L (3.5-5.1)
--- NOTE | 2017-03-13 07:55 | CONSULTATION ---
DATE OF CONSULTATION: 03/13/2017 CHIEF COMPLAINT: Resolved renal dysfunction. HISTORY OF PRESENT ILLNESS: This is a 71-year-old white female, known to me from recent placement of a PD catheter for uremia. In the postoperative period her uremia appears to have resolved and she is making urine satisfactorily. She additionally has developed altered sensorium of unknown etiology. I have been asked to remove her PD catheter. OTHER MEDICAL PROBLEMS: Include hypertension and anorexia. MEDICATIONS: Listed. ALLERGIES: Sulfa, codeine, cortisone, Levaquin, SSUANNAH inhibitors, and latex. SOCIAL HISTORY: She is and has an attentive . PHYSICAL EXAMINATION: General: She is currently unresponsive. Breathing comfortably. Lungs: Bilateral breath sounds. Abdomen: Soft and does not elicit any tenderness. The catheter is coming out the right side of the abdomen. Wounds look satisfactory. LABS: White count is 5,700, hemoglobin 9.5, hematocrit 29. BUN 22, creatinine 1.1. ASSESSMENT: 1. Altered sensorium. 2. Resolved renal function. PLAN: Removal of PD catheter. Will plan to proceed today. cc: Fletcher Amezcua MD
[2017-03-13 09:57] LABS: URINE SOURCE CATH
--- NOTE | 2017-03-13 10:38 | PROGRESS NOTE ---
DATE: 03/13/2017 SUBJECTIVE: Since I last saw her, there has been report per the chart that Ms. Mccartney has had some good days where she was more calm and less agitated but this has not been consistent. The family says that she has been more agitated over the weekend, pulling out her IV lines and such. They do report that a couple times a day she may look directly at them and say something that was very easy to understand. This seems to happen when she is angry or in pain. Again, it is not consistent. Otherwise she has been moaning and quite agitated. ID is now on board. On 03/09 she was noted to have a distended bladder with bilateral hydronephrosis on CT. A Pham catheter has been replaced. She is being treated for a UTI secondary to yeast. She is having her peritoneal dialysis catheter removed later today. Some of the newly started psychiatric medications for behavioral control have been discontinued. She has Haldol and Ativan p.r.n. for agitation. OBJECTIVE: Vital signs: Reviewed. She spiked a temperature of 102.4 degrees early this morning. General: The patient is supine in bed, snoring. She does not attend. She does not respond to voice. She grimaces when I touch her shoulder and call to her. Neck: Supple. No meningismus. Cardiovascular: Regular rate and rhythm. No murmurs appreciated. Lungs: Coarse anteriorly. Abdomen: Soft. There is no grimacing with palpation. Neurologic: Pupils are equal, round, reactive to light, 3 to 2 mm OU. Face is symmetrical with equal grimace. Could not appreciate dolls eyes. Again not resisting passive eye opening. Normal bulk and tone. She withdraws to stimulation of all extremities and this is at least against gravity and equal. Reflexes appear to be symmetric throughout and reduced in the lower extremities. Coordination and gait testing were not performed due to mental status. PERTINENT DIAGNOSTICS: White count 5.73, hemoglobin 9.5, hematocrit 29.6, platelets 187,000. Sodium 140, potassium 4.2, CO2 16, BUN 22, creatinine 1.1, glucose 125, AST was 66. ASSESSMENT AND PLAN: Encephalopathy of unclear etiology. Course has been protracted and complicated by developing issues of urinary tract infection and obstructive uropathy. Question of new onset seizures early in her hospitalization, being treated with Keppra. Spiked temperature this morning. I understand that psychiatric illness is in the differential as well. As it has been nearly 3 weeks since first obtained, would recommend repeating the following studies in this order: routine EEG now (this has been ordered), then brain MRI with and without contrast, and lastly, would recommend repeating the lumbar puncture if these previous studies are unrevealing. Initial LP was done with fluro. When obtaining csf, would recommend a large volume csf tap to have the lab hold the csf in case further tests are indicated which would depend on the results of the basic studies. Would start with ordering cell count and differential in both tubes 1 AND 4. Also protein and glucose in tube 2. Send gram stain and culture in tube 3. Suggest sending viral studies that were not sent on the first lumbar puncture. If these csf studies are clearly normal, then further csf studies are likely unwarranted. The family is hoping for a "new set of eyes" for further diagnostic clarification given the patient's protracted course. Might consider transfer to [facility], if this is even possible. cc: Myra Toney MD MTDD
[2017-03-13 11:06] LABS: URINE MICRO REVIEW NEEDED? YES
[2017-03-13 11:18] LABS: UR EPITHELIAL CELLS <10 /HPF (<10); URINE BACTERIA NEGATIVE /HPF; URINE RBC TNTC /HPF (<10); URINE WBC TNTC /HPF (<10)
[2017-03-13 11:31] LABS: COLOR YELLOW; URINE CASTS NONE SEEN; URINE CRYSTALS NONE SEEN
[2017-03-13 11:32] LABS: BILIRUBIN URINE NEGATIVE (NEGATIVE); GLUCOSE URINE NEGATIVE (NEGATIVE); SP GRAVITY URINE 1.018; TURBIDITY URINE HAZY (CLEAR)
[2017-03-13 11:33] LABS: BLOOD URINE MODERATE (NEGATIVE); LEUKOCYTES URINE MODERATE (NEGATIVE); NITRITE URINE NEGATIVE (NEGATIVE); PH URINE 5.5; PROTEIN URINE TRACE mg/dL (NEGATIVE); UROBILINOGEN URINE NORMAL (NORMAL)
[2017-03-13] MEDS: KEPPRA 1,000 MG in NS 100 ML IV SCH (11:42)
[2017-03-13] MEDS ORDERED: SODIUM CHLORIDE 0.9% 10 ML ONE (11:48)
--- NOTE | 2017-03-13 12:18 | Diag Imaging Result Document ---
PROCEDURE NAME: CT THORAX W/O CONTRAST - 03/13/2017 CT CHEST WITHOUT CONTRAST: TECHNIQUE: Dose-reduction protocol. FINDINGS: No pleural effusions. The heart is not enlarged. No thoracic aortic aneurysm. No enlarged mediastinal lymph nodes. No consolidation. No bronchiectasis. Minimal atelectasis or scarring in the superior segment of the left lower lobe. There is a left-sided PICC line. IMPRESSION: No pneumonia.
[2017-03-13] MEDS: DIFLUCAN 100 MG/NS 100 MG/50 ML IVPB IV SCH (12:22)
[2017-03-13 13:43] LABS: CALCIUM 8.3 mg/dL (8.8-10.2); MAGNESIUM 1.7 mg/dL (1.5-2.7); POTASSIUM 3.7 mmol/L (3.5-5.1); PREALBUMIN 13.8 mg/dL (20-40)
--- NOTE | 2017-03-13 14:05 | PROGRESS NOTE ---
DATE: 03/13/2017 SUBJECTIVE: The patient had a very restless night as per the family. Right now she is resting comfortably. There has been no change in her mental status. OBJECTIVE: Vital Signs: Temperature 102.4 degrees, blood pressure 143/51, heart rate 123, respirations 26, O2 saturation is 94% on room air. General: This is an elderly female, lying in bed, in no acute distress. Head: Normocephalic, atraumatic. Heart: S1, S2. Normal. Tachycardic. Lungs: Coarse breath sounds bilaterally. Abdomen: Positive bowel sounds. Soft, nontender, nondistended. Extremities: No edema. No cyanosis. No calf tenderness. Neurologic: The patient is resting at this time but she does not follow commands when awake. LABS: White blood cell count 5.7, hemoglobin 9.5, hematocrit 29, platelets 187,000. Sodium 140, potassium 4.2, chloride 109, CO2 16, BUN 22, creatinine 1.1, glucose 125, calcium 8.6, phosphorus 3.5, albumin 2. ASSESSMENT AND PLAN: 1. Encephalopathy with delirium. Unchanged. We will continue to monitor for improvement. 2. Fever. The CT done today shows no evidence of infection. Blood cultures have been obtained as well as a repeat urinalysis and urine culture. ID is following. 3. Severe protein calorie malnutrition. Continue on TPN. 4. Chronic kidney disease. Stable. 5. Hypertension. Controlled. 6. Diabetes mellitus type 2. Continue on sliding scale insulin. 7. The patient is scheduled to have her peritoneal dialysis catheter removed today. 8. Disposition. healthcare advisory services manager is working on LTAC placement for the patient. cc: Brandee Rhodes MD
[2017-03-13] MEDS: FOLIC ACID 1 MG in NS 50 ML IV SCH (14:08)
[2017-03-13] MEDS: LIPOSYN 20% 500 ML IV SCH (14:09)
[2017-03-13] MEDS: TPN ELECTROLYTES 20 ML, MAGNESIUM SULFATE 4 MEQ, POTASSIUM CHLORIDE 25 MEQ, SODIUM PHOS... IV SCH ×8 (14:39)
--- NOTE | 2017-03-13 17:24 | PROGRESS NOTE ---
DATE: 03/13/2017 PRESENT ILLNESS: The patient continues to be in a delirium today. She has been very lethargic. MEDICATIONS: The patient is getting Zosyn and B O suppositories. Also she has been placed on fluconazole because of a yeast urinary tract infection. PHYSICAL EXAMINATION: Vital Signs: Temperature maximum was 102.4, now it is 99.6, pulse 123, respirations 26, blood pressure 143/51. General: This is a chronically ill-appearing, elderly female. She is lethargic today. Lungs: Clear to auscultation. Cardiovascular: Regular heart rate. Neck: No meningismus. Abdomen: Soft and nontender. The peritoneal dialysis catheter site is not purulent or erythematous. LAB AND X-RAY: CT scan of the chest showed no pneumonia. The patient's CBC today shows a white count of 5,730, hemoglobin 9.5, and platelet count 187,000. Creatinine is 1.0, GFR is 55. Urinalysis shows white cells, no bacteria. Urine culture is growing yeast. ASSESSMENT AND PLAN: The patient has a delirium, the cause of which is uncertain. She also has a fungal urinary tract infection. Since she will was febrile I think it is reasonable to treat the patient's fungal urinary tract infection in case it was the cause of the patient's fever. I am discontinuing Zosyn. This is day 5 of treatment with Zosyn and day 1 of treatment with fluconazole. Today Dr. Amezcua will be removing the patient's peritoneal dialysis catheter. The patient's comorbidities include being elderly, prior placement of a peritoneal dialysis catheter. cc: Larry Kendall MD
[2017-03-13] MEDS ORDERED: MARCAINE 0.25% PF/EPI 1:200,000 ONE (17:46)
[2017-03-13] MEDS ORDERED: VERSED ONE (18:25)
[2017-03-13] MEDS ORDERED: DIPRIVAN 1% ONE (18:26)
--- NOTE | 2017-03-13 21:23 | OPERATIVE NOTE ---
PROCEDURE DATE: 03/13/2017 PROCEDURE PERFORMED: Removal of peritoneal dialysis catheter. SURGEON: Fletcher Amezcua MD. ROBOTIC WELDER: Kurt. PREOP DIAGNOSIS: Kidney failure resolution. POSTOPERATIVE DIAGNOSIS: Kidney failure resolution. DESCRIPTION OF PROCEDURE: Satisfactory monitoring anesthesia care was established. IV sedation accomplished. The abdomen is prepped and draped in a sterile fashion. We anesthetized the skin at the area in the midline at the umbilicus. We incised the area of the old incision, carried our incision down to the catheter. We grasped the catheter with a hemostat. We transected the catheter externally at the exit site. We then removed the catheter from the subcutaneous tunnel. We then cut the stitch that surrounded the catheter at the fascia and removed the pursestring stitch from the fascia and then the catheter easily came out of the abdominal cavity in toto. We closed the fascia with 2-0 Polysorb [id number] stitch x3. We placed some 3-0 Polysorb in subcutaneous tissue and closed the skin with a 4-0 Polysorb subcuticular stitch. Telfa and sterile OpSite was applied, 2 x 2 was placed at the catheter exit site. She tolerated this satisfactorily, was sent to the recovery room satisfactory condition. cc: Fletcher Amezcua MD
[2017-03-14] MEDS: B & O 15A SUPP PR SCH ×3 (00:07→13:57)
[2017-03-14] MEDS: KEPPRA 1,000 MG in NS 100 ML IV SCH ×2 (00:08→11:01)
[2017-03-14] MEDS ORDERED: DILAUDID IV ONE (03:50)
[2017-03-14 06:27] LABS: MANUAL DIFF NEEDED? NO
[2017-03-14 06:40] LABS: BASO% 0.3 % (0.0-0.8); EOS# 0.02 X1000 (0.0-0.7); EOS% 0.6 % (0.0-10.0); HEMATOCRIT 23.9 % (37.0-47.0); HEMOGLOBIN 7.5 g/dL (12.0-16.0); IMM GRAN# 0.05 X1000 (0.0-0.04); IMM GRAN% 1.6 % (0.0-0.5); LYMPH% 19.1 % (20.5-51.1); MCH 27.8 PG (27-31); MCHC 31.4 g/dL (33-37); MCV 88.5 FL (81-99); MONO# 0.21 X1000 (0.11-0.59); MONO% 6.7 % (1.7-9.3); NEUT% 71.7 % (42.2-75.2); PLT 171 X1000 (130-400)
[2017-03-14 06:50] LABS: AGAP 12; BUN 23 mg/dL (8-22); CALCIUM 8.6 mg/dL (8.8-10.2); CHLORIDE 108 mmol/L (98-107); COSMO 290; MAGNESIUM 1.7 mg/dL (1.5-2.7); POTASSIUM 3.3 mmol/L (3.5-5.1); SODIUM 142 mmol/L (136-145); TCO2 22 mmol/L (25-35)
[2017-03-14] MEDS ORDERED: POTASSIUM CHLORIDE 40 MEQ/SWI 40 MEQ/100 ML IVPB IV ONE (07:20)
[2017-03-14] MEDS ORDERED: PIGGYBACK SET 7393 ONE (08:09)
[2017-03-14] MEDS ORDERED: 1/2 NS 500 ML ONE (08:09)
[2017-03-14] MEDS ORDERED: EXTENSION SET 32 IN 4522 ONE (08:09)
[2017-03-14] MEDS: ATIVAN IV PRN (09:07)
[2017-03-14] MEDS: HALDOL IV PRN (09:38)
[2017-03-14] MEDS: DILAUDID IV PRN ×3 (11:03→21:19)
[2017-03-14] MEDS: DIFLUCAN 100 MG/NS 100 MG/50 ML IVPB IV SCH (11:35)
--- NOTE | 2017-03-14 13:42 | Diag Imaging Result Doc PS360 ---
EXAM: MRI BRAIN W W/O CONTRAST INDICATION: ENCEPHALITIS COMPARISON: 02/23/2017 FINDINGS: There is no evidence of acute infarct. There are a few tiny foci of T2/FLAIR hyperintensity in the periventricular and subcortical white matter suggesting minimal microangiopathy, stable. There is stable mild diffuse brain atrophy. There is a subcentimeter enhancing extra-axial nodule near the cranial vault on the right that is stable and is most consistent with a small meningioma. No other discrete intracranial mass, mass effect, or intracranial hemorrhage is appreciated. A partially empty sella turcica is noted incidentally like on the previous study. Surrounding soft tissues and bony structures are essentially unremarkable. IMPRESSION: 1.Tiny enhancing extra-axial nodule at the cranial vault on the right that is stable and probably represents a small meningioma. 2.Mild diffuse brain atrophy and suggestion of minimal white matter microangiopathy that is stable. Electronically signed by Nirav Girard 03/14/2017 1:39 PM
[2017-03-14] MEDS: FOLIC ACID 1 MG in NS 50 ML IV SCH (14:00)
[2017-03-14] MEDS ORDERED: VANCOMYCIN IV PER PHARMACY MISC SCH (14:00)
[2017-03-14] MEDS ORDERED: TPN ELECTROLYTES 20 ML, MAGNESIUM SULFATE 4 MEQ, POTASSIUM CHLORIDE 20 MEQ, SODIUM PHOS... IV SCH ×8 (14:00)
--- NOTE | 2017-03-14 14:23 | PROGRESS NOTE ---
DATE: 03/14/2017 PRESENT ILLNESS: The patient appears to still be in delirium. She is, for the most part, obtunded. She is having a spiking fever. MEDICATIONS: Zosyn was discontinued yesterday. The patient is, however, on fluconazole because of a yeast urinary tract infection. PHYSICAL EXAMINATION: Vital Signs: Temperature maximum was 101.8. Currently, it is 98.6, pulse 95, respirations 18, blood pressure 140/54. Generally, this is an ill-appearing elderly female. She is in no acute distress. At this time, she is obtunded. Neck: No meningismus. Lungs clear to auscultation. Cardiovascular: Regular heart rate. Abdomen soft and nontender. The operative site where the dialysis catheter was removed is not swollen or erythematous. LABORATORY DATA AND X-RAY: An MRI of the brain shows a small meningioma and diffuse brain atrophy. Creatinine is 0.9. The GFR is greater than 60. CBC shows a white count of 3,140. Hemoglobin 7.5 and platelet count 171,000. ASSESSMENT AND PLAN: Unfortunately, I do not know why the patient has her altered mental status and fever. Dr. Rhodes and I talked this over with the patient, and we agree to start steroids on the patient to see if that helps her respond. I have added antimicrobial coverage with vancomycin and cefepime in case there is some infection which may become more apparent when the steroids are started. Patient's comorbidity is that she is elderly. She has previously had a peritoneal dialysis catheter which has been removed. cc: Larry Kendall MD
--- NOTE | 2017-03-14 14:33 | PROGRESS NOTE ---
DATE: 03/14/2017 SUBJECTIVE: The patient remains confused. She has also been febrile since yesterday evening with a T-max of 101.8. OBJECTIVE: Vital Signs: T-max 101.8, blood pressure 140/54, heart rate 95, respirations 18, O2 saturations 98% on room air. General: This is a morbidly obese, elderly female, lying in bed in no acute distress. Head: Normocephalic atraumatic. Heart: S1, S2 normal. Tachycardic. Lungs: Clear to auscultation bilaterally. No wheezing. No rales. No rhonchi. Abdomen: Positive bowel sounds. Soft, nontender, nondistended. Extremities: No edema. No cyanosis. No calf tenderness. Neurologic: The patient is currently sleeping, but she does move all 4 extremities. LABS: White blood cell count 3.1, hemoglobin 7.5, hematocrit 23, platelets 171. Sodium 142, potassium 3.3, chloride 108, CO2 of 22, BUN 23, creatinine 0.9, glucose 156, calcium 8.6, magnesium 1.7, phosphorus 3.4. ASSESSMENT AND PLAN: 1. Encephalopathy with delirium. The patient had a repeat MRI of the brain done today which is unchanged and unremarkable. However, the patient has been febrile since yesterday evening, so we will order an LP to be done tomorrow. This was discussed with the patient's family and they are in agreement with proceeding with this diagnostic study. 2. Fever. So far, the cultures are negative. Dr. Kendall is following. 3. Severe protein calorie malnutrition. Continue on TPN. 4. Chronic kidney disease. Stable. 5. Status post peritoneal dialysis catheter removal. Stable. 6. Hypertension. Controlled. 7. Diabetes mellitus type 2. Continue on sliding scale insulin. cc: Brandee Rhodes MD
--- NOTE | 2017-03-14 15:40 | PROGRESS NOTE ---
DATE: 03/14/2017 SUBJECTIVE: No major changes. She has just gotten back from an MRI where she was pretreated with Ativan. She had an EEG yesterday. OBJECTIVE: Vital signs are reviewed. Spiking temperatures off and on. The patient is supine in bed, snoring, sedated after Ativan administration for MRI. She does not easily arouse but does respond to painful stimulus. She does not attend. Neck is supple. Cardiovascular: Regular rate and rhythm. No murmurs. Lungs are coarse anteriorly. Her pupils are equal, round, and reactive to light. Her face is symmetrical at rest with equal grimace. She is able to withdraw all of her extremities to painful stimulus, and this is at least against gravity. Reflexes are unchanged. PERTINENT DIAGNOSTICS: Her CO2 is 22. BUN is 23, creatinine 0.9. Glucose 156. Calcium 8.6. Phosphorus 3.4, magnesium 1.7. AST 24, ALT 22. Alkaline phosphatase 114. Ammonia 22. CRP 82. Total protein 6. Albumin 2. Pre-albumin 14. B12 on 02/23/2017 is 214. Vitamin D 5.6. Folate less than 2 on . TSH 0.59. Free T4 1.74. Cortisol 18.5. Routine EEG 03/13/2017 was reviewed. It was abnormal due to a [id number] generalized slowing indicative of a mild- to-moderate nonspecific encephalopathy. No epileptiform abnormalities or seizures were seen. ASSESSMENT AND PLAN: Encephalopathy of unclear etiology. Protracted course. Complicated by developing issues of urinary tract infection and obstructive uropathy. Also question of new onset seizures early in her hospitalization, being treated with Keppra. Spiking temperatures intermittently. The EEG has shown some mild improvement compared to the one she had before. It is still not normal. She went for a repeat brain MRI with and without contrast. That, again, did not show any acute findings or changes from prior. The plan is for her to have a repeat lumbar puncture in the morning to send for the typical and basic studies first. Obtaining extra CSF for the lab to hold should we need further testing. We will also send for thyroid peroxidase antibodies and thyroglobulin antibodies to evaluate for Ricky encephalopathy. She has had some significant vitamin deficiencies when she did arrive. cc: Myra Toney MD
[2017-03-14] MEDS: LIPOSYN 20% 500 ML IV SCH (17:11)
[2017-03-14] MEDS: MAXIPIME 2 GM/NS 2 GM/100 ML IVPB IV SCH (18:06)
--- NOTE | 2017-03-14 18:11 | EEG REPORT ---
DATE: 03/13/2017 REFERRING PHYSICIANS: Dr. Toney, Dr. Rhodes. EEG #: [id number]. MORTGAGE LOAN INTERVIEWER: Olimpia Gastelum. TECHNIQUE: A digitally recorded EEG with 1 extra EKG channel is obtained. HISTORY OF PRESENT ILLNESS: A 71-year-old female with altered mental status and possible seizures. Medications: Zosyn, Keppra, P.r.n. Ativan & Haldol. EEG FINDINGS: This is a technically limited EEG due to myogenic artifact and movement. A posterior dominant alpha rhythm is notably absent. The background consists of medium amplitude, 5- 6 hertz theta slowing with some admixed delta frequencies. No focal slowing is appreciated. No epileptiform discharges are seen. No seizures are seen. Hyperventilation was not performed. Photic stimulation did not induce a driving response. The patient is awake and agitated for the study and no stage 2 sleep is seen. EKG shows regular RR interval. IMPRESSION AND RECOMMENDATIONS: Abnormal routine EEG due to: 1. Mild to moderate generalized background slowing indicative of a mild to moderate encephalopathy. Generalized slowing is a nonspecific finding that can be seen in processes that diffusely affect the cerebrum including toxic metabolic, post hypoxic and infectious etiologies. 2. No definite epileptiform abnormalities and no seizures are seen. This does not rule out an underlying seizure disorder. cc: Myra Toney MD [facility]
[2017-03-14] MEDS ORDERED: VANCOMYCIN 2 GM in NS 500 ML IV ONE (20:00)
[2017-03-15] MEDS: DILAUDID IV PRN ×7 (00:20→22:53)
[2017-03-15] MEDS: KEPPRA 1,000 MG in NS 100 ML IV SCH ×2 (00:21→11:21)
[2017-03-15] MEDS: MAXIPIME 2 GM/NS 2 GM/100 ML IVPB IV SCH ×2 (05:28→18:04)
[2017-03-15 06:56] LABS: HEMATOCRIT 24.6 % (37.0-47.0); HEMOGLOBIN 7.6 g/dL (12.0-16.0); MCHC 30.9 g/dL (33-37)
[2017-03-15 07:05] LABS: AGAP 8; BUN 21 mg/dL (8-22); CALCIUM 8.4 mg/dL (8.8-10.2); CHLORIDE 110 mmol/L (98-107); COSMO 289; MAGNESIUM 1.9 mg/dL (1.5-2.7); POTASSIUM 3.9 mmol/L (3.5-5.1); SODIUM 142 mmol/L (136-145); TCO2 24 mmol/L (25-35)
[2017-03-15 09:25] LABS: MCH 28.3 PG (27-31); MCV 91.4 FL (81-99); MPV 10.8 FL (7.4-10.4); RBC 2.69 XMIL (4.2-5.4)
[2017-03-15 12:24] LABS: ALBUMIN 2.2 g/dL (3.5-5.0); ALKALINE PHOSPHATASE 148 U/L (32-104); DIRECT BILIRUBIN < 0.20 mg/dL (0.00-0.20); GOT 23 U/L (10-30); GPT 31 U/L (10-36); TOTAL BILIRUBIN 0.19 mg/dL (0.20-1.00); TOTAL PROTEIN 4.9 g/dL (6.3-8.3)
[2017-03-15] MEDS: DIFLUCAN 100 MG/NS 100 MG/50 ML IVPB IV SCH (13:10)
[2017-03-15] MEDS: FOLIC ACID 1 MG in NS 50 ML IV SCH (13:10)
--- NOTE | 2017-03-15 13:50 | PROGRESS NOTE ---
DATE: 03/15/2017 SUBJECTIVE: The patient is resting comfortably. There was an attempt at an LP this morning however the interventional radiologist was unable to get any CSF. OBJECTIVE: Vital Signs: Temperature 98.1 degrees, blood pressure 135/57, heart rate 102, respirations 20, O2 saturations 99% on room air. General: This is an elderly female, lying in bed comfortably in no acute distress. Head: Normocephalic atraumatic. Heart: S1, S2. Normal. Tachycardic. Lungs: Coarse breath sounds bilaterally. No crackles. No rales. Abdomen: Positive bowel sounds. Soft, nontender, nondistended. Extremities: No edema. No cyanosis. No calf tenderness. Neurologic: The patient remains confused and delirious. The patient does look agitated quite frequently. LABS: White blood cell count 2.8. Hemoglobin 7.6, hematocrit 24, platelets 164,000. Sodium 142, potassium 3.9, chloride 110, CO2 24. BUN 21, creatinine 0.8, glucose 153. Calcium 8.4, phosphorus 2.2. Magnesium 1.96. Albumin 2.2. Globulin 2.7. ASSESSMENT AND PLAN: 1. Encephalopathy with delirium. The interventional radiologist was unable to get any cerebrospinal fluid during the LP today. The patient's fever appears to have resolved on the broad-spectrum antibiotics. We will continue to monitor for improvement and continue on the current antibiotic regimen. 2. CKD. Stable. 3. Severe protein calorie malnutrition. Continue on TPN. 4. Hypertension. Controlled. 5. Diabetes mellitus type 2. Continue on sliding scale insulin. 6. Status post peritoneal dialysis catheter removal. Stable. 7. Disposition. The patient is in the process of being assessed by the LTAC in [place]. We will await the disposition regarding that. cc: Brandee Rhodes MD
--- NOTE | 2017-03-15 14:23 | Diag Imaging Result Doc PS360 ---
EXAM: LUMBAR PUNCT W/FLURO GUIDE HISTORY: prolonged encephalopathy/fever COMPARISON: None. FINDINGS: The patient's on the floor gave consent. Patient was sedated prior to coming to the radiology Department. The lower back was cleaned and draped in the normal fashion. Lidocaine was used as a local anesthetic. Multiple attempts were made to advance a needle into the spinal canal. Patient was combative throughout the procedure. Unable to advance the needle into correct positioning. IMPRESSION: Unsuccessful fluoroscopy guided lumbar puncture. Electronically signed by Lito Aguiar 03/15/2017 2:21 PM
--- NOTE | 2017-03-15 17:41 | PROGRESS NOTE ---
DATE: 03/15/2017 PRESENT ILLNESS: The patient still seems to be in a delirium today. She seems a little more alert than she was yesterday. She has not had fever since yesterday. MEDICATIONS: The patient is on vancomycin and cefepime. This is day 1 for both the antibiotics. The patient is also on fluconazole. This is day 3 of fluconazole. PHYSICAL EXAMINATION: Vital Signs: Temperature is 97.5 degrees, pulse 115, respirations 20, blood pressure 112/88. General: This is a somewhat ill, somewhat delirious elderly female. Although today she did answer some questions and overall I think seems a little more alert than she had been. Lungs: Clear to auscultation. Cardiovascular: Regular heart rate. Abdomen: Soft and nontender. The site where the peritoneal dialysis catheter was removed was not erythematous or purulent. Extremities: The IV site is not erythematous or purulent. LAB AND X-RAY: Today the patient's CBC showed a white count of 2870, hemoglobin 7.6, and platelet count 164,000. The patient's creatinine is 0.8. GFR is greater than 60. The results of blood cultures drawn 2 days ago show that both are showing no growth. There is no new x-ray. ASSESSMENT AND PLAN: The patient is in a delirium, the etiology of which is uncertain to me. Dr. Rhodes and I talked about the patient and also I talked with the . I have ordered to start steroids tonight, and Protonix has been added also. The patient already is on antimicrobial coverage. COMORBIDITIES: She is elderly. She previously had peritoneal dialysis catheter inserted but this was removed yesterday. cc: Larry Kendall MD
[2017-03-15] MEDS: LIPOSYN 20% 500 ML IV SCH (18:51)
[2017-03-15] MEDS: HALDOL IV PRN (18:51)
[2017-03-15] MEDS: TPN ELECTROLYTES 20 ML, MAGNESIUM SULFATE 4 MEQ, POTASSIUM CHLORIDE 25 MEQ, SODIUM PHOS... IV SCH ×8 (18:52)
[2017-03-15] MEDS: VANCOMYCIN 1,500 MG in NS 250 ML IV SCH (20:41)
[2017-03-15] MEDS: SOLU-MEDROL IV SCH (20:42)
[2017-03-15] MEDS: SODIUM CHLORIDE 0.9% INJ SCH (20:42)
[2017-03-15] MEDS: PROTONIX IV SCH (20:42)
[2017-03-16] MEDS: SOLU-MEDROL IV SCH ×3 (00:57→16:47)
[2017-03-16] MEDS: DILAUDID IV PRN ×9 (00:58→22:08)
[2017-03-16] MEDS: HALDOL IV PRN ×3 (01:03→21:47)
[2017-03-16] MEDS: SODIUM CHLORIDE 0.9% INJ SCH ×2 (05:12→16:48)
[2017-03-16] MEDS: PROTONIX IV SCH ×2 (05:12→16:48)
[2017-03-16] MEDS: MAXIPIME 2 GM/NS 2 GM/100 ML IVPB IV SCH ×2 (05:13→16:37)
[2017-03-16 06:16] LABS: HEMATOCRIT 24.7 % (37.0-47.0); HEMOGLOBIN 7.8 g/dL (12.0-16.0); MCH 28.5 PG (27-31); MCHC 31.6 g/dL (33-37); MCV 90.1 FL (81-99); MPV 10.5 FL (7.4-10.4); RBC 2.74 XMIL (4.2-5.4)
[2017-03-16 06:35] LABS: AGAP 10; BUN 24 mg/dL (8-22); CALCIUM 8.7 mg/dL (8.8-10.2); CHLORIDE 104 mmol/L (98-107); COSMO 283; MAGNESIUM 1.9 mg/dL (1.5-2.7); POTASSIUM 4.4 mmol/L (3.5-5.1); SODIUM 135 mmol/L (136-145); TCO2 21 mmol/L (25-35)
[2017-03-16] MEDS: HUMULIN R SUBQ SCH ×5 (06:37→21:51)
[2017-03-16] MEDS: DIFLUCAN 100 MG/NS 100 MG/50 ML IVPB IV SCH (11:02)
[2017-03-16] MEDS: KEPPRA 1,000 MG in NS 100 ML IV SCH ×3 (11:02)
[2017-03-16] MEDS ORDERED: DILAUDID IM ONE (12:45)
[2017-03-16] MEDS ORDERED: D10W 1,000 ML IV SCH (13:15)
[2017-03-16] MEDS: FOLIC ACID 1 MG in NS 50 ML IV SCH (13:55)
--- NOTE | 2017-03-16 14:19 | DISCHARGE SUMMARY ---
ADMISSION DATE: 02/19/2017 DISCHARGE DATE: 03/16/2017 CONSULTATIONS: 1. Dr. Perea with Nephrology. 2. Dr. Lefty Ty with Neurology. 3. Dr. Otero with Neurology. 4. Dr. Morrissey with Hematology/Oncology. 5. Dr. Everett with Urology. 6. Dr. Larry Kendall with Infectious Disease. DISCHARGE DIAGNOSIS 1.Acute kidney injury on CKD 2.Global encephalopathy 3.Urinary tract infection secondary to E.coli and yeast 4.Protein calorie malnutrition 5.Morbid obesity 6.Hypertension 7.Diabetes Mellitus type 2 8.Obstructive uropathy 9.s/p peritoneal dialysis catheter removal PERTINENT PROCEDURES: 1. Head CT showed moderate cerebral atrophy. No acute disease. 2. Renal ultrasound showed mild left hydronephrosis. Otherwise stable. 3. Renal CT showed possibility of right-sided colitis that could not be excluded. No evidence of obstructing lesion in the left ureter. 4. Brain MRI showed mild cerebral atrophy. Small right superior parietal meningeal base nodule compatible with small meningioma. Global atrophy of the pituitary. 5. 02/23/2017 lumbar puncture performed by Radiology. 6. EEG was indicative of diffuse encephalopathy and was nonspecific. 7. Follow up renal ultrasound showed mild cortical scarring or thinning on the right. No visible renal abnormality. Mild left hydronephrosis which was seen on previous exam resolved. 8. Abdomen and pelvis CT showed obstructive uropathy apparently due to massive distention of the urinary bladder. 9. Chest CT showed no pneumonia. 10. Follow up EEG showed [id number] generalized background slowing. Indicative to mild-to- moderate encephalopathy. 11. Followup brain MRI showed tiny enhancing extra-axial nodule in the cranial vault on the right that is stable and probably represents a small meningioma. Mild diffuse brain atrophy and suggesting of minimal white matter, micro angiopathy that is stable. 12. Second lumbar puncture was unsuccessful on 03/15/2017. HOSPITAL COURSE: Ms. Mccartney is a 71-year-old female with a past medical history of type 2 diabetes, chronic kidney disease stage 3B, followed by Dr. Perea. Two days prior to her admission she had undergone a peritoneal dialysis catheter placed in her abdomen by Dr. Fletcher Amezcua. Since that time the reports that she has been cognitively declining. Prior to this, the family reports that she had a very slow progressive decline in her mentation but nothing compared to what she was at the time of her admission. They did report that her appetite for the last 2 months declined significantly to the point of a weight loss of 63 pounds. They also reported protracted nausea and occasional vomiting in 12 hours. The patient was unable to give any history because of the patient's symptoms; she was mildly diminished. She would follow commands; however, she did answer questions. She was admitted for metabolic encephalopathy to rule out underlying infection or very mild uremia with a consult with Dr. Perea. She did undergo a head CT that did not show anything acute, a renal ultrasound that showed left hydronephrosis. During her hospital course the patient has had numerous testing done. Everything has come back normal. Relatively unremarkable to explain her altered mentation. We did consult [facility] but they would not take the patient secondary to her not being ambulatory. They have also tried other facilities as well as in [place] and [place]. Family did request a 2nd opinion for her neurological status. We did consult Dr. Otero the new neurologist to review with the patient. She underwent a 2nd EEG as well as another brain MRI and an unsuccessful lumbar puncture. She was also followed by Dr. Larry Kendall with Infectious Disease for IV antibiotics. She was initially going to be transferred to LTAC; however, they did want to try some adjustments in her medications first to see if this would help with some of her altered mentation. After taking away and adding medications there was no change in her cognition. She also checked her for thyroid, peroxidase, ASA antibodies and thyroglobulin antibodies to evaluate her for Ricky encephalopathy because she had significant vitamin deficiencies when she was admitted. We have talked at length with the family again in reference to psych placement or rehab placement. They have chosen to go to LTAC to continue on with her treatment, try to get her stronger and then possible psych placement if she is more mobile. Patient continues with encephalopathy with delirium. She has been assessed by the LTAC in [place] and will be discharged there today. VITAL SIGNS: Temperature is 98.3 degrees, heart rate 102, respirations 20, blood pressure is 147/91, O2 is 98% on room air. DISCHARGE MEDICATIONS: 1. Diflucan 100 mg IV daily. 2. Keppra 1000 mg every 12 hours. 3. Solu-Medrol 40 mg IV every 8 hours. 4. Protonix 40 mg IV every 12 hours. 5. Cefepime 2 g IV every 12 hours. 6. Dilaudid 1 mg every 2 hours as needed for pain. 7. Discharge diet is TPN and Glucerna. DISPOSITION: Patient is being transferred to LTAC. DISCHARGE TIME: Greater than 40 minutes. Dictated by AMEENA Moran for Brandee Rhodes MD cc: Brandee Rhodes MD [facility]
[2017-03-16] MEDS ORDERED: NS 250 ML ONE (15:03)
--- NOTE | 2017-03-16 16:19 | PROGRESS NOTE ---
DATE: 03/16/2017 PRESENT ILLNESS: The patient remains delirious. MEDICATIONS: This is day 2 for vancomycin and cefepime, day 1 for steroids and day 4 for fluconazole. PHYSICAL EXAMINATION: Vital Signs: Temperature is 98.3 degrees, pulse 102, respirations 20, blood pressure 147/91. General: This is an ill-appearing, elderly female. She lies quiet for a few minutes and then becomes hyperactive. Lungs: Clear to auscultation. Cardiovascular: Regular heart rate. Abdomen: Soft and nontender. Neck: No meningismus. Neurologic: As mentioned above, the patient has episodes where she seems to be resting and then others where she is thrashing around in bed. LAB AND X-RAY: We do not have a radiographic study done. Her laboratory studies show a CBC with a white count of 3280, hemoglobin 7.8 and platelet count 180,000. Creatinine is 0.8. GFR is greater than 60. There is no new lab or x-ray today. ASSESSMENT AND PLAN: The patient is delirious. The plan is to continue for now her antibiotics and steroids. The patient is to be transferred to an LTAC. As far as her comorbidities the main comorbidities in this patient is that she is elderly. She previously had renal insufficiency which necessitated putting in a peritoneal dialysis catheter which subsequently was removed. ADDENDUM: Patient to be transferred to LTAC. cc: Larry Kendall MD MTDD
[2017-03-16] MEDS: LIPOSYN 20% 500 ML IV SCH (18:36)
[2017-03-16] MEDS: TPN ELECTROLYTES 20 ML, MAGNESIUM SULFATE 4 MEQ, POTASSIUM CHLORIDE 25 MEQ, SODIUM PHOS... IV SCH ×8 (18:37)
[2017-03-16] MEDS: VANCOMYCIN 1,500 MG in NS 250 ML IV SCH (19:53)
[2017-03-16 21:02] VITALS: BP 153/80
[2017-03-17] MEDS: HUMULIN R SUBQ SCH ×3 (02:02→10:16)
[2017-03-17] MEDS: DILAUDID IV PRN ×5 (02:06→11:44)
[2017-03-17] MEDS: SOLU-MEDROL IV SCH ×2 (02:06→10:11)
[2017-03-17] MEDS: MAXIPIME 2 GM/NS 2 GM/100 ML IVPB IV SCH (03:39)
[2017-03-17] MEDS: HALDOL IV PRN ×2 (03:39→11:09)
[2017-03-17] MEDS: PROTONIX IV SCH (05:44)
[2017-03-17] MEDS: SODIUM CHLORIDE 0.9% INJ SCH (05:44)
[2017-03-17 06:21] LABS: AGAP 17; BUN 26 mg/dL (8-22); CALCIUM 9.1 mg/dL (8.8-10.2); CHLORIDE 105 mmol/L (98-107); COSMO 292; POTASSIUM 4.9 mmol/L (3.5-5.1); SODIUM 140 mmol/L (136-145); TCO2 18 mmol/L (25-35)
[2017-03-17] MEDS: KEPPRA 1,000 MG in NS 100 ML IV SCH ×3 (11:06)
== END 2017-03-17 12:01 ==
LOC: ED 12:04 → 3N 21:23 → SUATTDRO 21:23 → 3N 02-20 11:02
PROVIDERS: ATTEND Internal Medicine